=== PATIENT | male | born 1940 | race Hispanic/Latino ===

== ENCOUNTER 2018-03-14 22:22 | Inpatient (IN) | payer MEDICARE, OTHER ==
--- NOTE | 2018-03-14 23:30 | ED PDOC ---
Lower Extremity Pain/Injury Time Seen by Provider: 03/14/18 22:50 Chief Complaint (Nursing): Lower Extremity Problem/Injury Chief Complaint (Provider): Lower Extremity Problem/Injury History Per: Patient History/Exam Limitations: no limitations Onset/Duration Of Symptoms: Worse Since (7 days ago) Current Symptoms Are (Timing): Still Present Additional Complaint(s): 77 years old male with history of CHF, CAD presents to the ED complaining of bilateral chronic leg swelling that worsened since last week associated with weight gain about 10 pounds. Patient reports more weeping of edema during last week than usual. Patient denies any shortness of breath, chest pain, fever or cough. PMD: Mai Ball Past Medical History Reviewed: Historical Data, Nursing Documentation, Vital Signs Vital Signs: Last Vital Signs Temp 97.6 F 03/14/18 22:32 Pulse 69 03/14/18 22:32 Resp 18 03/14/18 22:32 BP 131/80 03/14/18 22:32 Pulse Ox 99 03/14/18 22:32 - Medical History PMH: CAD, CHF - Surgical History Surgical History: No Surg Hx - Family History Family History: States: Unknown Family Hx - Home Medications Home Medications: Ambulatory Orders Medication Instructions Recorded Apixaban [Eliquis] 2.5 mg PO BID 03/15/18 Atorvastatin [Lipitor] 20 mg PO DAILY 03/15/18 Furosemide [Lasix] 20 mg PO BID 03/15/18 Prednisone [Deltasone] 10 mg PO DAILY 03/15/18 - Allergies Allergies/Adverse Reactions: Allergies Allergy/AdvReac Type Severity Reaction Status Date / Time No Known Allergies Allergy Verified 03/14/18 22:45 Review of Systems ROS Statement: Except As Marked, All Systems Reviewed And Found Negative Constitutional: Negative for: Fever Cardiovascular: Negative for: Chest Pain Respiratory: Negative for: Cough, Shortness of Breath Musculoskeletal: Positive for: Other (Bilateral leg swelling) Physical Exam - Reviewed Nursing Documentation Reviewed: Yes Vital Signs Reviewed: Yes - Physical Exam Appears: Positive for: Non-toxic, No Acute Distress Head Exam: Positive for: ATRAUMATIC, NORMAL INSPECTION Skin: Positive for: Normal Color, Warm, Dry Eye Exam: Positive for: Normal appearance, EOMI, PERRL ENT: Positive for: Normal ENT Inspection Neck: Positive for: Normal, Painless ROM, Supple Cardiovascular/Chest: Positive for: Regular Rate, Rhythm. Negative for: Murmur Respiratory: Positive for: Normal Breath Sounds. Negative for: Respiratory Distress Gastrointestinal/Abdominal: Positive for: Normal Exam, Soft. Negative for: Tenderness Extremity: Positive for: Pedal Edema (Bilateral), Other (Chronic wound to left salas and left ankle lateral malleolus) Neurologic/Psych: Positive for: Alert, Oriented - Laboratory Results Result Diagrams: 03/14/18 23:30 03/14/18 23:30 - ECG ECG: Positive for: Interpreted By Me, Viewed By Me ECG Rhythm: Positive for: Sinus Rhythm, 1st Degree Heart Block, Right Bundle Branch Block. Negative for: Normal QRS, Normal ST Segment Rate: 67 O2 Sat by Pulse Oximetry: 99 (RA) Pulse Ox Interpretation: Normal - Radiology X-Ray: Interpreted by Me, Viewed By Me X-Ray Interpretation: Cardiomegaly, Other (vascular congestion) Medical Decision Making Medical Decision Making: Time: 2321 Initial impression: Bilateral leg swelling. Differential includes but not limited to CHF exacerbation. Initial plan: --EKH --BTN --BMP --Troponin --CBC --Chest X-Ray --Lasic 40 mg Po --Tylenol 325 mg Po 0000 Patient is transferred to Dr. Duarte's care from co. Scribe Attestation: Documented by Yue Dwyer acting as a scribe for Riley Lerner MD. Provider Scribe Attestation: All medical record entries made by the Scribe were at my direction and personally dictated by me. I have reviewed the chart and agree that the record accurately reflects my personal performance of the history, physical exam, medical decision making, and the department course for this patient. I have also personally directed, reviewed, and agree with the discharge instructions and disposition. Disposition - Clinical Impression Clinical Impression: CHF exacerbation - Patient ED Disposition Is Patient to be Admitted: Yes Discussed With : Franc Alvarez Doctor Will See Patient In The: Hospital Counseled Patient/Family Regarding: Studies Performed, Diagnosis - Disposition Disposition Time: 23:30 Condition: FAIR - Pt Status Changed To: Hospital Disposition Of: Observation - POA Present On Arrival: Pressure Ulcer
[2018-03-14 23:55] LABS: BASO # 0.1 K/uL (0.0-0.2); BASO % 0.5 % (0.0-2.0); EOS # 0.2 K/uL (0.0-0.7); LYMPH # 0.7 K/uL (1.0-4.3); LYMPH % 6.9 % (20.0-40.0); MEAN CELL VOLUME 95.9 fl (80.0-94.0); MEAN CORPUSCULAR HEMOGLOBIN 33.1 pg (27.0-31.0); MEAN CORPUSCULAR HGB CONC 34.5 g/dL (33.0-37.0); MEAN PLATELET VOLUME 10.4 fl (7.2-11.7); MONO # 0.3 K/uL (0.0-0.8); MONO % 3.2 % (0.0-10.0); NEUT % 87.4 % (50.0-75.0); NRBC % 0.2 % (0.0-0.0); PLATELET COUNT 157 K/uL (130-400); RBC 3.94 Mil/uL (4.40-5.90); RED CELL DISTRIBUTION WIDTH 16.2 % (11.5-14.5); WHITE BLOOD COUNT 10.4 K/uL (4.8-10.8)
[2018-03-15] LABS: CALCIUM 8.7 mg/dL (8.4-10.2)
[2018-03-15 00:21] LABS: TROPONIN I 0.799 ng/mL (0.00-0.120)
[2018-03-15 00:40] LABS: BANDS 1 % (0-2); EOSINOPHIL 1 % (0-7); LYMPHOCYTE 6 % (20-50); METAMYELOCYTE 1 % (0-0); MONOCYTE 7 % (0-10); NEUTROPHIL 84 % (42-75); TOTAL CELLS COUNTED 100
[2018-03-15 00:41] LABS: ANISOCYTOSIS SLIGHT; PLATELET ESTIMATE NORMAL (NORMAL); POIKILOCYTOSIS SLIGHT; TEARDROP CELLS SLIGHT
[2018-03-15 00:42] LABS: OVALOCYTES SLIGHT
--- NOTE | 2018-03-15 09:52 | RAD ---
HISTORY: leg swelling COMPARISON: No prior. FINDINGS: LUNGS: No active pulmonary disease. A small calcified granuloma seen the lateral mid left lung. PLEURA: No significant pleural effusion identified, no pneumothorax apparent. CARDIOVASCULAR: Cardiomegaly. No pulmonary derangement appreciated. OSSEOUS STRUCTURES: No significant abnormalities. VISUALIZED UPPER ABDOMEN: Normal. OTHER FINDINGS: None. IMPRESSION: Cardiomegaly. No pulmonary vascular congestion. No infiltrate bilaterally.
[2018-03-15] MEDS: Potassium Chloride 20 mEq ER Tab PO SCH (10:39)
--- NOTE | 2018-03-15 11:11 | CP.PCM.CON ---
History of Present Illness - History of Present Illness History of Present Illness: 77 years old male with history of CHF, CAD presents to the ED complaining of bilateral chronic leg swelling that worsened since last week associated with weight gain about 10 pounds. Patient reports more weeping of edema during last week than usual. Patient denies any shortness of breath, chest pain, fever or cough. Pt denies SOB / DAVID No chest pain Several months ago while living in [place] he had CHF / Cath with 2 Stents placed He has had a chronic problem with leg edema and a chronic stasis ulcer of his leg Troponin: elevated BNP: 33,200 Creatinine: 1.6 Review of Systems - Constitutional Constitutional: Weight Gain - Cardiovascular Cardiovascular: Leg Edema Past Patient History - Past Medical History & Family History Past Medical History?: Yes - Past Social History Smoking Status: Never Smoked - CARDIAC Hx Cardiac Disorders: Yes (HTN, CAD, CHF, High cholesterol) - PULMONARY Hx Respiratory Disorders: No - NEUROLOGICAL Hx Neurological Disorder: No - HEENT Hx HEENT Problems: No - RENAL Hx Chronic Kidney Disease: No - ENDOCRINE/METABOLIC Hx Endocrine Disorders: No - HEMATOLOGICAL/ONCOLOGICAL Hx Blood Disorders: No - INTEGUMENTARY Hx Dermatological Problems: No - MUSCULOSKELETAL/RHEUMATOLOGICAL Hx Musculoskeletal Disorders: No - GASTROINTESTINAL Hx Gastrointestinal Disorders: No - GENITOURINARY/GYNECOLOGICAL Hx Genitourinary Disorders: No - PSYCHIATRIC Hx Psychophysiologic Disorder: No - SURGICAL HISTORY Hx Surgeries: Yes Hx Orthopedic Surgery: Yes (ankle and knee surgery) - ANESTHESIA Hx Anesthesia: Yes Hx Anesthesia Reactions: No Meds Allergies/Adverse Reactions: Allergies Allergy/AdvReac Type Severity Reaction Status Date / Time No Known Allergies Allergy Verified 03/14/18 22:45 - Medications Medications: Current Medications Apixaban (Eliquis) 2.5 mg PO BID SAMANTHA PRN Reason: Protocol Last Admin: 03/15/18 10:39 Dose: 2.5 mg Atorvastatin Calcium (Lipitor) 20 mg PO DAILY [facility] Furosemide (Lasix) 40 mg IV Q12 [facility] Last Admin: 03/15/18 10:38 Dose: 40 mg Potassium Chloride (K-Dur 20 Meq Er Tab) 20 meq PO DAILY [facility]ANTHA Last Admin: 03/15/18 10:39 Dose: 20 meq Prednisone (Prednisone Tab) 10 mg PO DAILY [facility] Last Admin: 03/15/18 10:37 Dose: 10 mg Physical Exam - Head Exam Head Exam: NORMAL INSPECTION - Eye Exam Eye Exam: Normal appearance - ENT Exam ENT Exam: Normal Exam - Neck Exam Neck exam: Positive for: Normal Inspection - Respiratory Exam Respiratory Exam: NORMAL BREATHING PATTERN - Cardiovascular Exam Cardiovascular Exam: REGULAR RHYTHM - Extremities Exam Extremities exam: Positive for: pedal edema Results - Vital Signs Recent Vital Signs: Last Vital Signs Temp 97.4 F L 03/15/18 08:14 Pulse 66 03/15/18 08:14 Resp 18 03/15/18 08:14 BP 121/80 03/15/18 10:38 Pulse Ox 97 03/15/18 08:14 - Labs Result Diagrams: 03/14/18 23:30 03/14/18 23:30 Labs: Laboratory Results - last 24 hr 03/14/18 03/14/18 03/15/18 23:30 23:30 08:50 WBC 10.4 RBC 3.94 L Hgb 13.0 Hct 37.8 MCV 95.9 H MCH 33.1 H MCHC 34.5 RDW 16.2 H Plt Count 157 MPV 10.4 Neut % (Auto) 87.4 H Lymph % (Auto) 6.9 L Rogers % (Auto) 3.2 Eos % (Auto) 2.0 Baso % (Auto) 0.5 Neut # (Auto) 9.0 H Lymph # (Auto) 0.7 L Rogers # (Auto) 0.3 Eos # (Auto) 0.2 Baso # (Auto) 0.1 Neutrophils % (Manual) 84 H Band Neutrophils % 1 Lymphocytes % (Manual) 6 L Monocytes % (Manual) 7 Eosinophils % (Manual) 1 Metamyelocytes % 1 H Platelet Estimate Normal Poikilocytosis (manual Slight Anisocytosis (manual) Slight Tear Drop Cells Slight Ovalocytes Slight Sodium 134 Potassium 4.2 Chloride 95 L Carbon Dioxide 29 Anion Gap 14 BUN 61 H Creatinine 1.6 H Est GFR ( Amer) 51 Est GFR (Non-Af Amer) 42 Random Glucose 96 Calcium 8.7 Troponin I 0.7990 H* 0.7290 H* NT-Pro-B Natriuret Pep 92115 H Assessment & Plan (1) Acute on chronic left systolic heart failure Assessment and Plan: Pt will do well with Lasix BID IV Echo Status: Acute (2) Elevated troponin level Assessment and Plan: Most likely elevated from a combination of elevated Creatinine and BNP Status: Acute (3) Essential (primary) hypertension Status: Acute
[2018-03-15] MEDS: Promethazine DM 12.5 mg-30 mg/10 ml Syrup PO PRN ×2 (17:51→23:34)
[2018-03-16] MEDS: Potassium Chloride 20 mEq ER Tab PO SCH (08:40)
--- NOTE | 2018-03-16 10:09 | CP.PCM.HP ---
History of Present Illness - History of Present Illness History of Present Illness: This is a 77 y/o male admitted ofr worsening of leg edema for the past few weeks and weight gain of 10 pounds. He denies having any chest pain or SOB Noted to have elevated troponin and probnp. Has a hx of HTN King a cardiac stent placed few months ago in [place] where he used to live [facility]. He was told by his pmo analyst that he has severe tricuspid regurgitation and that he has cardiac dysfunction. hx of arthritis ( type?) hx of hyperglycemia Present on Admission - Present on Admission Any Indicators Present on Admission: No History of DVT/PE: No History of Uncontrolled Diabetes: No Urinary Catheter: No Decubitus Ulcer Present: No Past Patient History - Past Medical History & Family History Past Medical History?: Yes - Past Social History Smoking Status: Never Smoked - CARDIAC Hx Congestive Heart Failure: Yes - PULMONARY Hx Respiratory Disorders: No - NEUROLOGICAL Hx Neurological Disorder: No - HEENT Hx HEENT Problems: No - RENAL Hx Chronic Kidney Disease: No - ENDOCRINE/METABOLIC Hx Endocrine Disorders: No - HEMATOLOGICAL/ONCOLOGICAL Hx Blood Disorders: No - INTEGUMENTARY Hx Dermatological Problems: No - MUSCULOSKELETAL/RHEUMATOLOGICAL Hx Musculoskeletal Disorders: No - GASTROINTESTINAL Hx Gastrointestinal Disorders: No - GENITOURINARY/GYNECOLOGICAL Hx Genitourinary Disorders: No - PSYCHIATRIC Hx Psychophysiologic Disorder: No - SURGICAL HISTORY Hx Surgeries: Yes Hx Orthopedic Surgery: Yes (ankle and knee surgery) - ANESTHESIA Hx Anesthesia: Yes Hx Anesthesia Reactions: No Meds Allergies/Adverse Reactions: Allergies Allergy/AdvReac Type Severity Reaction Status Date / Time No Known Allergies Allergy Verified 03/14/18 22:45 Physical Exam - Head Exam Head Exam: NORMAL INSPECTION - Eye Exam Eye Exam: Normal appearance - ENT Exam ENT Exam: Mucous Membranes Moist - Respiratory Exam Respiratory Exam: Decreased Breath Sounds - Cardiovascular Exam Cardiovascular Exam: REGULAR RHYTHM - GI/Abdominal Exam GI & Abdominal Exam: Normal Bowel Sounds - Extremities Exam Additional comments: bilateral pitting leg edema up to the knees - Neurological Exam Neurological exam: CN II-XII Intact, Oriented x3 - Psychiatric Exam Psychiatric exam: Normal Mood Results - Vital Signs Recent Vital Signs: Last Vital Signs Temp 98.4 F 03/16/18 08:31 Pulse 65 03/16/18 08:31 Resp 20 03/16/18 08:31 BP 121/76 03/16/18 08:37 Pulse Ox 96 03/16/18 08:31 - Labs Result Diagrams: 03/14/18 23:30 03/16/18 10:23 Labs: Laboratory Results - last 24 hr 03/15/18 17:00 Troponin I 0.6450 H* Assessment & Plan (1) Right-sided heart failure Status: Acute (2) CHF exacerbation Status: Acute (3) Hypertension Status: Acute (4) Arthritis Status: Acute (5) Tricuspid regurgitation Status: Acute (6) Hyperglycemia Status: Acute - Assessment and Plan (Free Text) Plan: cont meds diuretics Cardiology eval troponin ECHO accucheck artyhritis profile
--- NOTE | 2018-03-16 10:10 | CP.PCM.PN ---
Subjective - Date & Time of Evaluation Date of Evaluation: 03/16/18 Time of Evaluation: 10:09 - Subjective Subjective: Patient feel a lot better today Still with leg edema Tolerates high dose Lasix. Noted elevated accuchecks Noted elevated troponins Objective - Vital Signs/Intake and Output Vital Signs (last 24 hours): Temp Pulse Resp BP Pulse Ox 98.4 F 65 20 121/76 96 03/16/18 08:31 03/16/18 08:31 03/16/18 08:31 03/16/18 08:37 03/16/18 08:31 Intake and Output: 03/16/18 03/16/18 06:59 18:59 Intake Total 200 Output Total 650 Balance -450 - Medications Medications: Current Medications Apixaban (Eliquis) 2.5 mg PO BID SAMANTHA PRN Reason: Protocol Last Admin: 03/16/18 08:39 Dose: 2.5 mg Atorvastatin Calcium (Lipitor) 20 mg PO DAILY [facility] Last Admin: 03/16/18 08:39 Dose: 20 mg Furosemide (Lasix) 40 mg IV Q12 [facility]ANTHA Last Admin: 03/16/18 08:37 Dose: 40 mg Potassium Chloride (K-Dur 20 Meq Er Tab) 20 meq PO DAILY [facility] Last Admin: 03/16/18 08:40 Dose: 20 meq Prednisone (Prednisone Tab) 10 mg PO DAILY [facility] Last Admin: 03/16/18 08:39 Dose: 10 mg Promethazine HCl/Dextromethorphan (Phenergan Dm Syrup) 10 ml PO Q6 PRN PRN Reason: Cough Last Admin: 03/15/18 23:34 Dose: 10 ml - Labs Labs: 03/14/18 23:30 03/14/18 23:30 - Head Exam Head Exam: NORMAL INSPECTION - Eye Exam Eye Exam: Normal appearance - Respiratory Exam Respiratory Exam: Clear to Ausculation Bilateral - Cardiovascular Exam Cardiovascular Exam: REGULAR RHYTHM - GI/Abdominal Exam GI & Abdominal Exam: Normal Bowel Sounds - Extremities Exam Additional comments: bilateral pitting leg edema - Neurological Exam Neurological Exam: Awake, Oriented x3 - Psychiatric Exam Psychiatric exam: Normal Mood Assessment and Plan (1) Arthritis Status: Acute (2) CHF exacerbation Status: Acute (3) Essential (primary) hypertension Status: Acute (4) Hyperglycemia Status: Acute (5) Right-sided heart failure Status: Acute - Assessment and Plan (Free Text) Plan: Con tmeds check A1c arthritis profile cont meds follow up with Dr Bal
[2018-03-16 10:38] LABS: CALCIUM 8.5 mg/dL (8.4-10.2)
--- NOTE | 2018-03-16 11:37 | CARD ---
APPROVED REPORT EKG Measurement Heart [id number] <Conclusion> Atrial flutter with varialbe block Rightward axis Pulmonary disease pattern Incomplete right bundle branch block Septal infarct, age undetermined ST & T wave abnormality, consider inferior ischemia Abnormal ECG
--- NOTE | 2018-03-16 14:12 | CP.PCM.CON ---
History of Present Illness - History of Present Illness History of Present Illness: Podiatry Consult Note for Dr. Jones 77M with PMH CHF, CAD, HTN seen at bedside accompanied by daughter for b/l LE swelling with blistering to R leg and venous stasis ulcerations to left. Per patient's daughter, patient was supposed to attending his first visit at the wound care center this morning with Dr. Jones. Patient states that he came in to the hospital after the weeping of his b/l LE became worse than normal and he noticed rapid gain of roughly ten pounds. Patient states that he has been dealing with the wounds on his right leg for a long period of time but does not recall when they first started. His daughter states that he had previously been treated by a different application development specialist but decided to start coming to [facility] because it is closer. Patient is AAO x 3 and NAD during examination. Denies any acute pedal complaints. States that he experiences pain with dressing changes. Denies any recent N/V/F/C/CP/SOB/D/posterior calf pain Review of Systems - Review of Systems All systems: reviewed and no additional remarkable complaints except Review of Systems: as per HPI Past Patient History - Past Medical History & Family History Past Medical History?: Yes - Past Social History Smoking Status: Never Smoked - CARDIAC Hx Congestive Heart Failure: Yes - PULMONARY Hx Respiratory Disorders: No - NEUROLOGICAL Hx Neurological Disorder: No - HEENT Hx HEENT Problems: No - RENAL Hx Chronic Kidney Disease: No - ENDOCRINE/METABOLIC Hx Endocrine Disorders: No - HEMATOLOGICAL/ONCOLOGICAL Hx Blood Disorders: No - INTEGUMENTARY Hx Dermatological Problems: No - MUSCULOSKELETAL/RHEUMATOLOGICAL Hx Musculoskeletal Disorders: No - GASTROINTESTINAL Hx Gastrointestinal Disorders: No - GENITOURINARY/GYNECOLOGICAL Hx Genitourinary Disorders: No - PSYCHIATRIC Hx Psychophysiologic Disorder: No - SURGICAL HISTORY Hx Surgeries: Yes Hx Orthopedic Surgery: Yes (ankle and knee surgery) - ANESTHESIA Hx Anesthesia: Yes Hx Anesthesia Reactions: No Meds Allergies/Adverse Reactions: Allergies Allergy/AdvReac Type Severity Reaction Status Date / Time No Known Allergies Allergy Verified 03/14/18 22:45 - Medications Medications: Current Medications Apixaban (Eliquis) 2.5 mg PO BID SAMANTHA PRN Reason: Protocol Last Admin: 03/16/18 08:39 Dose: 2.5 mg Atorvastatin Calcium (Lipitor) 20 mg PO DAILY [facility] Last Admin: 03/16/18 08:39 Dose: 20 mg Furosemide (Lasix) 40 mg IV Q12 [facility] Last Admin: 03/16/18 08:37 Dose: 40 mg Potassium Chloride (K-Dur 20 Meq Er Tab) 20 meq PO DAILY [facility] Last Admin: 03/16/18 08:40 Dose: 20 meq Prednisone (Prednisone Tab) 10 mg PO DAILY [facility] Last Admin: 03/16/18 08:39 Dose: 10 mg Promethazine HCl/Dextromethorphan (Phenergan Dm Syrup) 10 ml PO Q6 PRN PRN Reason: Cough Last Admin: 03/15/18 23:34 Dose: 10 ml Physical Exam - Constitutional Appears: Well, Non-toxic, No Acute Distress - Head Exam Head Exam: ATRAUMATIC, NORMOCEPHALIC - Eye Exam Eye Exam: EOMI, Normal appearance - ENT Exam ENT Exam: Mucous Membranes Moist, Normal Exam - Neck Exam Neck exam: Positive for: Full Rom. Negative for: Tenderness - Respiratory Exam Respiratory Exam: NORMAL BREATHING PATTERN. absent: Respiratory Distress - Extremities Exam Additional comments: B/l LE focused exam Vasc: DP/PT pulses non palpable secondary to 2+ pitting edema b/l. CFT < 3 seconds to all digits b/l. Skin temperature warm to warm from proximal to distal. Neuro: Epicritic and protective sensation grossly intact b/l Derm: Roughly 4 cm x 3 cm x 0.2 cm venous stasis ulceration noted to posterior left calf with fibrogranular base. No malodor, minimal serous drainage, no erythema, no tracking, tunneling or undermining, no other clinical signs of infection. Approximately 0.5 x 0.5 x 0.2 cm venous stasis ulceration noted to lateral left malleoli with mostly fibrous base. No malodor, minimal serous drainage, no erythema, no tracking, tunneling or undermining, no other clinical signs of infection. RLE noted to be erythematous, severely edematous with small serous fluid filled blisters noted. No open wounds noted. Dermatologic changes most consistent with venous stasis MSK: POP to ulceration sites. ROM WNL at all major joints. No gross deformities noted - Back Exam Back exam: absent: CVA tenderness (L), CVA tenderness (R) - Neurological Exam Neurological exam: Alert, Oriented x3 - Psychiatric Exam Psychiatric exam: Normal Affect, Normal Mood Results - Vital Signs Recent Vital Signs: Last Vital Signs Temp 98.3 F 03/16/18 13:31 Pulse 66 03/16/18 13:31 Resp 22 03/16/18 13:31 BP 121/74 03/16/18 13:31 Pulse Ox 98 03/16/18 13:31 - Labs Result Diagrams: 03/14/18 23:30 03/16/18 10:23 Labs: Laboratory Results - last 24 hr 03/15/18 03/16/18 17:00 10:23 Sodium 134 Potassium 3.5 L Chloride 94 L Carbon Dioxide 28 Anion Gap 16 BUN 60 H Creatinine 1.6 H Est GFR ( Amer) 51 Est GFR (Non-Af Amer) 42 Random Glucose 232 H Calcium 8.5 Troponin I 0.6450 H* NT-Pro-B Natriuret Pep 48332 H Assessment & Plan - Assessment and Plan (Free Text) Assessment: 77M with PMH CHF, CAD, HTN seen at bedside accompanied by daughter for b/l LE swelling with blistering to R leg and venous stasis ulcerations to left Plan: Patient seen and evaluated Plan discussed with attending Dr. Jones Afebrile, absent leukocytosis Wounds dressed with adaptic, DSD, ABD, JANNA No plan for surgical intervention at this time Upon discharge, patient can follow up with Dr. Jones in wound care center Podiatry will continue to follow while patient in house - Date & Time Date: 03/16/18 Time: 14:37
[2018-03-17] MEDS: Promethazine DM 12.5 mg-30 mg/10 ml Syrup PO PRN ×3 (05:31→20:18)
--- NOTE | 2018-03-17 08:12 | CARD ---
APPROVED REPORT EXAM: Two-dimensional and M-mode echocardiogram with Doppler and color Doppler. Other Information Quality : GoodRhythm : NSR INDICATION Congestive Heart Failure Surgery/Intervention Status/Post Intervention: Stent 2D DIMENSIONS IVSd1.61 (0.7-1.1cm)LVDd3.42 (3.9-5.9cm) LVOT Diameter1.90 (1.8-2.4cm)PWd1.80 (0.7-1.1cm) IVSs1.79 (0.8-1.2cm)LVDs2.08 (2.5-4.0cm) FS (%) 39.2 %PWs3.04 (0.8-1.2cm) M-Mode DIMENSIONS Left Atrium (MM)6.09 (2.5-4.0cm)IVSd2.08 (0.7-1.1cm) Aortic Root2.25 (2.2-3.7cm)LVDd3.18 (4.0-5.6cm) Aortic Cusp Exc.1.72 (1.5-2.0cm)PWd2.65 (0.7-1.1cm) IVSs2.05 cmFS (%) 32 % LVDs2.15 (2.0-3.8cm)PWs3.11 cm Mitral Valve MV E Csyxrqyi64.0cm/sMV DECEL [id number] A Lbqycuce50.4cm/s MV FZV34wgD/A ratio2.3MVA (PHT)7.32cm2 TDI Lateral E' Peak V8.80cm/sMedial E' Peak V8.31cm/sE/Lateral E'8.8 E/Medial E'9.3 Pulmonary Valve PV Peak Puobalqb85.0cm/s Tricuspid Valve TR Peak Ymibddlt697bk/sRAP [id number] Peak Gr.20mmHg [id number] LEFT VENTRICLE The left ventricle is normal size. There is moderate to severe concentric left ventricular hypertrophy. Left ventricle systolic function is borderline. The Ejection Fraction is 45-50%. Septum displayed mild paradoxical motion probably due to RV preponderence. Other segments contracted adequately. Pt had a flutter. RIGHT VENTRICLE The right ventricle is moderately dilated. The right ventricle is mildly hypertrophied. The right ventricular systolic function is normal. ATRIA The left atrium is moderately dilated. The right atrium is moderately dilated. AORTIC VALVE The aortic valve is normal in structure. No aortic regurgitation is present. There is no aortic valvular stenosis. MITRAL VALVE The mitral valve is normal in structure. There is no evidence of mitral valve prolapse. There is no mitral valve stenosis. Mitral regurgitation is moderate to severe. TRICUSPID VALVE The leaflets appeared " fluffy" suggestive of myxomatous chenge. No prolapse seen. There is severe tricuspid regurgitation. Right ventricular systolic pressure is estimated at 35 mmHg. There is mild pulmonary hypertension. PULMONIC VALVE The pulmonary valve is normal in structure. There is no pulmonic valvular regurgitation. GREAT VESSELS The aortic root is normal in size. The IVC is dilated. The IVC collapses <50% with inspiration. PERICARDIAL EFFUSION The pericardium appears normal. <Conclusion> The left ventricle is normal size. There is moderate to severe concentric left ventricular hypertrophy. Septum displayed mild paradoxical motion probably due to RV preponderence. Other segments contracted adequately. Left ventricle systolic function is borderline. The Ejection Fraction is 45-50%. The right ventricle is moderately dilated. The right ventricular systolic function is normal. The left atrium is moderately dilated. The right atrium is moderately dilated. Mitral regurgitation is moderate to severe. 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 No prolapse seen. There is severe tricuspid regurgitation. There is mild pulmonary hypertension. The IVC is dilated. The IVC collapses <50% with inspiration.
[2018-03-17] MEDS: Potassium Chloride 20 mEq ER Tab PO SCH (08:54)
--- NOTE | 2018-03-17 10:45 | CP.PCM.PN ---
Subjective - Date & Time of Evaluation Date of Evaluation: 03/17/18 Time of Evaluation: 10:43 - Subjective Subjective: Podiatry Progress Note for Dr. Jones 77M seen at bedside for clinically uninfected venous stasis ulcerations of left leg and venous congestion with weeping blisters of right leg. Patient is AAO x 3 and NAD at time of visit. Denies any acute overnight events or new pedal complaints. States that pain is well controlled. Denies any recent N/V/F/C/CP/ SOB/D/posterior calf pain when squeezed Objective - Vital Signs/Intake and Output Vital Signs (last 24 hours): Temp Pulse Resp BP Pulse Ox 97.7 F 80 18 123/70 98 03/17/18 08:00 03/17/18 08:00 03/17/18 08:00 03/17/18 08:54 03/17/18 08:00 - Medications Medications: Current Medications Apixaban (Eliquis) 2.5 mg PO BID [facility] PRN Reason: Protocol Last Admin: 03/17/18 08:54 Dose: 2.5 mg Atorvastatin Calcium (Lipitor) 20 mg PO DAILY@2200 [facility] Furosemide (Lasix) 40 mg IV Q12 [facility] Last Admin: 03/17/18 08:54 Dose: 40 mg Insulin Human Lispro (Humalog) 0 units SC ACHS [facility] PRN Reason: Protocol Potassium Chloride (K-Dur 20 Meq Er Tab) 20 meq PO DAILY [facility] Last Admin: 03/17/18 08:54 Dose: 20 meq Prednisone (Prednisone Tab) 10 mg PO DAILY [facility] Last Admin: 03/17/18 08:54 Dose: 10 mg Promethazine HCl/Dextromethorphan (Phenergan Dm Syrup) 10 ml PO Q6 PRN PRN Reason: Cough Last Admin: 03/17/18 05:31 Dose: 10 ml - Labs Labs: 03/14/18 23:30 03/16/18 10:23 - Constitutional Appears: Well, Non-toxic, No Acute Distress - Head Exam Head Exam: ATRAUMATIC, NORMOCEPHALIC - Extremities Exam Additional comments: B/l LE focused exam Vasc: DP/PT pulses non palpable secondary to 2+ pitting edema of right leg. Pulses palpable 1/4 on left leg. Edema of left leg is significantly improved over yesterday secondary to compressive dressings. CFT < 3 seconds to all digits b/l. Skin temperature warm to warm from proximal to distal. Neuro: Epicritic and protective sensation grossly intact b/l Derm: Roughly 4 cm x 3 cm x 0.2 cm venous stasis ulceration noted to posterior left calf with fibrogranular base. No malodor, minimal serous drainage, no erythema, no tracking, tunneling or undermining, no other clinical signs of infection. Approximately 0.5 x 0.5 x 0.2 cm venous stasis ulceration noted to lateral left malleoli with mostly fibrous base. No malodor, minimal serous drainage, no erythema, no tracking, tunneling or undermining, no other clinical signs of infection. RLE noted to be erythematous, severely edematous with small serous fluid filled blisters noted. No open wounds noted. Dermatologic changes most consistent with venous stasis MSK: POP to ulceration sites. ROM WNL at all major joints. No gross deformities noted - Neurological Exam Neurological Exam: Alert, Awake, Oriented x3 - Psychiatric Exam Psychiatric exam: Normal Affect, Normal Mood Assessment and Plan - Assessment and Plan (Free Text) Assessment: 77M seen at bedside for clinically uninfected venous stasis ulcerations of left leg and venous congestion with weeping blisters of right leg Plan: Patient seen and evaluated Plan discussed with attending Dr. Jones Afebrile Santyl applied to all wounds Both legs dressed with Adaptic, ABD, DSD, Kirlix and JANNA for compression No plan for surgical intervention at this time Upon discharge, patient can follow up with Dr. Jones in wound care center Podiatry will continue to follow while patient in house
--- NOTE | 2018-03-17 12:43 | CP.PCM.PN ---
Subjective - Date & Time of Evaluation Date of Evaluation: 03/17/18 Time of Evaluation: 12:05 - Subjective Subjective: Spoke with BALLASTER at [facility] in [place] re past med issues Has severe RV failure Cor stents put in 2015 are patent on F/U cath in 03/2017 Diuretics were D/Chong before trip from [place] to [place] Has developed swelling without diuretics (being reintroduced now) Now has ascites++ A Flutter with HR 74 BPM BP 124/70 mm Hg JVP full Pedal oedema and stasis wounds++ Have reintroduced Spironolactone with IV Lasix Will monitor BP/K+ and Weight Prednisone was supposed to be tapered off by end of January Have reduced it Objective - Vital Signs/Intake and Output Vital Signs (last 24 hours): Temp Pulse Resp BP Pulse Ox 97.7 F 68 18 123/70 98 03/17/18 08:00 03/17/18 09:00 03/17/18 08:00 03/17/18 08:54 03/17/18 08:00 - Medications Medications: Current Medications Apixaban (Eliquis) 2.5 mg PO BID [facility] PRN Reason: Protocol Last Admin: 03/17/18 08:54 Dose: 2.5 mg Atorvastatin Calcium (Lipitor) 20 mg PO DAILY@2200 [facility] Furosemide (Lasix) 40 mg IV Q12 [facility] Last Admin: 03/17/18 08:54 Dose: 40 mg Insulin Human Lispro (Humalog) 0 units SC ACHS [facility] PRN Reason: Protocol Potassium Chloride (K-Dur 20 Meq Er Tab) 20 meq PO DAILY [facility] Last Admin: 03/17/18 08:54 Dose: 20 meq Prednisone (Prednisone Tab) 5 mg PO DAILY [facility] Promethazine HCl/Dextromethorphan (Phenergan Dm Syrup) 10 ml PO Q6 PRN PRN Reason: Cough Last Admin: 03/17/18 05:31 Dose: 10 ml Spironolactone (Aldactone) 50 mg PO BID [facility] - Labs Labs: 03/14/18 23:30 03/16/18 10:23
[2018-03-17] MEDS: Insulin Lispro (humaLOG) 100 Units/ml Inj SC SCH ×3 (13:09→22:24)
--- NOTE | 2018-03-17 23:36 | CP.PCM.PN ---
Subjective - Date & Time of Evaluation Date of Evaluation: 03/17/18 Time of Evaluation: 13:00 - Subjective Subjective: Patient has less SOB and noted less leg edema Noted ECHO report Noted elevated accuchecks Objective - Vital Signs/Intake and Output Vital Signs (last 24 hours): Temp Pulse Resp BP Pulse Ox 97.5 F L 80 20 134/77 95 03/17/18 20:14 03/17/18 20:14 03/17/18 20:14 03/17/18 22:25 03/17/18 20:14 Intake and Output: 03/17/18 03/18/18 18:59 06:59 Intake Total 1000 Balance 1000 - Medications Medications: Current Medications Apixaban (Eliquis) 2.5 mg PO BID [facility] PRN Reason: Protocol Last Admin: 03/17/18 17:13 Dose: 2.5 mg Atorvastatin Calcium (Lipitor) 20 mg PO DAILY@2200 [facility] Last Admin: 03/17/18 22:26 Dose: 20 mg Furosemide (Lasix) 40 mg IV Q12 [facility] Last Admin: 03/17/18 22:25 Dose: 40 mg Insulin Human Lispro (Humalog) 0 units SC ACHS [facility] PRN Reason: Protocol Last Admin: 03/17/18 22:24 Dose: Not Given Potassium Chloride (K-Dur 20 Meq Er Tab) 20 meq PO DAILY [facility] Last Admin: 03/17/18 08:54 Dose: 20 meq Prednisone (Prednisone Tab) 5 mg PO DAILY [facility] Promethazine HCl/Dextromethorphan (Phenergan Dm Syrup) 10 ml PO Q6 PRN PRN Reason: Cough Last Admin: 03/17/18 20:18 Dose: 10 ml Spironolactone (Aldactone) 50 mg PO BID [facility] Last Admin: 03/17/18 17:12 Dose: 50 mg - Labs Labs: 03/14/18 23:30 03/16/18 10:23 - Head Exam Head Exam: NORMAL INSPECTION - ENT Exam ENT Exam: Mucous Membranes Moist - Respiratory Exam Respiratory Exam: Clear to Ausculation Bilateral, NORMAL BREATHING PATTERN - Cardiovascular Exam Cardiovascular Exam: REGULAR RHYTHM - GI/Abdominal Exam GI & Abdominal Exam: Normal Bowel Sounds - Neurological Exam Neurological Exam: CN II-XII Intact, Oriented x3 Assessment and Plan (1) CHF exacerbation Status: Acute (2) Essential (primary) hypertension Status: Acute (3) Hyperglycemia Status: Acute (4) Right-sided heart failure Status: Acute (5) Arthritis Status: Acute (6) Atrial flutter Status: Acute - Assessment and Plan (Free Text) Plan: Cont meds check lipids a1c tsh accucheck with coverage
[2018-03-18] MEDS: Insulin Lispro (humaLOG) 100 Units/ml Inj SC SCH ×4 (06:48→22:13)
[2018-03-18 08:08] LABS: ALBUMIN 3.1 g/dL (3.5-5.0); CALCIUM 8.9 mg/dL (8.4-10.2); URIC ACID 12.6 mg/Dl (3.5-8.5)
[2018-03-18] MEDS: Potassium Chloride 20 mEq ER Tab PO SCH (09:04)
[2018-03-18] MEDS: Promethazine DM 12.5 mg-30 mg/10 ml Syrup PO PRN ×2 (09:05→21:43)
[2018-03-18 09:34] LABS: T3 0.568 nmol/L (1.49-2.60); T4 5.25 ug/dl (5.5-11.0)
--- NOTE | 2018-03-18 10:07 | CP.PCM.PN ---
Subjective - Date & Time of Evaluation Date of Evaluation: 03/18/18 Time of Evaluation: 10:04 - Subjective Subjective: Podiatry progress note for Robert Calvillo 77 y M pt seen and evaluated by bedside for clinically uninfected venous stasis ulcerations of left leg and venous congestion with weeping blisters of right leg. Patient is AAO x 3 and resting with no acute distress at time of visit. Patient denies any overnight acute events. Patient denies any new complaint in his lower extremities. Pt denies any recent F/N/V/C or SOB. Objective - Vital Signs/Intake and Output Vital Signs (last 24 hours): Temp Pulse Resp BP Pulse Ox 97.8 F 72 18 124/82 96 03/18/18 08:08 03/18/18 08:08 03/18/18 08:08 03/18/18 09:04 03/18/18 08:08 Intake and Output: 03/18/18 03/18/18 06:59 18:59 Intake Total 1000 Balance 1000 - Medications Medications: Current Medications Apixaban (Eliquis) 2.5 mg PO BID [facility] PRN Reason: Protocol Last Admin: 03/18/18 09:04 Dose: 2.5 mg Atorvastatin Calcium (Lipitor) 20 mg PO DAILY@2200 [facility] Last Admin: 03/17/18 22:26 Dose: 20 mg Furosemide (Lasix) 40 mg IV Q12 [facility] Last Admin: 03/18/18 09:04 Dose: 40 mg Insulin Human Lispro (Humalog) 0 units SC ACHS [facility] PRN Reason: Protocol Last Admin: 03/18/18 06:48 Dose: Not Given Potassium Chloride (K-Dur 20 Meq Er Tab) 20 meq PO DAILY [facility] Last Admin: 03/18/18 09:04 Dose: 20 meq Prednisone (Prednisone Tab) 5 mg PO DAILY [facility] Last Admin: 03/18/18 09:04 Dose: 5 mg Promethazine HCl/Dextromethorphan (Phenergan Dm Syrup) 10 ml PO Q6 PRN PRN Reason: Cough Last Admin: 03/18/18 09:05 Dose: 10 ml Spironolactone (Aldactone) 50 mg PO BID [facility] Last Admin: 03/18/18 09:04 Dose: 50 mg - Labs Labs: 03/14/18 23:30 03/18/18 04:20 - Constitutional Appears: Well, Non-toxic, No Acute Distress - Head Exam Head Exam: ATRAUMATIC, NORMOCEPHALIC - Extremities Exam Extremities Exam: Pedal Edema Additional comments: B/l LE focused exam Vasc: R DP/PT pulses are non palpable secondary to 1+ pitting edema of right leg. L DP/PT are 1/4 on left leg. minimal pitting edema of the L leg and +1 pitting edema of the R leg. CFT < 3 seconds to all digits b/l. Skin temperature warm to warm from proximal to distal. edema to both legs improved over yesterday. Neuro: Epicritic and protective sensation grossly intact b/l Derm: Roughly 4 cm x 3 cm x 0.2 cm venous stasis ulceration noted to posterior left calf with fibrogranular base 50:50. No malodor, minimal serous drainage, no erythema, no tracking, tunneling or undermining, no other clinical signs of active bacterial infection. Approximately 0.5 x 0.5 x 0.2 cm venous stasis ulceration noted to lateral left malleoli with mostly fibrous base. No malodor, minimal serous drainage, no erythema, no tracking, tunneling or undermining, no other clinical signs of active bacterial infection. R LE noted to be erythematous, still edematous but the edema went down than yesterday with small serous fluid filled blisters noted. No open wounds noted. Dermatologic changes most consistent with venous stasis MSK: POP to ulceration sites. ROM WNL at all major joints. No gross deformities noted - Neurological Exam Neurological Exam: Alert, Awake, Oriented x3 - Psychiatric Exam Psychiatric exam: Normal Mood Assessment and Plan - Assessment and Plan (Free Text) Assessment: 77 y/o M patient seen and evaluated at the bed side for clinically uninfected venous stasis ulcerations of left leg and venous congestion with weeping blisters of right leg Plan: Patient seen and evaluated Plan discussed with attending Dr. Jones Afebrisnaya. Santyl applied to all wounds Both legs dressed with Non adhesive dressing, ABD, DSD, Kerlix and JANNA for compression No plan for surgical intervention at this time. Podiatry will continue to follow while patient in house
[2018-03-18] MEDS ORDERED: metOLazone 5 MG TAB PO ONE (12:34)
--- NOTE | 2018-03-18 12:52 | CP.PCM.PN ---
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 on Apixiban (had taken Warfarin in the past) Chronic venous disease with stasis related ulcers on legs Lt>Rt Had been placed on Prednisone for "suspected" pyoderma gangrenosum It was to be tapred and D/Chong by end of January (pt was still on it at admission here) Diuretics were held for pt to make the plane trip to [place] With continued steroids and absent diuretics pt rapidly gained weight and had severely swollen feet+ Ascites Steroids are being tapered and pt being diuresed Has lost 2 lbs overnight BP 130/70 mm Hg Labs show stable BUN/Creatinin and Na+/K+ Objective - Vital Signs/Intake and Output Vital Signs (last 24 hours): Temp Pulse Resp BP Pulse Ox 98 F 68 18 125/77 95 03/18/18 12:23 03/18/18 12:23 03/18/18 12:23 03/18/18 12:23 03/18/18 12:23 Intake and Output: 03/18/18 03/18/18 06:59 18:59 Intake Total 1000 Balance 1000 - Medications Medications: Current Medications Apixaban (Eliquis) 2.5 mg PO BID [facility] PRN Reason: Protocol Last Admin: 03/18/18 09:04 Dose: 2.5 mg Atorvastatin Calcium (Lipitor) 20 mg PO DAILY@2200 [facility] Last Admin: 03/17/18 22:26 Dose: 20 mg Furosemide (Lasix) 40 mg IV Q12 [facility] Last Admin: 03/18/18 09:04 Dose: 40 mg Insulin Detemir (Levemir) 5 units SC HS [facility] Insulin Human Lispro (Humalog) 0 units SC ACHS [facility] PRN Reason: Protocol Last Admin: 03/18/18 12:31 Dose: 3 unit Lactic Acid (Lac-Hydrin 12% Cream (140 G)) 1 ea TOP BID [facility] Metolazone (Zaroxolyn) 5 mg PO ONCE ONE Stop: 03/18/18 12:35 Potassium Chloride (K-Dur 20 Meq Er Tab) 20 meq PO DAILY [facility] Last Admin: 03/18/18 09:04 Dose: 20 meq Prednisone (Prednisone Tab) 5 mg PO DAILY [facility] Last Admin: 03/18/18 09:04 Dose: 5 mg Promethazine HCl/Dextromethorphan (Phenergan Dm Syrup) 10 ml PO Q6 PRN PRN Reason: Cough Last Admin: 03/18/18 09:05 Dose: 10 ml Sitagliptin Phosphate (Januvia) 50 mg PO DAILY [facility] Last Admin: 03/18/18 12:31 Dose: 50 mg Spironolactone (Aldactone) 50 mg PO BID [facility] Last Admin: 03/18/18 09:04 Dose: 50 mg - Labs Labs: 03/14/18 23:30 03/18/18 04:20
--- NOTE | 2018-03-18 13:05 | PQF ---
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 Please clarify documentation or clinical relevance for the clinical / diagnostic findings or whether those are insignificant or unable to be further specified. The patient's Clinical Indicators include: Patient has recently moved from [place]. BUN 61, 60, Creatinine 1.6, 1.6, GFR ) ) 51, GFR ( Non ) 51 Query created by: Charlene Mares on 03/17/2018 10:45 AM Electronically signed by: Franc Alvarez MD 03/18/2018 1:02 PM
--- NOTE | 2018-03-18 13:05 | PQF ---
CDI RESPONSE TEXT: Atrial flutter indication CDI QUERY TEXT: Medication Correlation for Diagnosis Your help is needed in capturing diagnoses for the corresponding medications ordered. Please clarify in the documentation diagnoses for the following medication(s). Medications: The patient's Clinical Indicators include: Patient is on Eliquis. Documentation of a history of HTN , CAD , CHF and cardiac stents placed a few months ago in [place]. Troponin x 3 elevated Cardiology consult: Acute on chronic CHF, Elevated troponin most likely from a combination of elevate d creatinine and BNP Query created by: Charlene Mares on 03/17/2018 10:55 AM Electronically signed by: Franc Alvarez MD 03/18/2018 1:02 PM
[2018-03-18] MEDS: Ammonium Lactate 12% Cream (140 g) TOP SCH (16:51)
[2018-03-18] MEDS ORDERED: Insulin Detemir 100 Units/ml Inj SC SCH (22:00)
[2018-03-19] MEDS: Promethazine DM 12.5 mg-30 mg/10 ml Syrup PO PRN (02:40)
[2018-03-19 06:31] LABS: ALB/GLOB RATIO 0.9 (1.0-2.1); ALBUMIN 3.2 g/dL (3.5-5.0)
[2018-03-19] MEDS: Insulin Lispro (humaLOG) 100 Units/ml Inj SC SCH ×3 (06:57→16:32)
[2018-03-19] MEDS: Potassium Chloride 20 mEq ER Tab PO SCH (08:29)
[2018-03-19] MEDS: Ammonium Lactate 12% Cream (140 g) TOP SCH ×2 (08:31→16:35)
--- NOTE | 2018-03-19 10:01 | CP.PCM.PN ---
Subjective - Date & Time of Evaluation Date of Evaluation: 03/19/18 Time of Evaluation: 09:58 - Subjective Subjective: Podiatry progress note for Dr. Jones, 77YO male patient see and evaluated by bedside for clinically noninfected venous stasis ulceration of left leg, and venous congestion with weeping blisters of right leg. Patient is seen resting comfortably. Patient is not in any acute distress. AAO x3. Patients left leg shows less edema than yesterday, however edema to right has remained the same. Patient denies any acute overnight events. Patient denies any new complaints at this time. Denies F/N/V/ SOB/C. Objective - Vital Signs/Intake and Output Vital Signs (last 24 hours): Temp Pulse Resp BP Pulse Ox 98 F 66 18 117/80 95 03/19/18 08:01 03/19/18 08:01 03/19/18 08:01 03/19/18 08:30 03/19/18 08:01 - Medications Medications: Current Medications Apixaban (Eliquis) 2.5 mg PO BID [facility] PRN Reason: Protocol Last Admin: 03/19/18 08:29 Dose: 2.5 mg Atorvastatin Calcium (Lipitor) 20 mg PO DAILY@2200 [facility] Last Admin: 03/18/18 21:43 Dose: 20 mg Furosemide (Lasix) 40 mg IV Q12 [facility] Last Admin: 03/19/18 08:30 Dose: 40 mg Insulin Detemir (Levemir) 5 units SC HS [facility] Last Admin: 03/18/18 22:00 Dose: 5 u Insulin Human Lispro (Humalog) 0 units SC ACHS [facility] PRN Reason: Protocol Last Admin: 03/19/18 06:57 Dose: Not Given Lactic Acid (Lac-Hydrin 12% Cream (140 G)) 1 ea TOP BID [facility] Last Admin: 03/19/18 08:31 Dose: 1 applic Potassium Chloride (K-Dur 20 Meq Er Tab) 20 meq PO DAILY [facility] Last Admin: 03/19/18 08:29 Dose: 20 meq Prednisone (Prednisone Tab) 5 mg PO DAILY [facility] Last Admin: 03/19/18 08:30 Dose: 5 mg Promethazine HCl/Dextromethorphan (Phenergan Dm Syrup) 10 ml PO Q6 PRN PRN Reason: Cough Last Admin: 06/21/18 02:40 Dose: 10 ml Sitagliptin Phosphate (Januvia) 50 mg PO DAILY [facility] Last Admin: 03/19/18 08:29 Dose: 50 mg Spironolactone (Aldactone) 50 mg PO BID [facility] Last Admin: 03/19/18 08:30 Dose: 50 mg - Labs Labs: 03/14/18 23:30 03/19/18 04:20 - Constitutional Appears: Well, Non-toxic, No Acute Distress - Head Exam Head Exam: ATRAUMATIC, NORMOCEPHALIC - Extremities Exam Additional comments: B/L LE focused exam Vasc: R DP/PT pulses are non palpable secondary to edema. L DP/PT are 1/4 on left leg. minimal pitting edema of the L leg and +1 pitting edema of the R leg. CFT < 3 seconds to all digits b/l. Skin temperature warm to warm from proximal to distal. Edema to both legs improved over yesterday. Neuro: Protective sensation grossly intact b/l Derm: 4 cm x 3 cm x 0.2 cm venous stasis ulceration noted to posterior left calf with fibrogranular base 50:50. No malodor, minimal serous drainage, no erythema, no tracking, tunneling or undermining, no other clinical signs of active bacterial infection. Approximately 0.5 x 0.5 x 0.2 cm venous stasis ulceration noted to lateral left malleoli with mostly fibrous base. No malodor, minimal serous drainage, no erythema, no tracking, tunneling or undermining, no other clinical signs of active bacterial infection. R LE noted to be erythematous, still edematous but the edema went down than yesterday with small serous fluid filled blisters noted. No open wounds noted. Ortho: Pain on palpation to ulceration sites. ROM WNL at all major joints. No gross deformities noted - Neurological Exam Neurological Exam: Alert, Awake, Oriented x3 - Psychiatric Exam Psychiatric exam: Normal Affect, Normal Mood - Skin Skin Exam: Dry Assessment and Plan - Assessment and Plan (Free Text) Assessment: 77 y/o M patient with clinically noninfected venous stasis ulcerations of left leg and venous congestion with weeping blisters of right leg Plan: Patient seen and evaluated Plan discussed with the attending, Dr. Jones Chart, labs and vitals reviewed; Afebrile Santyl applied to all wounds Both legs dressed with non adhesive dressing, ABD, DSD, kerlix, and JANNA for compression. Right venous duplex ordered to rule out DVT No podiatric surgical interventions at this time Podiatry will follow while in house
--- NOTE | 2018-03-19 10:40 | CP.PCM.PCO ---
Assessment and Plan - Assessment and Plan (Free Text) Assessment: Patient seen and examined With general debility, can benefit from physical therapy prior to dc home.
--- NOTE | 2018-03-19 11:01 | CP.PCM.PN ---
Subjective - Date & Time of Evaluation Date of Evaluation: 03/19/18 Time of Evaluation: 10:40 - Subjective Subjective: Denies significant dyspnoea during PT HR 70 BPM (a flutter) BP 126/70 mm Hg JVP not elevated Pedal oedema less pronounced Abd girth still Large (ascites++) Labs show mild increase in BUN (creatinin still unchanged) Electrolytes still normal Spoke with daughter (she is aware of father's dementia) Objective - Vital Signs/Intake and Output Vital Signs (last 24 hours): Temp Pulse Resp BP Pulse Ox 98 F 66 18 117/80 95 03/19/18 08:01 03/19/18 08:01 03/19/18 08:01 03/19/18 08:30 03/19/18 08:01 - Medications Medications: Current Medications Apixaban (Eliquis) 2.5 mg PO BID [facility] PRN Reason: Protocol Last Admin: 03/19/18 08:29 Dose: 2.5 mg Atorvastatin Calcium (Lipitor) 20 mg PO DAILY@2200 [facility] Last Admin: 03/18/18 21:43 Dose: 20 mg Furosemide (Lasix) 40 mg IV Q12 [facility] Last Admin: 03/19/18 08:30 Dose: 40 mg Insulin Detemir (Levemir) 5 units SC HS [facility] Last Admin: 03/18/18 22:00 Dose: 5 u Insulin Human Lispro (Humalog) 0 units SC ACHS [facility] PRN Reason: Protocol Last Admin: 03/19/18 06:57 Dose: Not Given Lactic Acid (Lac-Hydrin 12% Cream (140 G)) 1 ea TOP BID [facility] Last Admin: 03/19/18 08:31 Dose: 1 applic Potassium Chloride (K-Dur 20 Meq Er Tab) 20 meq PO DAILY [facility] Last Admin: 03/19/18 08:29 Dose: 20 meq Prednisone (Prednisone Tab) 5 mg PO DAILY [facility] Last Admin: 03/19/18 08:30 Dose: 5 mg Promethazine HCl/Dextromethorphan (Phenergan Dm Syrup) 10 ml PO Q6 PRN PRN Reason: Cough Last Admin: 03/19/18 02:40 Dose: 10 ml Sitagliptin Phosphate (Januvia) 50 mg PO DAILY [facility] Last Admin: 03/19/18 08:29 Dose: 50 mg Spironolactone (Aldactone) 50 mg PO BID [facility] Last Admin: 03/19/18 08:30 Dose: 50 mg - Labs Labs: 03/14/18 23:30 03/19/18 04:20
[2018-03-19] MEDS ORDERED: metOLazone 5 MG TAB PO ONE (11:02)
--- NOTE | 2018-03-19 11:33 | CP.PCM.PN ---
Subjective - Date & Time of Evaluation Date of Evaluation: 03/18/18 Time of Evaluation: 10:00 - Subjective Subjective: Patient remains stable Noted persistent leg edema Has no SOB No fever. Objective - Vital Signs/Intake and Output Vital Signs (last 24 hours): Temp Pulse Resp BP Pulse Ox 98 F 66 18 117/80 95 03/19/18 08:01 03/19/18 08:01 03/19/18 08:01 03/19/18 08:30 03/19/18 08:01 - Medications Medications: Current Medications Apixaban (Eliquis) 2.5 mg PO BID [facility] PRN Reason: Protocol Last Admin: 03/19/18 08:29 Dose: 2.5 mg Atorvastatin Calcium (Lipitor) 20 mg PO DAILY@2200 [facility] Last Admin: 03/18/18 21:43 Dose: 20 mg Furosemide (Lasix) 40 mg IV Q12 [facility] Last Admin: 03/19/18 08:30 Dose: 40 mg Insulin Detemir (Levemir) 5 units SC HS [facility] Last Admin: 03/18/18 22:00 Dose: 5 u Insulin Human Lispro (Humalog) 0 units SC ACHS [facility] PRN Reason: Protocol Last Admin: 03/19/18 06:57 Dose: Not Given Lactic Acid (Lac-Hydrin 12% Cream (140 G)) 1 ea TOP BID [facility] Last Admin: 03/19/18 08:31 Dose: 1 applic Potassium Chloride (K-Dur 20 Meq Er Tab) 20 meq PO DAILY [facility] Last Admin: 03/19/18 08:29 Dose: 20 meq Prednisone (Prednisone Tab) 5 mg PO DAILY [facility] Last Admin: 03/19/18 08:30 Dose: 5 mg Promethazine HCl/Dextromethorphan (Phenergan Dm Syrup) 10 ml PO Q6 PRN PRN Reason: Cough Last Admin: 03/19/18 02:40 Dose: 10 ml Sitagliptin Phosphate (Januvia) 50 mg PO DAILY [facility] Last Admin: 03/19/18 08:29 Dose: 50 mg Spironolactone (Aldactone) 50 mg PO BID [facility] Last Admin: 03/19/18 08:30 Dose: 50 mg - Labs Labs: 03/14/18 23:30 03/19/18 04:20 - Eye Exam Eye Exam: Normal appearance - ENT Exam ENT Exam: Mucous Membranes Moist - Respiratory Exam Respiratory Exam: Clear to Ausculation Bilateral - Cardiovascular Exam Cardiovascular Exam: REGULAR RHYTHM - GI/Abdominal Exam GI & Abdominal Exam: Normal Bowel Sounds - Neurological Exam Neurological Exam: Awake Assessment and Plan (1) CHF exacerbation Status: Acute (2) Essential (primary) hypertension Status: Acute (3) Hyperglycemia Status: Acute (4) Right-sided heart failure Status: Acute (5) Arthritis Status: Acute (6) Atrial flutter Status: Acute - Assessment and Plan (Free Text) Plan: Con tmeds Cont tx Cont PT subacute rehab
--- NOTE | 2018-03-19 11:35 | CP.PCM.DIS ---
Provider - Provider Date of Admission: 03/15/18 08:43 Attending physician: Franc Alvarez MD Time Spent in preparation of Discharge (in minutes): 30 Diagnosis - Discharge Diagnosis (1) CHF exacerbation Status: Acute (2) Essential (primary) hypertension Status: Acute (3) Hyperglycemia Status: Acute (4) Right-sided heart failure Status: Acute (5) Arthritis Status: Acute (6) Atrial flutter Status: Acute Hospital Course - Lab Results Lab Results: Most Recent Lab Values WBC 10.4 K/uL (4.8-10.8) 03/14/18 23:30 RBC 3.94 Mil/uL (4.40-5.90) L 03/14/18 23:30 Hgb 13.0 g/dL (12.0-18.0) 03/14/18 23:30 Hct 37.8 % (35.0-51.0) 03/14/18 23:30 MCV 95.9 fl (80.0-94.0) H 03/14/18 23:30 MCH 33.1 pg (27.0-31.0) H 03/14/18 23:30 MCHC 34.5 g/dL (33.0-37.0) 03/14/18 23:30 RDW 16.2 % (11.5-14.5) H 03/14/18 23:30 Plt Count 157 K/uL (130-400) 03/14/18 23:30 MPV 10.4 fl (7.2-11.7) 03/14/18 23:30 Neut % (Auto) 87.4 % (50.0-75.0) H 03/14/18 23:30 Lymph % (Auto) 6.9 % (20.0-40.0) L 03/14/18 23:30 Chambers % (Auto) 3.2 % (0.0-10.0) 03/14/18 23:30 Eos % (Auto) 2.0 % (0.0-4.0) 03/14/18 23:30 Baso % (Auto) 0.5 % (0.0-2.0) 03/14/18 23:30 Neut # (Auto) 9.0 K/uL (1.8-7.0) H 03/14/18 23:30 Lymph # (Auto) 0.7 K/uL (1.0-4.3) L 03/14/18 23:30 Chambers # (Auto) 0.3 K/uL (0.0-0.8) 03/14/18 23:30 Eos # (Auto) 0.2 K/uL (0.0-0.7) 03/14/18 23:30 Baso # (Auto) 0.1 K/uL (0.0-0.2) 03/14/18 23:30 Neutrophils % (Manual) 84 % (42-75) H 03/14/18 23:30 Band Neutrophils % 1 % (0-2) 03/14/18 23:30 Lymphocytes % (Manual) 6 % (20-50) L 03/14/18 23:30 Monocytes % (Manual) 7 % (0-10) 03/14/18 23:30 Eosinophils % (Manual) 1 % (0-7) 03/14/18 23:30 Metamyelocytes % 1 % (0-0) H 03/14/18 23:30 Platelet Estimate Normal (NORMAL) 03/14/18 23:30 Poikilocytosis (manual Slight 03/14/18 23:30 Anisocytosis (manual) Slight 03/14/18 23:30 Tear Drop Cells Slight 03/14/18 23:30 Ovalocytes Slight 03/14/18 23:30 ESR 59 mm/hr (0-20) H 03/18/18 04:20 Sodium 137 mmol/l (132-148) 03/19/18 04:20 Potassium 4.3 MMOL/L (3.6-5.0) 03/19/18 04:20 Chloride 98 mmol/L (98-107) 03/19/18 04:20 Carbon Dioxide 28 mmol/L (22-30) 03/19/18 04:20 Anion Gap 15 (10-20) 03/19/18 04:20 BUN 64 mg/dl (9-20) H 03/19/18 04:20 Creatinine 1.9 mg/dl (0.8-1.5) H 03/19/18 04:20 Est GFR ( Amer) 42 03/19/18 04:20 Est GFR (Non-Af Amer) 35 03/19/18 04:20 POC Glucose (mg/dL) 182 mg/dL (65-110) H 03/19/18 11:03 Random Glucose 99 mg/dL (75-110) 03/19/18 04:20 Hemoglobin A1c 8.2 % (4.2-6.5) H 03/18/18 04:20 Uric Acid 12.6 mg/Dl (3.5-8.5) H 03/18/18 04:20 Calcium 9.0 mg/dL (8.4-10.2) 03/19/18 04:20 Total Bilirubin 1.9 mg/dl (0.2-1.3) H 03/19/18 04:20 AST 56 U/L (17-59) 03/19/18 04:20 ALT 58 U/L (21-72) 03/19/18 04:20 Alkaline Phosphatase 280 U/L (38-126) H 03/19/18 04:20 Troponin I 0.6450 ng/mL (0.00-0.120) H* 03/15/18 17:00 NT-Pro-B Natriuret Pep 58563 pg/ml (0-900) H 03/16/18 10:23 Total Protein 6.6 G/DL (6.3-8.2) 03/19/18 04:20 Albumin 3.2 g/dL (3.5-5.0) L 03/19/18 04:20 Globulin 3.4 gm/dL (2.2-3.9) 03/19/18 04:20 Albumin/Globulin Ratio 0.9 (1.0-2.1) L 03/19/18 04:20 Triglycerides 83 mg/DL (0-149) 03/18/18 04:20 Cholesterol 124 mg/dL (0-199) 03/18/18 04:20 LDL Cholesterol Direct 62 mg/dL (0-129) 03/18/18 04:20 HDL Cholesterol 34 MG/DL (30-70) 03/18/18 04:20 Thyroxine (T4) 5.25 ug/dl (5.5-11.0) L 03/18/18 04:20 Total T3 0.568 nmol/L (1.49-2.60) L 03/18/18 04:20 TSH 3rd Generation 3.14 mIU/ML (0.46-4.68) 03/18/18 04:20 - Hospital Course Hospital Course: This is a 77 y/o male admitted for CHF. Presented with leg edema. ECHO showed right sided failure pulm HTN and EF 45 %. He was started cautiously on Lasix and aldactone. Dr Bal saw and patient He was kept on Eliquis. Discharge Exam - Head Exam Head Exam: ATRAUMATIC, NORMOCEPHALIC - Eye Exam Eye Exam: Normal appearance - Respiratory Exam Respiratory Exam: NORMAL BREATHING PATTERN - Cardiovascular Exam Cardiovascular Exam: REGULAR RHYTHM - GI/Abdominal Exam GI & Abdominal Exam: Normal Bowel Sounds - Neurological Exam Neurological exam: CN II-XII Intact Additional comments: noted memory loss Discharge Plan - Follow Up Plan Condition: FAIR Disposition: HOME/ ROUTINE Instructions: Heart Failure, Adult (DC) Additional Instructions: discharge to TCU will do dementia work up in tcu cont PT Referrals: Robbie Jones DPM [Medical Doctor] - Juan Bal MD [Staff Provider] - Mai Prieto [Family Provider] -
[2018-03-19 12:28] VITALS: O2SAT 98
--- NOTE | 2018-03-19 13:14 | US ---
PROCEDURE: Right lower extremity venous duplex Doppler. HISTORY: r/o DVT COMPARISON: None available. TECHNIQUE: Common femoral, superficial femoral, popliteal and posterior tibial veins were evaluated. Flow was assessed with color Doppler, compressibility, assessment of phasic flow and augmentation response. FINDINGS: COMMON FEMORAL VEIN: Unremarkable. SUPERFICIAL FEMORAL VEIN: Unremarkable. POPLITEAL VEIN: Unremarkable. POSTERIOR TIBIAL VEIN: Not examined due to overlying bandaging. OTHER FINDINGS: Incidental note is made of heterogeneous echogenicity structure in the popliteal fossa separate from the vascular sheath measuring 5.1 x 1.1 cm history reflecting complex popliteal cyst. Prominent subcutaneous edema seen in the thigh suggestive of cellulitis and clinical correlation is recommended. Mild inferior inguinal lymphadenopathy including 2.3 x 1.8 cm lymph node. IMPRESSION: No evidence of deep venous thrombosis in the right lower extremity. Post vertebral vein below the right knee could not be imaged due to bandaging and a moderate size possible complex popliteal cyst is identified in the popliteal fossa separate from the vascular sheath. This can be further imaged by MRI of right knee on an elective basis. Thigh cellulitis suggested, clinically correlate further. Mild inferior left inguinal lymphadenopathy.
[2018-03-19 16:30] VITALS: BP 124/83; PULSE 80; RESP 20; TEMP 98.1
== END 2018-03-19 16:55 | DRG 291 ==
LOC: H.ER 22:22 → H.ERHOLD 03-15 00:04 → H.TEL 03-15 03:00 → OBSVTOIN 03-15 08:43 → H.TEL 03-16 12:40
PROVIDERS: ADMIT Family Medicine; ATTEND Family Medicine
DX: I13.0 Hypertensive heart and chronic kidney disease with heart failure and stage 1 through stage 4 chronic kidney disease, or unspecified chronic kidney disease (principal); I50.23 Acute on chronic systolic (congestive) heart failure; I48.92 Unspecified atrial flutter; R18.8 Other ascites; L97.229 Non-pressure chronic ulcer of left calf with unspecified severity; E11.22 Type 2 diabetes mellitus with diabetic chronic kidney disease; E11.65 Type 2 diabetes mellitus with hyperglycemia; E78.00 Pure hypercholesterolemia, unspecified; I07.1 Rheumatic tricuspid insufficiency; M19.90 Unspecified osteoarthritis, unspecified site; Z79.01 Long term (current) use of anticoagulants; I25.10 Atherosclerotic heart disease of native coronary artery without angina pectoris; Z95.5 Presence of coronary angioplasty implant and graft; I87.8 Other specified disorders of veins; S80.821A Blister (nonthermal), right lower leg, initial encounter; E11.51 Type 2 diabetes mellitus with diabetic peripheral angiopathy without gangrene; R53.81 Other malaise; I27.20 Pulmonary hypertension, unspecified; N18.2 Chronic kidney disease, stage 2 (mild); R74.8 Abnormal levels of other serum enzymes

== ENCOUNTER 2018-03-19 13:39 | Inpatient (IN) | payer OTHER ==
[2018-03-19 17:33] VITALS: BMI 29.5
[2018-03-19] MEDS: Insulin Detemir 100 Units/ml Inj SC SCH (21:38)
[2018-03-19] MEDS: Promethazine DM 12.5 mg-30 mg/10 ml Syrup PO PRN (21:42)
[2018-03-19] MEDS: Insulin Lispro (humaLOG) 100 Units/ml Inj SC SCH (23:44)
[2018-03-20 06:16] LABS: HEMOGLOBIN 12.8 g/dL (12.0-18.0); MEAN CELL VOLUME 97.1 fl (80.0-94.0); MEAN CORPUSCULAR HEMOGLOBIN 32.6 pg (27.0-31.0); MEAN CORPUSCULAR HGB CONC 33.6 g/dL (33.0-37.0); RBC 3.91 Mil/uL (4.40-5.90); RED CELL DISTRIBUTION WIDTH 17.1 % (11.5-14.5); WHITE BLOOD COUNT 9.6 K/uL (4.8-10.8)
[2018-03-20 06:36] LABS: ALBUMIN 3.3 g/dL (3.5-5.0); CALCIUM 9.2 mg/dL (8.4-10.2)
[2018-03-20] MEDS: Insulin Lispro (humaLOG) 100 Units/ml Inj SC SCH ×4 (06:46→22:39)
--- NOTE | 2018-03-20 07:58 | CP.PCM.CON ---
History of Present Illness - History of Present Illness History of Present Illness: Podiatry progress note for Dr. Jones, 77YO male with PMHx of CHF, CAD, and HTN. Patient was in telemetry and is familiar to the podiatry team. Patient was seen and evaluated at bedside for left venous stasis ulcers, and b/l LW edema/blisters. Patient is seen resting comfortably in bed and is not in any acute distress. Patient denies any pain in his legs and states he has had venous duplex yesterday. Dressing is seen to be dry, clean and intact. Denies any overnight acut eevents. Denies N/V/F/C/SOB. Review of Systems - Review of Systems All systems: reviewed and no additional remarkable complaints except (per HPI) Past Patient History - Past Medical History & Family History Past Medical History?: Yes - Past Social History Smoking Status: Never Smoked - CARDIAC Hx Congestive Heart Failure: Yes Hx Hypertension: Yes - PULMONARY Hx Respiratory Disorders: No - NEUROLOGICAL Hx Neurological Disorder: No Hx Dementia: Yes - HEENT Hx HEENT Problems: Yes Hx Deafness: Yes (w/ hearing aid) - RENAL Hx Chronic Kidney Disease: No - ENDOCRINE/METABOLIC Hx Endocrine Disorders: No - HEMATOLOGICAL/ONCOLOGICAL Hx Blood Disorders: No - INTEGUMENTARY Hx Dermatological Problems: No - MUSCULOSKELETAL/RHEUMATOLOGICAL Hx Musculoskeletal Disorders: No Hx Falls: Yes - GASTROINTESTINAL Hx Gastrointestinal Disorders: No - GENITOURINARY/GYNECOLOGICAL Hx Genitourinary Disorders: No - PSYCHIATRIC Hx Psychophysiologic Disorder: No Hx Substance Use: No - SURGICAL HISTORY Hx Surgeries: Yes Hx Orthopedic Surgery: Yes (ankle and knee surgery) - ANESTHESIA Hx Anesthesia: Yes Hx Anesthesia Reactions: No Meds Allergies/Adverse Reactions: Allergies Allergy/AdvReac Type Severity Reaction Status Date / Time No Known Allergies Allergy Verified 03/14/18 22:45 - Medications Medications: Current Medications Apixaban (Eliquis) 2.5 mg PO BID [facility] PRN Reason: Protocol Atorvastatin Calcium (Lipitor) 20 mg PO HS [facility] Last Admin: 03/19/18 21:37 Dose: 20 mg Furosemide (Lasix) 40 mg IV Q12 [facility] Last Admin: 03/19/18 21:37 Dose: 40 mg Insulin Detemir (Levemir) 5 units SC HS [facility] Last Admin: 03/19/18 21:38 Dose: 5 u Insulin Human Lispro (Humalog) 0 units SC ACCU-CHECK [facility] PRN Reason: Protocol Last Admin: 03/20/18 06:46 Dose: Not Given Lactic Acid (Lac-Hydrin 12% Cream (140 G)) 1 ea TOP BID [facility] Potassium Chloride (K-Dur 20 Meq Er Tab) 20 meq PO DAILY [facility] Prednisone (Prednisone Tab) 5 mg PO DAILY [facility] Promethazine HCl/Dextromethorphan (Phenergan Dm Syrup) 10 ml PO Q6 [facility] PRN Reason: Cough Last Admin: 03/19/18 21:42 Dose: 10 ml Sitagliptin Phosphate (Januvia) 50 mg PO DAILY [facility] Spironolactone (Aldactone) 50 mg PO BID [facility] Physical Exam - Head Exam Head Exam: ATRAUMATIC, NORMOCEPHALIC - Extremities Exam Additional comments: Bilateral lower extremity: Vascular: DP/PT pulses are nonpalpable secondary to edema, CFT <3 secs x10, TG cool to cool, +2 pitting edema noted to dorsal aspect of the foot and ankle b/l Derm: Right- superficial ulceration noted to the lateral aspect of the midleg measuring approximately 1cm x 1cm. No malodor, erythema noted on dorsal aspect of leg from the tibial tuberosity to the ankle joint, no drainage, no purulence , no other open lesions noted. Left- Two ulcers noted: posterior aspect of the midleg measuring approximately 4 cm x 3 cm x 0.2cm , fibrogranular base, no malodor, no periwound erythema noted, no drainage, no purulence, no clinical signs of infection. anterior aspect of the lateral malleolus measuring approximately [id number], 100 % fibrotic base, no malodor, mild serous drainage, no purulence, no erythema noted, no clinical signs of infection. Neuro: Protective sensation grossly intact Ortho: Mild pain on palpation to the wounds, no gross deformities noted. - Neurological Exam Neurological exam: Alert, Oriented x3 - Psychiatric Exam Psychiatric exam: Normal Affect, Normal Mood - Skin Skin Exam: Erythema Results - Vital Signs Recent Vital Signs: Last Vital Signs Temp 98.2 F 03/19/18 21:41 Pulse 71 03/19/18 21:41 Resp 20 03/19/18 21:41 BP 109/70 03/19/18 21:41 Pulse Ox 92 L 03/19/18 21:41 - Labs Result Diagrams: 03/20/18 05:20 03/20/18 05:20 Labs: Laboratory Results - last 24 hr 03/19/18 03/20/18 03/20/18 21:15 05:20 05:20 WBC 9.6 RBC 3.91 L Hgb 12.8 Hct 38.0 MCV 97.1 H MCH 32.6 H MCHC 33.6 RDW 17.1 H Plt Count 198 Sodium 135 Potassium 4.2 Chloride 94 L Carbon Dioxide 33 H Anion Gap 12 BUN 63 H Creatinine 2.0 H Est GFR ( Amer) 39 Est GFR (Non-Af Amer) 33 POC Glucose (mg/dL) 153 H Random Glucose 85 Calcium 9.2 Total Bilirubin 1.8 H AST 56 ALT 56 Alkaline Phosphatase 278 H NT-Pro-B Natriuret Pep 22987 H Total Protein 6.6 Albumin 3.3 L Globulin 3.4 Albumin/Globulin Ratio 1.0 Vitamin B12 989 H TSH 3rd Generation 3.77 03/20/18 05:50 WBC RBC Hgb Hct MCV MCH MCHC RDW Plt Count Sodium Potassium Chloride Carbon Dioxide Anion Gap BUN Creatinine Est GFR ( Amer) Est GFR (Non-Af Amer) POC Glucose (mg/dL) 89 Random Glucose Calcium Total Bilirubin AST ALT Alkaline Phosphatase NT-Pro-B Natriuret Pep Total Protein Albumin Globulin Albumin/Globulin Ratio Vitamin B12 TSH 3rd Generation Assessment & Plan - Assessment and Plan (Free Text) Assessment: 77YO male seen for left venous stasis ulcers and bilatetal edema and blisters. Plan: Patient seen and evaluated Chart, labs, and vitals reviewed; Afebrile Patients plan discussed in detail with attending, Dr. Jones Dressed changed with santyl, adaptic, ABD pads, DSD, and JANNA Right lower extremity venous duplex shows no DVT. No podiatric surgical interventions at this time. Podiatry to follow patient while in house - Date & Time Date: 03/20/18 Time: 09:42
[2018-03-20] MEDS: Potassium Chloride 20 mEq ER Tab PO SCH (08:33)
[2018-03-20] MEDS: Ammonium Lactate 12% Cream (140 g) TOP SCH ×2 (08:34→16:48)
--- NOTE | 2018-03-20 11:51 | CP.PCM.CON ---
History of Present Illness - History of Present Illness History of Present Illness: this 77-year-old hypertensive man with diabetes mellitus who has severe right ventricular failure with severe tricuspid regurgitation and stable coronary artery disease following coronary stenting in December of 2015 who has had severe stasis ulcers on both lower extremities was recently hospitalized for worsening pedal edema and rapid weight gain.. He was recently discharged from a rehabilitation facility in [place] and was taken off of diuretics because he had hyponatremia and hypotension and was receiving 10 mg of prednisone because of persistent ulcers on his legs which were thought at one point to be possibly due to pyoderma gangrenosum. The patient has had a coronary angiogram last March when both the stents were found to be patent. The diagnosis of right ventricular failure was again established during this catheterization. The patient also has moderate degree of chronic kidney disease and the patient's daughter reports a recent decline in his cognitive functions. Physical examination shows an elderly man who appears mildly confused but answers questions fairly appropriately with a slight delay. He appears to be aware of his surroundings. Afebrile with a pulse rate of 70 beats per minutes irregular. The patient has had atrial flutter with varying AV conduction since his admission. His blood pressure was 120/82 mmHg. His jugular venous pressure was mildly elevated. o there was oedema up to his knees on both legs and severe ulcers particularly on his left lower extremity. There was a long systolic murmur in the left parasternal region fourths space. Abdomen was soft there was significant ascites noted in the abdomen. Patient's electrocardiogram and recent echocardiograms were noted. The patient had atrial flutter with variable AV conduction and a controlled heart rate. His echocardiogram revealed significant left ventricular hypertrophy with preserved systolic function on the left side with a dilated right ventricle and severe tricuspid regurgitation and an appearance of tricuspid valve suggestive of myxomatous change. His lab data was noted. Impression: right ventricular failure which is chronic. Stasis dermatitis and chronic ulcers over both lower extremities. Diabetes with hypertension and chronic kidney disease. Stable coronary artery disease with status post coronary stenting in December 2015. Peripheral arterial disease. Early dementia. The patient is being diuresed while his kidney function and electrolytes as well as his blood pressure was closely monitored. While receiving local diabetic along with Aldactone and Zaroxolyn the patient is diuresing well. I have recommended neurological evaluation particularly since the patient has recently moved from [place] and plans to stay with his daughter in [place]. Past Patient History - Past Medical History & Family History Past Medical History?: Yes - Past Social History Smoking Status: Never Smoked - CARDIAC Hx Congestive Heart Failure: Yes Hx Hypertension: Yes - PULMONARY Hx Respiratory Disorders: No - NEUROLOGICAL Hx Neurological Disorder: No Hx Dementia: Yes - HEENT Hx HEENT Problems: Yes Hx Deafness: Yes (w/ hearing aid) - RENAL Hx Chronic Kidney Disease: No - ENDOCRINE/METABOLIC Hx Endocrine Disorders: No - HEMATOLOGICAL/ONCOLOGICAL Hx Blood Disorders: No - INTEGUMENTARY Hx Dermatological Problems: No - MUSCULOSKELETAL/RHEUMATOLOGICAL Hx Musculoskeletal Disorders: No Hx Falls: Yes - GASTROINTESTINAL Hx Gastrointestinal Disorders: No - GENITOURINARY/GYNECOLOGICAL Hx Genitourinary Disorders: No - PSYCHIATRIC Hx Psychophysiologic Disorder: No Hx Substance Use: No - SURGICAL HISTORY Hx Surgeries: Yes Hx Orthopedic Surgery: Yes (ankle and knee surgery) - ANESTHESIA Hx Anesthesia: Yes Hx Anesthesia Reactions: No Meds Allergies/Adverse Reactions: Allergies Allergy/AdvReac Type Severity Reaction Status Date / Time No Known Allergies Allergy Verified 03/14/18 22:45 - Medications Medications: Current Medications Apixaban (Eliquis) 2.5 mg PO BID [facility] PRN Reason: Protocol Last Admin: 03/20/18 08:33 Dose: 2.5 mg Atorvastatin Calcium (Lipitor) 20 mg PO HS [facility] Last Admin: 03/19/18 21:37 Dose: 20 mg Furosemide (Lasix) 40 mg IV Q12 [facility] Last Admin: 03/20/18 08:34 Dose: 40 mg Insulin Detemir (Levemir) 5 units SC HS [facility] Last Admin: 03/19/18 21:38 Dose: 5 u Insulin Human Lispro (Humalog) 0 units SC ACCU-CHECK [facility] PRN Reason: Protocol Last Admin: 03/20/18 11:04 Dose: Not Given Lactic Acid (Lac-Hydrin 12% Cream (140 G)) 1 ea TOP BID [facility] Last Admin: 03/20/18 08:34 Dose: 1 applic Potassium Chloride (K-Dur 20 Meq Er Tab) 20 meq PO DAILY [facility] Last Admin: 03/20/18 08:33 Dose: 20 meq Prednisone (Prednisone Tab) 5 mg PO DAILY [facility] Last Admin: 03/20/18 08:34 Dose: 5 mg Promethazine HCl/Dextromethorphan (Phenergan Dm Syrup) 10 ml PO Q6 [facility] PRN Reason: Cough Last Admin: 03/19/18 21:42 Dose: 10 ml Sitagliptin Phosphate (Januvia) 50 mg PO DAILY [facility] Last Admin: 03/20/18 08:33 Dose: 50 mg Spironolactone (Aldactone) 50 mg PO BID [facility] Last Admin: 03/20/18 08:33 Dose: 50 mg Results - Vital Signs Recent Vital Signs: Last Vital Signs Temp 97.7 F 03/20/18 08:24 Pulse 71 03/20/18 08:24 Resp 20 03/20/18 08:24 BP 100/39 L 03/20/18 08:34 Pulse Ox 93 L 03/20/18 08:24 - Labs Result Diagrams: 03/20/18 05:20 03/20/18 05:20 Labs: Laboratory Results - last 24 hr 03/19/18 03/20/18 03/20/18 21:15 05:20 05:20 WBC 9.6 RBC 3.91 L Hgb 12.8 Hct 38.0 MCV 97.1 H MCH 32.6 H MCHC 33.6 RDW 17.1 H Plt Count 198 Sodium 135 Potassium 4.2 Chloride 94 L Carbon Dioxide 33 H Anion Gap 12 BUN 63 H Creatinine 2.0 H Est GFR ( Amer) 39 Est GFR (Non-Af Amer) 33 POC Glucose (mg/dL) 153 H Random Glucose 85 Calcium 9.2 Total Bilirubin 1.8 H AST 56 ALT 56 Alkaline Phosphatase 278 H NT-Pro-B Natriuret Pep 40689 H Total Protein 6.6 Albumin 3.3 L Globulin 3.4 Albumin/Globulin Ratio 1.0 Vitamin B12 989 H TSH 3rd Generation 3.77 03/20/18 03/20/18 05:50 10:49 WBC RBC Hgb Hct MCV MCH MCHC RDW Plt Count Sodium Potassium Chloride Carbon Dioxide Anion Gap BUN Creatinine Est GFR ( Amer) Est GFR (Non-Af Amer) POC Glucose (mg/dL) 89 107 Random Glucose Calcium Total Bilirubin AST ALT Alkaline Phosphatase NT-Pro-B Natriuret Pep Total Protein Albumin Globulin Albumin/Globulin Ratio Vitamin B12 TSH 3rd Generation
[2018-03-20] MEDS: metOLazone 5 MG TAB PO SCH (12:19)
--- NOTE | 2018-03-20 18:57 | CON ---
DATE: 03/20/2018 CHIEF COMPLAINT: Evaluate for dementia. HISTORY OF PRESENT ILLNESS: A 77-year-old pleasant man with past medical history of hypertension, type 2 diabetes mellitus with severe right ventricular heart failure with severe tricuspid regurgitation, severe coronary artery disease followed by carotid stenting in 12/2015, who had severe stasis ulcers on both lower extremities, who recently hospitalized for worsening pedal edema and rapid weight gain. He was recently discharged from a rehabilitation facility in [place] and was taken off diuretics because he was having hyponatremia and hypotension, and was receiving 10 mg of prednisone because of persistent ulcers on his legs and to a point where he was developing pyoderma gangrenosum. The patient had coronary angiogram in 03/2017, where his stents were patent. The patient was having some mild confusion in Rehabilitation and daughter has noticed some mild decrease in cognitive decline. During my evaluation today, his mini mental status examination is a score of 28/30. He is able to do proverbs. He knows the date, month, and year as well as the season, and is able to spell words backwards in terms of world. He can also calculate pretty well. He does read daily as well. PAST MEDICAL HISTORY: As above. SOCIAL HISTORY: No illicit drug abuse, smoking, or ETOH abuse. ALLERGIES: NO KNOWN DRUG ALLERGIES. MEDICATIONS: Reviewed by nurse reconciliation sheet. FAMILY HISTORY: Noncontributory. REVIEW OF SYSTEMS: A 14-point review of system is negative except for the HPI. LABORATORY DATA: Sodium is 135, potassium 4.2, chloride 94, carbon dioxide 33, BUN of 62, creatinine of , random glucose of 89. PHYSICAL EXAMINATION: VITAL SIGNS: Temperature of 97, pulse rate of 72, blood pressure 107/63, respiratory rate of 20, and oxygen saturation of 94% on room air. GENERAL: Sitting up in bed, in no acute distress. HEENT: Head is atraumatic and normocephalic. PERRLA. Extraocular muscles intact. NECK: Supple. No JVD. No adenopathy noted. HEART: Irregular rate and rhythm. No murmur, rubs, or gallops. ABDOMEN: Soft, nontender, nondistended. Bowel sounds are present. EXTREMITIES: No clubbing. Has few edema to his knees and legs and severe ulcers picking on his left lower extremity. NEUROLOGIC: The patient is alert and oriented to person and place, and does not know the date, but knows the year, knows the season. He is able to do proverbs, able to calculate and attention span and thought process is mildly slow, but judgment is fair. Mini mental status examination is 20/30. Speech is fluent without any errors. Cranial nerves II through XII intact. Motor exam: Moves all extremities equally. No atrophy seen. Sensory exam: Decreased light touch and pinprick up to the calves bilaterally. Decreased vibration at the toes. DTRs are 2+ throughout and 1 at both knees and absent at the ankles. Coordination: [id number] intact. No dysmetria noted. Gait is deferred for now. ASSESSMENT AND PLAN: This is a 77-year-old man with history of hypertensive disease, type 2 diabetes mellitus, severe right ventricular heart failure with severe tricuspid regurgitation, coronary artery disease status post stent, came in for likely congestive heart failure exacerbation and worsening pedal edema and lower extremity ulcers and following rehabilitation for his underlying deconditioning. His cardiac function was for underlying dementia. At this point, I feel like he has a very mild cognitive impairment rather than actual dementia itself, and mild cognitive impairment is from his underlying chronic medical conditions and has episodes of transient cerebral hypoperfusion to the brain while he has been in the hospital, which causing dullness of his attention span. RECOMMENDATIONS: At this time, we would recommend, 1. Attention and concentration exercises. 2. We will hold of on any disease modifying agents at this time, recommend attention and concentration exercises. 3. Monitor electrolytes and correct accordingly. 4. Keep his blood sugar between 140 to 180. 5. Avoid hypotensive episodes and keep his systolic blood pressure 120s to 130s and diastolic 70s to 80s. 6. Continue rehabilitation, physical therapy and occupational therapy will follow up with him as an outpatient for further cognitive testing. Thank you for this consult. John Sal MD
[2018-03-20] MEDS: Promethazine DM 12.5 mg-30 mg/10 ml Syrup PO PRN (22:38)
[2018-03-20] MEDS: Insulin Detemir 100 Units/ml Inj SC SCH (22:38)
--- NOTE | 2018-03-21 00:29 | CP.PCM.HP ---
<Naina Schneider - Last Filed: 03/21/18 00:26> History of Present Illness - History of Present Illness History of Present Illness: 77 yr old M admitted to TCU for further PT/OT due to deconditioning. Patient was recently discharged from telemetry after treatment for CHF. Leg edema persists. Echocardiogram showed right sided failure pulm HTN and EF 45 %. Patient was started cautiously on Lasix and aldactone. Dr. Bal is on consult and has seen patient. He was kept on Eliquis. Present on Admission - Present on Admission Any Indicators Present on Admission: No History of DVT/PE: No History of Uncontrolled Diabetes: Yes Urinary Catheter: No Decubitus Ulcer Present: No History Surgical Site Infection Following: None Review of Systems - Constitutional Constitutional: Weakness. absent: Night Sweats - EENT Eyes: absent: Change in Vision Nose/Mouth/Throat: absent: Sore Throat - Cardiovascular Cardiovascular: absent: Chest Pain, Dyspnea - Respiratory Respiratory: absent: Cough, Hemoptysis - Gastrointestinal Gastrointestinal: Diarrhea. absent: Abdominal Pain, Hematemesis, Nausea, Vomiting - Genitourinary Genitourinary: absent: Difficulty Urinating, Dysuria - Musculoskeletal Musculoskeletal: absent: Numbness Additional comments: bilateral LE pitting edema +3 distal -up to proximal femur - Neurological Neurological: absent: Syncope - Psychiatric Psychiatric: absent: Anxiety - Endocrine Endocrine: absent: Palpitations, Polydipsia, Polyphagia - Hematologic/Lymphatic Hematologic: absent: Easy Bleeding, Easy Bruising Past Patient History - Past Medical History & Family History Past Medical History?: Yes - Past Social History Smoking Status: Never Smoked - CARDIAC Hx Congestive Heart Failure: Yes Hx Hypertension: Yes - PULMONARY Hx Respiratory Disorders: No - NEUROLOGICAL Hx Neurological Disorder: No Hx Dementia: Yes - HEENT Hx HEENT Problems: Yes Hx Deafness: Yes (w/ hearing aid) - RENAL Hx Chronic Kidney Disease: No - ENDOCRINE/METABOLIC Hx Endocrine Disorders: No - HEMATOLOGICAL/ONCOLOGICAL Hx Blood Disorders: No - INTEGUMENTARY Hx Dermatological Problems: No - MUSCULOSKELETAL/RHEUMATOLOGICAL Hx Musculoskeletal Disorders: No Hx Falls: Yes - GASTROINTESTINAL Hx Gastrointestinal Disorders: No - GENITOURINARY/GYNECOLOGICAL Hx Genitourinary Disorders: No - PSYCHIATRIC Hx Psychophysiologic Disorder: No Hx Substance Use: No - SURGICAL HISTORY Hx Surgeries: Yes Hx Orthopedic Surgery: Yes (ankle and knee surgery) - ANESTHESIA Hx Anesthesia: Yes Hx Anesthesia Reactions: No Meds Allergies/Adverse Reactions: Allergies Allergy/AdvReac Type Severity Reaction Status Date / Time No Known Allergies Allergy Verified 03/14/18 22:45 Physical Exam - Constitutional Appears: No Acute Distress - Head Exam Head Exam: ATRAUMATIC, NORMOCEPHALIC - Eye Exam Eye Exam: EOMI, PERRL - ENT Exam ENT Exam: Mucous Membranes Moist - Neck Exam Neck exam: Positive for: Full Rom. Negative for: Lymphadenopathy - Respiratory Exam Respiratory Exam: NORMAL BREATHING PATTERN - Cardiovascular Exam Cardiovascular Exam: REGULAR RHYTHM - GI/Abdominal Exam GI & Abdominal Exam: Normal Bowel Sounds, Soft - Extremities Exam Extremities exam: Positive for: full ROM, pedal edema (pitting +3, bilateral distal up to proximal femur) - Psychiatric Exam Psychiatric exam: Normal Affect, Normal Mood - Skin Skin Exam: Dry, Warm Results - Vital Signs Recent Vital Signs: Last Vital Signs Temp 97.9 F 03/20/18 20:04 Pulse 78 03/20/18 20:04 Resp 20 03/20/18 20:04 BP 130/77 03/20/18 21:39 Pulse Ox 96 03/20/18 20:04 - Labs Result Diagrams: 03/20/18 05:20 03/20/18 05:20 Labs: Laboratory Results - last 24 hr 03/20/18 03/20/18 03/20/18 05:20 05:20 05:50 WBC 9.6 RBC 3.91 L Hgb 12.8 Hct 38.0 MCV 97.1 H MCH 32.6 H MCHC 33.6 RDW 17.1 H Plt Count 198 Sodium 135 Potassium 4.2 Chloride 94 L Carbon Dioxide 33 H Anion Gap 12 BUN 63 H Creatinine 2.0 H Est GFR ( Amer) 39 Est GFR (Non-Af Amer) 33 POC Glucose (mg/dL) 89 Random Glucose 85 Calcium 9.2 Total Bilirubin 1.8 H AST 56 ALT 56 Alkaline Phosphatase 278 H NT-Pro-B Natriuret Pep 65710 H Total Protein 6.6 Albumin 3.3 L Globulin 3.4 Albumin/Globulin Ratio 1.0 Vitamin B12 989 H TSH 3rd Generation 3.77 03/20/18 03/20/18 10:49 16:19 WBC RBC Hgb Hct MCV MCH MCHC RDW Plt Count Sodium Potassium Chloride Carbon Dioxide Anion Gap BUN Creatinine Est GFR ( Amer) Est GFR (Non-Af Amer) POC Glucose (mg/dL) 107 136 H Random Glucose Calcium Total Bilirubin AST ALT Alkaline Phosphatase NT-Pro-B Natriuret Pep Total Protein Albumin Globulin Albumin/Globulin Ratio Vitamin B12 TSH 3rd Generation Assessment & Plan - Assessment and Plan (Free Text) Assessment: 77 yr old M admitted to TCU for further PT/OT due to deconditioning. Patient was recently discharged from telemetry after treatment for CHF. Leg edema persists. PMHx includes HTN, recently dx DM type 2, severe right ventricular seen on echocardiogram: right sided failure pulm HTN and EF 45 %. Plan: -cardiology on board -fluid restriction to 1200 cc -daily weights -lasix PO -PT/OT -podiatry consult appreciated -neurology consult appreciated -heart healthy diet - Date & Time Date: 03/20/18 Time: 10:45 <Franc Alvarez - Last Filed: 03/22/18 22:32> Results - Vital Signs Recent Vital Signs: Last Vital Signs Temp 97.9 F 03/22/18 20:08 Pulse 68 03/22/18 20:08 Resp 20 03/22/18 20:08 BP 115/55 L 03/22/18 20:08 Pulse Ox 96 03/22/18 20:08 - Labs Result Diagrams: 03/20/18 05:20 03/22/18 05:30 Labs: Laboratory Results - last 24 hr 03/22/18 03/22/18 03/22/18 05:30 06:46 10:39 Sodium 139 Potassium 4.5 Chloride 97 L Carbon Dioxide 34 H Anion Gap 13 BUN 68 H Creatinine 2.2 H Est GFR ( Amer) 35 Est GFR (Non-Af Amer) 29 POC Glucose (mg/dL) 74 113 H Random Glucose 78 Calcium 8.8 Total Bilirubin 1.7 H AST 57 ALT 46 Alkaline Phosphatase 245 H Total Protein 6.0 L Albumin 3.0 L Globulin 3.0 Albumin/Globulin Ratio 1.0 03/22/18 03/22/18 16:21 21:15 Sodium Potassium Chloride Carbon Dioxide Anion Gap BUN Creatinine Est GFR ( Amer) Est GFR (Non-Af Amer) POC Glucose (mg/dL) 137 H 153 H Random Glucose Calcium Total Bilirubin AST ALT Alkaline Phosphatase Total Protein Albumin Globulin Albumin/Globulin Ratio Assessment & Plan - Assessment and Plan (Free Text) Plan: I was present during evaluation and discussed with Dr Schneider re plans of care and mgt. Franc Alvarez M.D.
[2018-03-21] MEDS: Insulin Lispro (humaLOG) 100 Units/ml Inj SC SCH ×4 (07:45→22:01)
[2018-03-21] MEDS: Ammonium Lactate 12% Cream (140 g) TOP SCH ×2 (08:29→17:11)
[2018-03-21] MEDS: Potassium Chloride 20 mEq ER Tab PO SCH (08:29)
[2018-03-21] MEDS: metOLazone 5 MG TAB PO SCH (08:30)
--- NOTE | 2018-03-21 08:40 | CP.PCM.PN ---
Subjective - Date & Time of Evaluation Date of Evaluation: 03/21/18 Time of Evaluation: 08:25 - Subjective Subjective: Has lost 6 lbs over last 24 hrs (183 to 176 lbs) BP 120/70 mm Hg JVP flat, pedal oedema less No rales Renal function and Na+/K+ stable Present Rx to continue Objective - Vital Signs/Intake and Output Vital Signs (last 24 hours): Temp Pulse Resp BP Pulse Ox 97.9 F 78 18 139/66 98 03/21/18 08:09 03/21/18 08:09 03/21/18 08:09 03/21/18 08:33 03/21/18 08:09 - Medications Medications: Current Medications Apixaban (Eliquis) 2.5 mg PO BID [facility] PRN Reason: Protocol Last Admin: 03/21/18 08:27 Dose: 2.5 mg Atorvastatin Calcium (Lipitor) 20 mg PO HS [facility] Last Admin: 03/20/18 21:38 Dose: 20 mg Furosemide (Lasix) 60 mg PO DAILY [facility] Last Admin: 03/21/18 08:33 Dose: 60 mg Insulin Detemir (Levemir) 5 units SC [facility] Last Admin: 03/20/18 22:38 Dose: 5 u Insulin Human Lispro (Humalog) 0 units SC ACCU-CHECK [facility] PRN Reason: Protocol Last Admin: 03/21/18 07:45 Dose: Not Given Lactic Acid (Lac-Hydrin 12% Cream (140 G)) 1 ea TOP BID [facility] Last Admin: 03/21/18 08:29 Dose: 1 applic Metolazone (Zaroxolyn) 5 mg PO DAILY [facility] Last Admin: 03/21/18 08:30 Dose: 5 mg Potassium Chloride (K-Dur 20 Meq Er Tab) 20 meq PO DAILY [facility] Last Admin: 03/21/18 08:29 Dose: 20 meq Prednisone (Prednisone Tab) 5 mg PO DAILY [facility] Last Admin: 03/21/18 08:29 Dose: 5 mg Promethazine HCl/Dextromethorphan (Phenergan Dm Syrup) 10 ml PO Q6 PRN PRN Reason: Cough Last Admin: 03/20/18 22:38 Dose: 10 ml Sitagliptin Phosphate (Januvia) 50 mg PO DAILY [facility] Last Admin: 03/21/18 08:28 Dose: 50 mg Spironolactone (Aldactone) 50 mg PO BID [facility] Last Admin: 03/21/18 08:28 Dose: 50 mg - Labs Labs: 03/20/18 05:20 03/20/18 05:20
--- NOTE | 2018-03-21 15:23 | CP.PCM.PN ---
Subjective - Date & Time of Evaluation Date of Evaluation: 03/21/18 Time of Evaluation: 15:21 - Subjective Subjective: Podiatry progress note for Dr. Jones, 77YO male was seen at bedside for left venous stasis ulcers, and b/l LE edema/ blisters. Patient is seen resting comfortably in bed and is not in any acute distress. AAO x3. Patient denies any pain in his legs. Dressing is seen to be dry, clean and intact. Denies any overnight acute events. Denies N/V/F/C/SOB. Objective - Vital Signs/Intake and Output Vital Signs (last 24 hours): Temp Pulse Resp BP Pulse Ox 97.9 F 78 18 139/66 98 03/21/18 08:09 03/21/18 08:09 03/21/18 08:09 03/21/18 08:33 03/21/18 08:09 - Medications Medications: Current Medications Apixaban (Eliquis) 2.5 mg PO BID [facility] PRN Reason: Protocol Last Admin: 03/21/18 08:27 Dose: 2.5 mg Atorvastatin Calcium (Lipitor) 20 mg PO HS [facility] Last Admin: 03/20/18 21:38 Dose: 20 mg Donepezil HCl (Aricept) 5 mg PO HS [facility] Furosemide (Lasix) 60 mg PO DAILY [facility] Last Admin: 03/21/18 08:33 Dose: 60 mg Insulin Detemir (Levemir) 5 units SC HS [facility] Last Admin: 03/20/18 22:38 Dose: 5 u Insulin Human Lispro (Humalog) 0 units SC ACCU-CHECK [facility] PRN Reason: Protocol Last Admin: 03/21/18 12:48 Dose: Not Given Lactic Acid (Lac-Hydrin 12% Cream (140 G)) 1 ea TOP BID [facility] Last Admin: 03/21/18 08:29 Dose: 1 applic Metolazone (Zaroxolyn) 5 mg PO DAILY [facility] Last Admin: 03/21/18 08:30 Dose: 5 mg Potassium Chloride (K-Dur 20 Meq Er Tab) 20 meq PO DAILY [facility] Last Admin: 03/21/18 08:29 Dose: 20 meq Prednisone (Prednisone Tab) 5 mg PO DAILY [facility] Last Admin: 03/21/18 08:29 Dose: 5 mg Promethazine HCl/Dextromethorphan (Phenergan Dm Syrup) 10 ml PO Q6 PRN PRN Reason: Cough Last Admin: 03/20/18 22:38 Dose: 10 ml Sitagliptin Phosphate (Januvia) 50 mg PO DAILY [facility] Last Admin: 03/21/18 08:28 Dose: 50 mg Spironolactone (Aldactone) 50 mg PO BID [facility] Last Admin: 03/21/18 08:28 Dose: 50 mg - Labs Labs: 03/20/18 05:20 03/20/18 05:20 - Constitutional Appears: Well, Non-toxic - Head Exam Head Exam: ATRAUMATIC, NORMOCEPHALIC - Extremities Exam Additional comments: Bilateral lower extremity: Vascular: DP/PT pulses nonpalpable secondary to edema, CFT <3 secs x10, TG cool to cool, +2 pitting edema noted to dorsal aspect of the foot and ankle b/l Derm: Right- superficial ulceration noted to the lateral aspect of the midleg measuring approximately 1cm x 1cm. No malodor, erythema noted on dorsal aspect of leg from the tibial tuberosity to the ankle joint, no drainage, no purulence , no other open lesions noted. Left- Two ulcers noted: posterior aspect of the midleg measuring approximately 4 cm x 3 cm x 0.2cm , fibrogranular base, no malodor, no periwound erythema noted, no drainage, no purulence, no clinical signs of infection. anterior aspect of the lateral malleolus measuring approximately [id number], 100 % fibrotic base, no malodor, mild serous drainage, no purulence, no erythema noted, no clinical signs of infection. Neuro: Protective sensation grossly intact Ortho: Mild pain on palpation to the wounds, no gross deformities noted. - Neurological Exam Neurological Exam: Alert, Awake, Oriented x3 - Psychiatric Exam Psychiatric exam: Normal Affect, Normal Mood Assessment and Plan - Assessment and Plan (Free Text) Assessment: 77YO male with left venous stasis ulcers and bilatetal edema and blisters. Plan: Patient seen and evaluated Chart, labs, and vitals reviewed; Afebrile Patients plan discussed in detail with attending, Dr. Jones Dressed changed with santyl, adaptic, ABD pads, DSD, and JANNA No podiatric surgical interventions at this time. Podiatry to follow patient while in house
[2018-03-21 15:59] VITALS: RESP 20
[2018-03-21] MEDS: Promethazine DM 12.5 mg-30 mg/10 ml Syrup PO PRN (21:55)
[2018-03-21] MEDS: Insulin Detemir 100 Units/ml Inj SC SCH (22:01)
[2018-03-22] MEDS: Insulin Lispro (humaLOG) 100 Units/ml Inj SC SCH ×4 (07:04→23:21)
[2018-03-22 07:30] LABS: CALCIUM 8.8 mg/dL (8.4-10.2)
[2018-03-22] MEDS: Potassium Chloride 20 mEq ER Tab PO SCH ×2 (08:42→21:02)
[2018-03-22] MEDS: Santyl Collagenase OINTMENT TOP SCH (08:44)
[2018-03-22] MEDS: metOLazone 5 MG TAB PO SCH (08:46)
[2018-03-22] MEDS: Ammonium Lactate 12% Cream (140 g) TOP SCH ×2 (08:48→17:30)
--- NOTE | 2018-03-22 11:59 | CP.PCM.PN ---
Subjective - Date & Time of Evaluation Date of Evaluation: 03/22/18 Time of Evaluation: 11:00 - Subjective Subjective: Has been diuresing with Lasix+ Aldactone+ Zaroxolyn Pedal oedema is less JVP much lower and Abd distension less (weight now 174 Lbs, 2lbs less than yesterday) BP 120/ 74 mm Hg No rales Syst murmur of Tr at Lt parasternal area+ Labs show gradual increase in creatinin to 2.2 mg with dropping GFR (now 29 ml/min) due to diuresis Venous ultrasound shows DVT in RT leg (an old finding as noted in notes from [place]) Pt was tapered down to prednisone of 5 mg (D/Chong it now) Pt also taken off of Zaroxolyn Objective - Vital Signs/Intake and Output Vital Signs (last 24 hours): Temp Pulse Resp BP Pulse Ox 97.8 F 63 20 110/56 L 99 03/22/18 08:16 03/22/18 08:16 03/22/18 08:16 03/22/18 08:46 03/22/18 08:16 - Medications Medications: Current Medications Apixaban (Eliquis) 2.5 mg PO BID [facility] PRN Reason: Protocol Last Admin: 03/22/18 08:43 Dose: 2.5 mg Atorvastatin Calcium (Lipitor) 20 mg PO HS [facility] Last Admin: 03/21/18 21:40 Dose: 20 mg Collagenase (Santyl) 1 applic TOP DAILY [facility] Last Admin: 03/22/18 08:44 Dose: 1 appful Donepezil HCl (Aricept) 5 mg PO HS [facility] Last Admin: 03/21/18 21:40 Dose: 5 mg Famotidine (Pepcid) 20 mg PO DAILY [facility] Last Admin: 03/22/18 08:46 Dose: 20 mg Furosemide (Lasix) 40 mg PO BID [facility] Last Admin: 03/22/18 08:46 Dose: 40 mg Insulin Detemir (Levemir) 5 units SC HS [facility] Last Admin: 03/21/18 22:01 Dose: 5 u Insulin Human Lispro (Humalog) 0 units SC ACCU-CHECK [facility] PRN Reason: Protocol Last Admin: 03/22/18 07:04 Dose: Not Given Lactic Acid (Lac-Hydrin 12% Cream (140 G)) 1 ea TOP BID [facility] Last Admin: 03/22/18 08:48 Dose: 1 applic Potassium Chloride (K-Dur 20 Meq Er Tab) 20 meq PO Q12 [facility] Last Admin: 03/22/18 08:42 Dose: 20 meq Promethazine HCl/Dextromethorphan (Phenergan Dm Syrup) 10 ml PO Q6 PRN PRN Reason: Cough Last Admin: 03/21/18 21:55 Dose: 10 ml Sitagliptin Phosphate (Januvia) 50 mg PO DAILY [facility] Last Admin: 03/22/18 08:46 Dose: 50 mg Spironolactone (Aldactone) 50 mg PO BID [facility] Last Admin: 03/22/18 08:45 Dose: 50 mg - Labs Labs: 03/20/18 05:20 03/22/18 05:30
--- NOTE | 2018-03-22 12:27 | CP.PCM.PN ---
Subjective - Date & Time of Evaluation Date of Evaluation: 03/22/18 Time of Evaluation: 12:24 - Subjective Subjective: Podiatry progress note for Dr. Jones, 77 y/o male was seen at bedside for left venous stasis ulcers, and b/l LE edema/ blisters. Patient is seen resting comfortably in bed and is not in any acute distress. AAO x3. Patient complains of minimal pain. Dressing is seen to be dry , clean and intact. Denies any overnight acute events. Denies N/V/F/C/SOB. Objective - Vital Signs/Intake and Output Vital Signs (last 24 hours): Temp Pulse Resp BP Pulse Ox 97.8 F 63 20 110/56 L 99 03/22/18 08:16 03/22/18 08:16 03/22/18 08:16 03/22/18 08:46 03/22/18 08:16 - Medications Medications: Current Medications Apixaban (Eliquis) 2.5 mg PO BID [facility] PRN Reason: Protocol Last Admin: 03/22/18 08:43 Dose: 2.5 mg Atorvastatin Calcium (Lipitor) 20 mg PO HS [facility] Last Admin: 03/21/18 21:40 Dose: 20 mg Collagenase (Santyl) 1 applic TOP DAILY [facility] Last Admin: 03/22/18 08:44 Dose: 1 appful Donepezil HCl (Aricept) 5 mg PO HS [facility] Last Admin: 03/21/18 21:40 Dose: 5 mg Famotidine (Pepcid) 20 mg PO DAILY [facility] Last Admin: 03/22/18 08:46 Dose: 20 mg Furosemide (Lasix) 40 mg PO BID [facility] Last Admin: 03/22/18 08:46 Dose: 40 mg Insulin Detemir (Levemir) 5 units SC HS [facility] Last Admin: 03/21/18 22:01 Dose: 5 u Insulin Human Lispro (Humalog) 0 units SC ACCU-CHECK [facility] PRN Reason: Protocol Last Admin: 03/22/18 07:04 Dose: Not Given Lactic Acid (Lac-Hydrin 12% Cream (140 G)) 1 ea TOP BID [facility] Last Admin: 03/22/18 08:48 Dose: 1 applic Potassium Chloride (K-Dur 20 Meq Er Tab) 20 meq PO Q12 [facility] Last Admin: 03/22/18 08:42 Dose: 20 meq Promethazine HCl/Dextromethorphan (Phenergan Dm Syrup) 10 ml PO Q6 PRN PRN Reason: Cough Last Admin: 03/21/18 21:55 Dose: 10 ml Sitagliptin Phosphate (Januvia) 50 mg PO DAILY [facility] Last Admin: 03/22/18 08:46 Dose: 50 mg Spironolactone (Aldactone) 50 mg PO BID [facility] Last Admin: 03/22/18 08:45 Dose: 50 mg - Labs Labs: 03/20/18 05:20 03/22/18 05:30 - Constitutional Appears: Well, Non-toxic, No Acute Distress - Head Exam Head Exam: ATRAUMATIC, NORMOCEPHALIC - Extremities Exam Additional comments: Bilateral lower extremity: Vascular: DP/PT pulses nonpalpable secondary to edema, CFT <3 secs x10, TG cool to cool, improving, + pitting edema noted to dorsal aspect of the foot and ankle b/l Derm: Right- stable superficial ulceration noted to the lateral aspect of the midleg measuring approximately 1cm x 1cm. No malodor, erythema noted on dorsal aspect of leg from the tibial tuberosity to the ankle joint, no drainage, no purulence , no other open lesions noted. Left- Two stable ulcers noted: posterior aspect of the midleg measuring approximately 4 cm x 3 cm x 0.2cm , fibrogranular base, no malodor, no periwound erythema noted, no drainage, no purulence, no clinical signs of infection. anterior aspect of the lateral malleolus measuring approximately [id number], 100 % fibrotic base, no malodor, mild serous drainage, no purulence, no erythema noted, no clinical signs of infection. Neuro: Protective sensation grossly intact Ortho: Moderate pain on palpation to the wounds, no gross deformities noted. - Neurological Exam Neurological Exam: Alert, Awake, Oriented x3 - Psychiatric Exam Psychiatric exam: Normal Affect, Normal Mood Assessment and Plan - Assessment and Plan (Free Text) Assessment: 77 y/o male with left venous stasis ulcers and bilatetal edema and blisters. Plan: Patient seen and evaluated Patients plan discussed in detail with attending, Dr. Jones Chart, labs, and vitals reviewed; Afebrile Dressed changed with santyl, adaptic, ABD pads, DSD, and JANNA No podiatric surgical interventions at this time Podiatry to follow patient while in house
[2018-03-22] MEDS: Promethazine DM 12.5 mg-30 mg/10 ml Syrup PO PRN ×2 (14:36→21:29)
[2018-03-22] MEDS: Insulin Detemir 100 Units/ml Inj SC SCH (21:03)
--- NOTE | 2018-03-22 22:47 | CP.PCM.PN ---
Subjective - Date & Time of Evaluation Date of Evaluation: 03/21/18 Time of Evaluation: 11:00 - Subjective Subjective: Patient was noted to have increased swellign of both legs Noted swelling to be hard on palpation No recent US of lower ext. Has no SOB Objective - Vital Signs/Intake and Output Vital Signs (last 24 hours): Temp Pulse Resp BP Pulse Ox 97.9 F 68 20 115/55 L 96 03/22/18 20:08 03/22/18 20:08 03/22/18 20:08 03/22/18 20:08 03/22/18 20:08 Intake and Output: 03/22/18 03/23/18 18:59 06:59 Intake Total 750 Output Total 1250 Balance -500 - Medications Medications: Current Medications Apixaban (Eliquis) 2.5 mg PO BID [facility] PRN Reason: Protocol Last Admin: 03/22/18 17:27 Dose: 2.5 mg Atorvastatin Calcium (Lipitor) 20 mg PO HS [facility] Last Admin: 03/22/18 21:04 Dose: 20 mg Collagenase (Santyl) 1 applic TOP DAILY [facility] Last Admin: 03/22/18 08:44 Dose: 1 appful Donepezil HCl (Aricept) 5 mg PO HS [facility] Last Admin: 03/22/18 21:02 Dose: 5 mg Famotidine (Pepcid) 20 mg PO DAILY [facility] Last Admin: 03/22/18 08:46 Dose: 20 mg Furosemide (Lasix) 40 mg PO BID [facility] Last Admin: 03/22/18 17:28 Dose: 40 mg Insulin Detemir (Levemir) 5 units SC HS [facility] Last Admin: 03/22/18 21:03 Dose: 5 u Insulin Human Lispro (Humalog) 0 units SC ACCU-CHECK [facility] PRN Reason: Protocol Last Admin: 03/22/18 17:27 Dose: Not Given Lactic Acid (Lac-Hydrin 12% Cream (140 G)) 1 ea TOP BID [facility] Last Admin: 03/22/18 17:30 Dose: 1 applic Potassium Chloride (K-Dur 20 Meq Er Tab) 20 meq PO Q12 [facility] Last Admin: 03/22/18 21:02 Dose: 20 meq Promethazine HCl/Dextromethorphan (Phenergan Dm Syrup) 10 ml PO Q6 PRN PRN Reason: Cough Last Admin: 03/22/18 21:29 Dose: 10 ml Sitagliptin Phosphate (Januvia) 50 mg PO DAILY [facility] Last Admin: 03/22/18 08:46 Dose: 50 mg Spironolactone (Aldactone) 50 mg PO BID [facility] Last Admin: 03/22/18 17:27 Dose: 50 mg - Labs Labs: 03/20/18 05:20 03/22/18 05:30 - Head Exam Head Exam: NORMAL INSPECTION - Eye Exam Eye Exam: Normal appearance - Respiratory Exam Respiratory Exam: NORMAL BREATHING PATTERN - Cardiovascular Exam Cardiovascular Exam: REGULAR RHYTHM - GI/Abdominal Exam GI & Abdominal Exam: Normal Bowel Sounds - Neurological Exam Neurological Exam: Awake, Oriented x3 Assessment and Plan (1) Atrial flutter Status: Acute (2) CHF exacerbation Status: Acute (3) Essential (primary) hypertension Status: Acute (4) Right-sided heart failure Status: Acute - Assessment and Plan (Free Text) Plan: Cont meds Con ttx check venous doppler lower ext Con tPT
--- NOTE | 2018-03-22 22:50 | CP.PCM.PN ---
Subjective - Date & Time of Evaluation Date of Evaluation: 03/22/18 Time of Evaluation: 10:40 - Subjective Subjective: Patient remains well Noted DVT left lower ext On eliquis 2.5 bid Has no chest pain Has no SOB. Objective - Vital Signs/Intake and Output Vital Signs (last 24 hours): Temp Pulse Resp BP Pulse Ox 97.9 F 68 20 115/55 L 96 03/22/18 20:08 03/22/18 20:08 03/22/18 20:08 03/22/18 20:08 03/22/18 20:08 Intake and Output: 03/22/18 03/23/18 18:59 06:59 Intake Total 750 Output Total 1250 Balance -500 - Medications Medications: Current Medications Apixaban (Eliquis) 2.5 mg PO BID [facility] PRN Reason: Protocol Last Admin: 03/22/18 17:27 Dose: 2.5 mg Atorvastatin Calcium (Lipitor) 20 mg PO HS [facility] Last Admin: 03/22/18 21:04 Dose: 20 mg Collagenase (Santyl) 1 applic TOP DAILY [facility] Last Admin: 03/22/18 08:44 Dose: 1 appful Donepezil HCl (Aricept) 5 mg PO HS [facility] Last Admin: 03/22/18 21:02 Dose: 5 mg Famotidine (Pepcid) 20 mg PO DAILY [facility] Last Admin: 03/22/18 08:46 Dose: 20 mg Furosemide (Lasix) 40 mg PO BID [facility] Last Admin: 03/22/18 17:28 Dose: 40 mg Insulin Detemir (Levemir) 5 units SC HS [facility] Last Admin: 03/22/18 21:03 Dose: 5 u Insulin Human Lispro (Humalog) 0 units SC ACCU-CHECK [facility]A PRN Reason: Protocol Last Admin: 03/22/18 17:27 Dose: Not Given Lactic Acid (Lac-Hydrin 12% Cream (140 G)) 1 ea TOP BID [facility] Last Admin: 03/22/18 17:30 Dose: 1 applic Potassium Chloride (K-Dur 20 Meq Er Tab) 20 meq PO Q12 [facility] Last Admin: 03/22/18 21:02 Dose: 20 meq Promethazine HCl/Dextromethorphan (Phenergan Dm Syrup) 10 ml PO Q6 PRN PRN Reason: Cough Last Admin: 03/22/18 21:29 Dose: 10 ml Sitagliptin Phosphate (Januvia) 50 mg PO DAILY [facility] Last Admin: 03/22/18 08:46 Dose: 50 mg Spironolactone (Aldactone) 50 mg PO BID [facility] Last Admin: 03/22/18 17:27 Dose: 50 mg - Labs Labs: 03/20/18 05:20 03/22/18 05:30 - Head Exam Head Exam: NORMAL INSPECTION - Eye Exam Eye Exam: Normal appearance - Respiratory Exam Respiratory Exam: Clear to Ausculation Bilateral - Cardiovascular Exam Cardiovascular Exam: REGULAR RHYTHM - GI/Abdominal Exam GI & Abdominal Exam: Normal Bowel Sounds - Neurological Exam Neurological Exam: Awake, Oriented x3 Assessment and Plan (1) Atrial flutter Status: Acute (2) CHF exacerbation Status: Acute (3) Essential (primary) hypertension Status: Acute (4) Right-sided heart failure Status: Acute (5) Deep vein thrombosis Status: Acute (6) Deep vein thrombosis Status: Acute (7) Deep vein thrombosis Status: Acute - Assessment and Plan (Free Text) Plan: Cont meds Cont tx Conrt eliquis cont pt
[2018-03-23] MEDS: Promethazine DM 12.5 mg-30 mg/10 ml Syrup PO PRN ×2 (03:27→10:12)
[2018-03-23 07:02] LABS: ALB/GLOB RATIO 0.9 (1.0-2.1); ALBUMIN 3.4 g/dL (3.5-5.0); CALCIUM 9.7 mg/dL (8.4-10.2)
[2018-03-23] MEDS: Insulin Lispro (humaLOG) 100 Units/ml Inj SC SCH ×2 (07:48→11:13)
[2018-03-23] MEDS: Potassium Chloride 20 mEq ER Tab PO SCH (08:07)
[2018-03-23] MEDS: Ammonium Lactate 12% Cream (140 g) TOP SCH (08:07)
[2018-03-23 08:08] VITALS: BP 110/65
[2018-03-23] MEDS: Santyl Collagenase OINTMENT TOP SCH (08:08)
[2018-03-23 08:19] VITALS: PULSE 72; TEMP 97; O2SAT 98
--- NOTE | 2018-03-23 09:06 | CP.PCM.PN ---
Subjective - Date & Time of Evaluation Date of Evaluation: 03/23/18 Time of Evaluation: 08:50 - Subjective Subjective: Dyspnoea less Weight 172 lbs (has lost an addl 2 lbs) BP 114/70 mm Hg, Hr 70 BPM JVP flat, no rales Pedal oedema further reduced LabsMild elevatiom in BUN/ Creatinin with diuresis K+ 5.3 mEq/L (Have held K + this AM), will repeat BMP Have reduced daily Lasix to 40 mg Daily from BID Zaroxolyn was D/Chong yesterday Objective - Vital Signs/Intake and Output Vital Signs (last 24 hours): Temp Pulse Resp BP Pulse Ox 97.0 F L 72 20 110/65 98 03/23/18 08:18 03/23/18 08:18 03/23/18 08:18 03/23/18 08:18 03/23/18 08:18 Intake and Output: 03/23/18 03/23/18 06:59 18:59 Intake Total 120 Output Total 250 Balance -130 - Medications Medications: Current Medications Apixaban (Eliquis) 2.5 mg PO BID [facility] PRN Reason: Protocol Last Admin: 03/23/18 08:07 Dose: 2.5 mg Atorvastatin Calcium (Lipitor) 20 mg PO HS [facility] Last Admin: 03/22/18 21:04 Dose: 20 mg Collagenase (Santyl) 1 applic TOP DAILY [facility] Last Admin: 03/23/18 08:08 Dose: Not Given Donepezil HCl (Aricept) 5 mg PO HS [facility] Last Admin: 03/22/18 21:02 Dose: 5 mg Famotidine (Pepcid) 20 mg PO DAILY [facility] Last Admin: 03/23/18 08:08 Dose: 20 mg Furosemide (Lasix) 40 mg PO DAILY [facility] Insulin Detemir (Levemir) 5 units SC HS [facility] Last Admin: 03/22/18 21:03 Dose: 5 u Insulin Human Lispro (Humalog) 0 units SC ACCU-CHECK [facility] PRN Reason: Protocol Last Admin: 03/23/18 07:48 Dose: Not Given Lactic Acid (Lac-Hydrin 12% Cream (140 G)) 1 ea TOP BID [facility] Last Admin: 03/23/18 08:07 Dose: 1 applic Potassium Chloride (K-Dur 20 Meq Er Tab) 20 meq PO Q12 [facility] Last Admin: 03/23/18 08:07 Dose: Not Given Promethazine HCl/Dextromethorphan (Phenergan Dm Syrup) 10 ml PO Q6 PRN PRN Reason: Cough Last Admin: 03/23/18 03:27 Dose: 10 ml Sitagliptin Phosphate (Januvia) 50 mg PO DAILY [facility] Last Admin: 03/23/18 08:07 Dose: 50 mg Spironolactone (Aldactone) 50 mg PO BID [facility] Last Admin: 03/23/18 08:07 Dose: 50 mg - Labs Labs: 03/20/18 05:20 03/23/18 05:50
--- NOTE | 2018-03-23 10:10 | CP.PCM.DIS ---
Provider - Provider Date of Admission: 03/19/18 17:33 Attending physician: Franc Alvarez MD Time Spent in preparation of Discharge (in minutes): 30 Diagnosis - Discharge Diagnosis (1) Atrial flutter Status: Acute (2) CHF exacerbation Status: Acute (3) Essential (primary) hypertension Status: Acute (4) Right-sided heart failure Status: Acute (5) Deep vein thrombosis Status: Acute (6) Deep vein thrombosis Status: Acute (7) Deep vein thrombosis Status: Acute Hospital Course - Lab Results Lab Results: Most Recent Lab Values WBC 9.6 K/uL (4.8-10.8) 03/20/18 05:20 RBC 3.91 Mil/uL (4.40-5.90) L 03/20/18 05:20 Hgb 12.8 g/dL (12.0-18.0) 03/20/18 05:20 Hct 38.0 % (35.0-51.0) 03/20/18 05:20 MCV 97.1 fl (80.0-94.0) H 03/20/18 05:20 MCH 32.6 pg (27.0-31.0) H 03/20/18 05:20 MCHC 33.6 g/dL (33.0-37.0) 03/20/18 05:20 RDW 17.1 % (11.5-14.5) H 03/20/18 05:20 Plt Count 198 K/uL (130-400) 03/20/18 05:20 Sodium 137 mmol/l (132-148) 03/23/18 05:50 Potassium 5.3 MMOL/L (3.6-5.0) H 03/23/18 05:50 Chloride 96 mmol/L (98-107) L 03/23/18 05:50 Carbon Dioxide 33 mmol/L (22-30) H 03/23/18 05:50 Anion Gap 13 (10-20) 03/23/18 05:50 BUN 73 mg/dl (9-20) H 03/23/18 05:50 Creatinine 2.5 mg/dl (0.8-1.5) H 03/23/18 05:50 Est GFR ( Amer) 30 03/23/18 05:50 Est GFR (Non-Af Amer) 03/23/18 05:50 POC Glucose (mg/dL) 109 mg/dL (65-110) 03/23/18 05:35 Random Glucose 89 mg/dL (75-110) 03/23/18 05:50 Calcium 9.7 mg/dL (8.4-10.2) 03/23/18 05:50 Total Bilirubin 1.9 mg/dl (0.2-1.3) H 03/23/18 05:50 AST 61 U/L (17-59) H 03/23/18 05:50 ALT 58 U/L (21-72) 03/23/18 05:50 Alkaline Phosphatase 286 U/L (38-126) H 03/23/18 05:50 NT-Pro-B Natriuret Pep 54629 pg/ml (0-900) H 03/20/18 05:20 Total Protein 7.0 G/DL (6.3-8.2) 03/23/18 05:50 Albumin 3.4 g/dL (3.5-5.0) L 03/23/18 05:50 Globulin 3.6 gm/dL (2.2-3.9) 03/23/18 05:50 Albumin/Globulin Ratio 0.9 (1.0-2.1) L 03/23/18 05:50 Vitamin B12 990 pg/mL (239-931) H 03/23/18 05:50 TSH 3rd Generation 4.71 mIU/ML (0.46-4.68) H 03/23/18 05:50 - Hospital Course Hospital Course: This is a 77 y/o male admitted for gen debility and CHF. He was at telemetry for CHF which presented as leg edema bilateral. He was started on lasix and spironolactone. He was so debilitated hence admitted to subacute rehab. At the rehab he was noted to have mild cognitive deficits. He was noted to have persistently hard to palptae leg edema and venous doppler showed DVT on the left. He has been on Eliquis 2.5 bid and Cardiology, Dr Livia Bal advised to continue Eliquis. He was discharged in stable condition and was given Rx for further outpatient phys therapy. Discharge Exam - Head Exam Head Exam: NORMAL INSPECTION - Eye Exam Eye Exam: Normal appearance - Respiratory Exam Respiratory Exam: NORMAL BREATHING PATTERN - GI/Abdominal Exam GI & Abdominal Exam: Normal Bowel Sounds - Neurological Exam Neurological exam: CN II-XII Intact, Oriented x3 - Psychiatric Exam Psychiatric exam: Normal Mood Discharge Plan - Follow Up Plan Condition: GOOD Disposition: HOME/ ROUTINE Additional Instructions: repeat CXR do CMP cbc prior to discharge. Rx given arrange for homemaker.
[2018-03-23 11:26] LABS: CALCIUM 9.5 mg/dL (8.4-10.2)
--- NOTE | 2018-03-23 14:18 | RAD ---
HISTORY: cough COMPARISON: Chest radiograph 03/14/2018. TECHNIQUE: Chest PA and lateral FINDINGS: LUNGS: No active pulmonary disease. Tiny calcified granulomata are identified at the mid left lung zone laterally once again. PLEURA: No significant pleural effusion identified. No pneumothorax apparent. CARDIOVASCULAR: Stable cardiomegaly. No pulmonary vascular congestion. OSSEOUS STRUCTURES: No significant abnormalities. VISUALIZED UPPER ABDOMEN: Normal. OTHER FINDINGS: None. IMPRESSION: Stable cardiomegaly. No pulmonary vascular congestion or active pulmonary disease bilaterally.
== END 2018-03-23 15:02 | disposition home health service (06) | DRG 292 ==
LOC: H.TCU 17:33
PROVIDERS: ADMIT Family Medicine; ATTEND Family Medicine
PROC: F08Z4FZ Home Management Treatment using Assistive, Adaptive, Supportive or Protective Equipment (ICD-10-PCS; principal; 2018-03-19)
PROC: F07M6FZ Therapeutic Exercise Treatment of Musculoskeletal System - Whole Body using Assistive, Adaptive, Supportive or Protective Equipment (ICD-10-PCS; 2018-03-19)
DX: I13.0 Hypertensive heart and chronic kidney disease with heart failure and stage 1 through stage 4 chronic kidney disease, or unspecified chronic kidney disease (principal); E87.1 Hypo-osmolality and hyponatremia; I48.92 Unspecified atrial flutter; R18.8 Other ascites; L97.919 Non-pressure chronic ulcer of unspecified part of right lower leg with unspecified severity; L97.929 Non-pressure chronic ulcer of unspecified part of left lower leg with unspecified severity; E11.22 Type 2 diabetes mellitus with diabetic chronic kidney disease; E11.51 Type 2 diabetes mellitus with diabetic peripheral angiopathy without gangrene; I50.812 Chronic right heart failure; E11.622 Type 2 diabetes mellitus with other skin ulcer; F03.90 Unspecified dementia, unspecified severity, without behavioral disturbance, psychotic disturbance, mood disturbance, and anxiety; H91.90 Unspecified hearing loss, unspecified ear; I07.1 Rheumatic tricuspid insufficiency; I25.10 Atherosclerotic heart disease of native coronary artery without angina pectoris; I27.29 Other secondary pulmonary hypertension; I87.2 Venous insufficiency (chronic) (peripheral); N18.9 Chronic kidney disease, unspecified; T50.2X5A Adverse effect of carbonic-anhydrase inhibitors, benzothiadiazides and other diuretics, initial encounter; Z79.01 Long term (current) use of anticoagulants; Z95.5 Presence of coronary angioplasty implant and graft

== ENCOUNTER 2018-07-16 22:37 | Inpatient (IN) | payer MEDICARE, OTHER ==
[2018-07-16 22:37] VITALS: BMI 29.5
--- NOTE | 2018-07-16 23:47 | CP.PCM.CON ---
History of Present Illness - History of Present Illness History of Present Illness: Podiatry Consult Note - Dr. Jones 77 year old male patient PMHx DM, CHF, CAD, HTN, hx of DVT seen and evaluated in ED concerning worsening bilateral lower extremity pain. Patient reports pain around wounds in both legs ongoing for the past few months; states he is being treated by Dr. Jones for wound care for the past year however reports worsening lower leg pain b/l with associated swelling onset 1 week. Patient admits to taking Tylenol for pain relief, but pain still persisted which prompted visit to ED. Patient denies N/V/F/D/C/SOB/MARTINEZ/CP/dizziness. Offers no other complaints. Review of Systems - Review of Systems All systems: reviewed and no additional remarkable complaints except (as per HPI) Past Patient History - Past Medical History & Family History Past Medical History?: Yes - Past Social History Smoking Status: Never Smoked - CARDIAC Hx Congestive Heart Failure: Yes Hx Hypertension: Yes - PULMONARY Hx Respiratory Disorders: No - NEUROLOGICAL Hx Neurological Disorder: No Hx Dementia: Yes - HEENT Hx HEENT Problems: Yes Hx Deafness: Yes (w/ hearing aid) - RENAL Hx Chronic Kidney Disease: No - ENDOCRINE/METABOLIC Hx Endocrine Disorders: No - HEMATOLOGICAL/ONCOLOGICAL Hx Blood Disorders: No - INTEGUMENTARY Hx Dermatological Problems: No - MUSCULOSKELETAL/RHEUMATOLOGICAL Hx Musculoskeletal Disorders: No Hx Falls: Yes - GASTROINTESTINAL Hx Gastrointestinal Disorders: No - GENITOURINARY/GYNECOLOGICAL Hx Genitourinary Disorders: No - PSYCHIATRIC Hx Psychophysiologic Disorder: No Hx Substance Use: No - SURGICAL HISTORY Hx Surgeries: Yes Hx Orthopedic Surgery: Yes (ankle and knee surgery) - ANESTHESIA Hx Anesthesia: Yes Hx Anesthesia Reactions: No Meds Allergies/Adverse Reactions: Allergies Allergy/AdvReac Type Severity Reaction Status Date / Time No Known Allergies Allergy Verified 03/14/18 22:45 Physical Exam - Constitutional Appears: Non-toxic, No Acute Distress - Extremities Exam Additional comments: VASC: DP and PT pulses nonpalpable b/l. CFT <3 seconds to digits x10. Temperature gradient cool to cool, no increase in warmth to areas of erythema. +1 pitting edema noted to foot and ankle b/l. Varicosities present. NEURO: Gross sensation intact bilaterally. DERM: LLE=2 x 2 x 0.2 cm ulceration noted to left anterior lower leg - ulcer extends down to subcutaneous tissue; no drainage noted; no purulence; no fluctuance; no undermining; no tunneling. Ulceration noted to posterior leg; no drainage; no purulence; no fluctuance; no undermining; no tunneling. Red/purple discoloration of leg extending from distal half of tibia extending into digits, not diminished with elevation of limb. RLE=Two abrasions noted to anterior tibia midleg with 100% granular base; no drainage; no purulence; no fluctuance; no underminig; no tunneling. Third abr asion noted to knee with no drainage, pururlence, flucutance noted. Erythema noted midlig extending into digits which is diminished with elevation of limb. Ortho: Moderate pain on palpation to the wounds, no gross deformities noted. - Neurological Exam Neurological exam: Alert, Oriented x3 - Psychiatric Exam Psychiatric exam: Normal Affect, Normal Mood Results - Vital Signs Recent Vital Signs: Last Vital Signs Temp 96.8 F L 07/16/18 22:41 Pulse 57 L 07/16/18 22:41 Resp 18 07/16/18 22:41 BP 106/63 07/16/18 22:41 Pulse Ox 99 07/16/18 22:41 - Labs Result Diagrams: 07/16/18 23:40 07/16/18 23:40 Labs: Laboratory Results - last 24 hr 07/16/18 23:41 POC Glucose (mg/dL) 130 H Assessment & Plan - Assessment and Plan (Free Text) Assessment: 77M with bilateral lower extremity ulcerations 2/2 PVD Plan: Patient seen and evaluated Discussed with attending, Dr. Jones Afebrile, WBC WNL 8.7 Arterial duplex ordered, f/u Venous duplex ordered, f/u No evidence of cellulitis at this time, will conitnue to monitor Wound care performed - bacitracin, telfa, DSD to b/l ulcerations Pain control per ED Patient to be admitted for hyperkalemia - podiatry will continue to follow while in house Thank you for the consult
--- NOTE | 2018-07-16 23:53 | ED PDOC ---
Lower Extremity Pain/Injury Time Seen by Provider: 07/16/18 23:01 Chief Complaint (Nursing): Lower Extremity Problem/Injury Chief Complaint (Provider): Lower Extremity Problem/Injury History Per: Patient, Family (Daughter) History/Exam Limitations: no limitations Onset/Duration Of Symptoms: Days (x7) Additional Complaint(s): 77 years old male with history of hypertension, diabetes, DVT, chronic lower extremity ulcer and CHF presents to ER for evaluation of bilateral lower extremity stinging pain onset 1 week. Patient reports pain and swelling have gotten worse mostly to right lower extremity causing weeping from skin of leg tibial surface. He states swelling came down with a diuretic medicine he takes. Patient also complains of pain to left lower extremity where he has ulcer tibial surface but states it is not worse than the right extremity. He reports taking Tylenol with no relief. Patient denies any fever, chills, shortness of breath or chest pain. Greensman: Dr. Logan PMD: at [facility] [employer]: Dr. Robbie Jones Past Medical History Reviewed: Historical Data, Nursing Documentation, Vital Signs Vital Signs: Last Vital Signs Temp 96.8 F L 07/16/18 22:41 Pulse 57 L 07/16/18 22:41 Resp 18 07/16/18 22:41 BP 106/63 07/16/18 22:41 Pulse Ox 99 07/16/18 22:41 - Medical History PMH: CAD, CHF, Dementia, Deep Vein Thrombosis, HTN, Hyperlipidemia Denies: Chronic Kidney Disease Other PMH: Chronic Lower Extremity Ulcer - Surgical History Surgical History: No Surg Hx - Family History Family History: States: Unknown Family Hx - Social History Current smoker - smoking cessation education provided: No Alcohol: None Drugs: Denies - Home Medications Home Medications: Ambulatory Orders Medication Instructions Recorded RX: Apixaban [Eliquis] 2.5 mg PO BID 03/15/18 RX: Atorvastatin [Lipitor] 20 mg PO DAILY 03/15/18 RX: Ammonium Lactate 12% 1 ea TOP BID tube 03/19/18 [Lac-Hydrin 12% Cream (140 g)] RX: Insulin Detemir [Levemir] 5 units SC HS vial 03/19/18 RX: SITagliptin [Januvia] 50 mg PO DAILY tab 03/19/18 RX: Spironolactone [Aldactone] 50 mg PO BID tab 03/19/18 - Allergies Allergies/Adverse Reactions: Allergies Allergy/AdvReac Type Severity Reaction Status Date / Time No Known Allergies Allergy Verified 03/14/18 22:45 Review of Systems ROS Statement: Except As Marked, All Systems Reviewed And Found Negative Constitutional: Negative for: Fever Cardiovascular: Negative for: Chest Pain Respiratory: Negative for: Shortness of Breath Musculoskeletal: Positive for: Leg Pain (Bilateral, worse to right than left with swelling) Physical Exam - Reviewed Nursing Documentation Reviewed: Yes Vital Signs Reviewed: Yes - Physical Exam Appears: Positive for: Non-toxic, No Acute Distress Head Exam: Positive for: ATRAUMATIC, NORMOCEPHALIC Skin: Positive for: Normal Color, Warm, Dry Pulses-Dorsalis Pedis (L): 1+ Pulses-Dorsalis Pedis (R): 1+ Extremity: Positive for: Normal ROM, Other (Left Lower Extremity: 1.5 cm dry ulceration with no drainage to left tibial surface. 0.5 cm ulcer to left posterior extremity. Purplish hue to left extremity that daughter states is not new to him. Right lower extremity erythema. Warm to touch bilaterally. Patient able to move toes and has sensation to touch.) Neurologic/Psych: Positive for: Alert, Oriented (x3) - Laboratory Results Result Diagrams: 07/16/18 23:40 07/17/18 13:02 - ECG O2 Sat by Pulse Oximetry: 99 (RA) Pulse Ox Interpretation: Normal Medical Decision Making Medical Decision Making: Time: 2323 Initial Impression: 77 years old male with lower extremity pain due to chronic ulcer and previous DVT. Initial Plan: --Labs --Bilateral Lower Extremity US --Patient refused Morphine but accepted Toradol --Dextrose 50% 50 ml IVP --Insulin 10 units IVP --Sodium Bicarbonate 50 ml --Ultram 50 mg --Podiatry Consultation 0132 Labs reviewed sig for elevated potassium Patient continues to have pain and unable to cooperate with ultrasound procedure; He is now amenable to take IV morphine for persistent pain. 0320 Bilateral Lower Extremity Venous Duplex Findings: Real-time ultrasound images of the deep venous system with Doppler evaluation. Normal compression, spontaneity and augmentation. Normal color Doppler. No intraluminal thrombus is seen. IMPRESSION: No evidence of deep venous thrombosis. Very difficult exam secondary to patient's medical condition and from severe pain. Electronically signed on Jul 17, 2018 3:20:47 AM EDT by: Chani Rico M.D., Certified by NADIYA RANGEL, Neuroradiology 0326 Bilateral Lower Extremity Arterial Duplex Findings: Triphasic waveform pattern in the right common femoral and proximal right superficial femoral arteries. Biphasic waveform patterns noted in the mid aspect of the right superficial femoral artery, distal aspect of the right superficial femoral artery, popliteal and posterior tibial arteries. The right anterior tibial and dorsalis pedis arteries are not scanned secondary to overlying dressing. Biphasic waveform pattern is noted in the left common femoral artery, left superficial femoral artery, left popliteal, left posterior and anterior tibial arteries. The left dorsalis pedis artery was not scanned secondary to overlying dressing. Benign looking reactive lymph node is identified in the right inguinal region measuring 2.5 cm. Diffuse atheromatous plaques are noted. Normal peak systolic velocities are seen. Impression: Mild arterial disease in the mid aspect of the right superficial femoral artery. Mild arterial disease in the left external iliac artery. Electronically signed on Jul 17, 2018 3:26:33 AM EDT by: Chani Rico M.D., Certified by NADIYA RANGEL, Neuroradiology 0336 Patient evaluated by Podiatry Service who opine no acute cellulitic or infectious process. They have applied local dressings and will follow patient on inpatient unit. Case referred to Dr. Savage for admission and further treatment Scribe Attestation: Documented by Yue Dwyer, acting as a scribe for Donavon Silva MD. Provider Scribe Attestation: All medical record entries made by the Scribe were at my direction and personally dictated by me. I have reviewed the chart and agree that the record accurately reflects my personal performance of the history, physical exam, medical decision making, and the department course for this patient. I have also personally directed, reviewed, and agree with the discharge instructions and disposition. Disposition - Clinical Impression Clinical Impression: Hyperkalemia, Chronic ulcer of lower extremity, Lower extremity pain - Patient ED Disposition Is Patient to be Admitted: Yes - Disposition Disposition Time: 03:36 Condition: FAIR
[2018-07-17] LABS: BASO # 0.1 K/uL (0.0-0.2); BASO % 0.9 % (0.0-2.0); EOS # 0.3 K/uL (0.0-0.7); LYMPH # 0.5 K/uL (1.0-4.3); LYMPH % 5.3 % (20.0-40.0); MEAN CELL VOLUME 95.1 fl (80.0-94.0); MEAN CORPUSCULAR HEMOGLOBIN 31.6 pg (27.0-31.0); MEAN CORPUSCULAR HGB CONC 33.3 g/dL (33.0-37.0); MEAN PLATELET VOLUME 10.1 fl (7.2-11.7); MONO # 0.9 K/uL (0.0-0.8); MONO % 9.8 % (0.0-10.0); NEUT # 7.1 K/uL (1.8-7.0); NRBC % 0.1 % (0.0-0.0); PLATELET COUNT 182 K/uL (130-400); RBC 4.73 Mil/uL (4.40-5.90); RED CELL DISTRIBUTION WIDTH 17.4 % (11.5-14.5); WHITE BLOOD COUNT 8.7 K/uL (4.8-10.8)
[2018-07-17 00:12] LABS: ALBUMIN 3.8 g/dL (3.5-5.0); CALCIUM 9.5 mg/dL (8.4-10.2)
[2018-07-17] MEDS ORDERED: Insulin Regular 100 units/ml IV ONE (00:14)
[2018-07-17] MEDS ORDERED: Dextrose 50% SYRINGE Inj (50 ml) IVP ONE (00:14)
[2018-07-17 00:15] LABS: INR 1.3; PROTHROMBIN TIME 14.2 Seconds (9.8-13.1)
[2018-07-17] MEDS ORDERED: Sodium Bicarbonate 7.5% (0.9 MEQ/ML) 50ML INJ IV ONE (00:15)
[2018-07-17 00:18] LABS: PARTIAL THROMBOPLASTIN TIME 32.1 Seconds (25.6-37.1)
[2018-07-17] MEDS ORDERED: Dextrose 50% SYRINGE Inj (50 ml) ONE (00:35)
[2018-07-17] MEDS ORDERED: Insulin Regular 100 units/ml ONE (00:37)
[2018-07-17] MEDS ORDERED: Morphine 4 MG/ML VIAL ONE (01:37)
[2018-07-17 02:10] LABS: BANDS 2 % (0-2); LYMPHOCYTE 9 % (20-50); MONOCYTE 4 % (0-10); NEUTROPHIL 84 % (42-75); REACTIVE LYMPHOCYTES 1 % (0-0); TOTAL CELLS COUNTED 100
[2018-07-17 02:11] LABS: PLATELET ESTIMATE NORMAL (NORMAL)
[2018-07-17 02:12] LABS: ANISOCYTOSIS SLIGHT
[2018-07-17 02:13] LABS: TEARDROP CELLS SLIGHT
[2018-07-17 02:14] LABS: OVALOCYTES SLIGHT
--- NOTE | 2018-07-17 07:17 | CP.PCM.PN ---
Subjective - Date & Time of Evaluation Date of Evaluation: 07/17/18 Time of Evaluation: 07:17 Objective - Vital Signs/Intake and Output Vital Signs (last 24 hours): Temp Pulse Resp BP Pulse Ox 96.8 F L 50 L 18 92/56 L 99 07/16/18 22:41 07/17/18 04:52 07/17/18 04:52 07/17/18 04:52 07/17/18 04:52 - Medications Medications: Current Medications Apixaban (Eliquis) 2.5 mg PO BID [facility]; Protocol Atorvastatin Calcium (Lipitor) 20 mg PO DAILY [facility] Insulin Detemir (Levemir) 5 units SC HS [facility] Sitagliptin Phosphate (Januvia) 50 mg PO DAILY [facility] - Labs Labs: 07/16/18 23:40 07/17/18 06:00 PT 14.2 Seconds (9.8-13.1) H 07/16/18 23:40 INR 1.3 07/16/18 23:40 APTT 32.1 Seconds (25.6-37.1) 07/16/18 23:40
[2018-07-17] MEDS ORDERED: Sod Polystyrene Sulf 15 gm/60 ml Susp PO ONE ×2 (09:00→15:00)
--- NOTE | 2018-07-17 09:36 | CARD ---
APPROVED REPORT Date of service: 07/17/2018 EKG Measurement Heart [id number] <Conclusion> Sinus bradycardia with 1st degree AV block Possible Left atrial enlargement Septal infarct, age undetermined Lateral infarct, age undetermined ST & T wave abnormality, consider inferolateral ischemia Abnormal ECG
--- NOTE | 2018-07-17 12:26 | US ---
Date of service: 07/17/2018 PROCEDURE: Duplex ultrasound of the bilateral lower extremity arteries. HISTORY: LE pain COMPARISON: None available. TECHNIQUE: Grayscale and duplex Doppler evaluation of the bilateral common femoral, superficial femoral, popliteal, posterior tibial and dorsalis pedis arteries was performed.. FINDINGS: RIGHT LOWER EXTREMITY: RIGHT COMMON FEMORAL ARTERY: Heterogeneous plaque formation. Maximal flow velocity of 92.0 cm/s. RIGHT SUPERFICIAL FEMORAL ARTERY: Heterogeneous plaque formation. Maximal flow velocity of 61.9 cm/s. RIGHT POPLITEAL ARTERY:Widely patent. Maximal flow velocity of 51.9 cm/s. RIGHT POSTERIOR TIBIAL ARTERY: Nondiagnostic study. RIGHT DORSALIS PEDIS ARTERY: Heterogeneous plaque formation. Maximal flow velocity of 65.7 cm/s. LEFT LOWER EXTREMITY: LEFT COMMON FEMORAL ARTERY: Heterogeneous plaque formation. Maximal flow velocity of 83.8 cm/s. LEFT SUPERFICIAL FEMORAL ARTERY: Heterogeneous plaque formation. Maximal flow velocity of 88.7 cm/s. LEFT POPLITEAL ARTERY:Widely patent. Maximal flow velocity of 69.3 cm/s. LEFT POSTERIOR TIBIAL ARTERY: Widely patent. Maximal flow velocity of 40.5 cm/s. LEFT DORSALIS PEDIS ARTERY: Nondiagnostic study of the left dorsalis pedis artery OTHER FINDINGS: Morphologically, unremarkable lymph node(s) right inguinal region IMPRESSION: No evidence of critical stenosis or occlusive disease. Limitations of the current examination: Nondiagnostic assessment right posterior tibial artery and left dorsalis pedis artery. Concordant findings (preliminary report) provided by [facility].
--- NOTE | 2018-07-17 12:31 | US ---
Date of service: 07/17/2018 PROCEDURE: Bilateral lower extremity venous duplex Doppler. HISTORY: LE pain COMPARISON: None available. TECHNIQUE: Bilateral common femoral, superficial femoral, popliteal and posterior tibial veins were evaluated. Flow was assessed with color Doppler, compressibility, assessment of phasic flow and augmentation response. FINDINGS: COMMON FEMORAL VEIN: Right CFV: Unremarkable. Left CFV: Unremarkable. SUPERFICIAL FEMORAL VEIN: Right SFV: Unremarkable. Left SFV: Unremarkable. POPLITEAL VEIN: Right Popliteal: Unremarkable. Left Popliteal: Unremarkable. POSTERIOR TIBIAL VEIN: Right PTV: Unremarkable. Left PTV: Unremarkable. OTHER FINDINGS: None. IMPRESSION: No evidence of deep venous thrombosis. Concordant findings (preliminary report) provided by [facility].
--- NOTE | 2018-07-17 14:26 | HP ---
HISTORY OF PRESENT ILLNESS: Mr. Francis is a 77-year-old male with multiple medical problems including congestive heart failure, diabetes mellitus, coronary artery disease, hypertension, deep venous thrombosis of lower extremities and severe peripheral vascular disease. He was admitted via the emergency room because of intractable leg pains requiring IV morphine. He states that he has been followed by the crib tender, Dr. Jones and also by Dr. Mayo, the land economist and car repairer apprentice. He indicates that for the past 24 hours he has had severe leg pain which was not relieved by medications at home. He had taken Tylenol but symptoms, however, persisted. He came to the emergency room, where he was given IV morphine and also found to have hyperkalemia which was aggressively treated. FAMILY HISTORY: Unrevealing. SOCIAL HISTORY: Socially, he denies smoking or alcohol use. REVIEW OF SYSTEMS Essentially remarkable for leg pain. PHYSICAL EXAMINATION: VITAL SIGNS: Blood pressure 106/63 with a pulse of 57, respiratory rate 18. He is afebrile. O2 sat 99% on room air. SKIN: Shows poor turgor in lower extremities with nonhealing ulcers. GENERAL: The patient is awake, alert and oriented. HEENT: Mouth shows fair hygiene. LUNGS: Clear. HEART: Bradycardic. ABDOMEN: Soft, nontender. No organomegaly. GENITALIA: Normal. EXTREMITIES: Bilateral lower extremity ulcers which appear chronic with some discoloration of the feet, but no real cyanosis. CENTRAL NERVOUS SYSTEM: The patient is awake, alert and oriented. Otherwise, no gross deficits appreciated. LABORATORY DATA: Sodium 128, potassium 6.4, BUN 93, creatinine 2.1, glucose of 111. WBC 8.7, hemoglobin 15, platelet count of 182,000. Ultrasound of the lower extremities shows no DVT. Chest x-ray is pending. EKG, official report pending, but read by me shows sinus bradycardia with first-degree AV block, possible left atrial enlargement, septal infarct age undetermined, lateral infarct age undetermined, ST-T changes, consider ischemia. IMPRESSION: Intractable leg pains, probably secondary to severe peripheral vascular disease; history of hypertension and congestive heart failure in the past, probably secondary to diastolic and systolic dysfunction; history of deep venous thrombosis of lower extremities; history of diabetes mellitus; history of chronic lower extremity ulcers due to peripheral vascular disease History of arrythmias and kidney disease Hyperkalemia PLAN: Podiatry evaluation. Cardiac evaluation for vascular intervention. Continue analgesics for pain. Anticoagulation and correction of hyperkalemia. Further therapy will depend on findings. Mirza Savage MD MTDD
--- NOTE | 2018-07-17 17:32 | CP.PCM.CON ---
History of Present Illness - History of Present Illness History of Present Illness: Consultation for evaluation of CHF HPI: Javon is a 77-year-old male with past medical history significant for right- sided heart failure who was hospitalized about 5 months ago with complains of severe bilateral lower extremity swelling was diuresed with IV diuretic therapy and subsequently added on metolazone and subsequently discharged home I was following him for the last 6 months for his heart failure symptoms he had comple te on complete ischemic evaluation back earlier in the year in [place] at which time a catheter revealed a patent stents in the left circumflex and LAD he now presents with bilateral lower extremity pain and discomfort with severely decreased exercise tolerance and discoloration of the lower extremity secondary to possible venous ulcers. At baseline he denies having any chest pain but has severe shortness of breath with minimal activity he did not undergo repeat ischemic evaluation I have reviewed all his records from [place] which showed that he does have a residual moderate CAD with no significant peripheral vascular disease to explain his lower extremity ulceration. Review of Systems - Review of Systems Systems not reviewed;Unavailable: Acuity of Condition - Constitutional Constitutional: As Per HPI - EENT Eyes: As Per HPI Ears: As Per HPI Nose/Mouth/Throat: As Per HPI - Cardiovascular Cardiovascular: As Per HPI - Respiratory Respiratory: As Per HPI - Gastrointestinal Gastrointestinal: As Per HPI - Genitourinary Genitourinary: As Per HPI - Reproductive: Male Reproductive:Male: As Per HPI - Musculoskeletal Musculoskeletal: As Per HPI - Integumentary Integumentary: As Per HPI - Neurological Neurological: As Per HPI - Psychiatric Psychiatric: As Per HPI - Endocrine Endocrine: As Per HPI - Hematologic/Lymphatic Hematologic: As Per HPI Past Patient History - Past Medical History & Family History Past Medical History?: Yes - Past Social History Smoking Status: Never Smoked - CARDIAC Hx Congestive Heart Failure: Yes Hx Hypertension: Yes - PULMONARY Hx Respiratory Disorders: No - NEUROLOGICAL Hx Neurological Disorder: No Hx Dementia: Yes - HEENT Hx HEENT Problems: Yes Hx Deafness: Yes (w/ hearing aid) - RENAL Hx Chronic Kidney Disease: No - ENDOCRINE/METABOLIC Hx Endocrine Disorders: No - HEMATOLOGICAL/ONCOLOGICAL Hx Blood Disorders: No - INTEGUMENTARY Hx Dermatological Problems: No - MUSCULOSKELETAL/RHEUMATOLOGICAL Hx Musculoskeletal Disorders: No Hx Falls: Yes - GASTROINTESTINAL Hx Gastrointestinal Disorders: No - GENITOURINARY/GYNECOLOGICAL Hx Genitourinary Disorders: No - PSYCHIATRIC Hx Psychophysiologic Disorder: No Hx Substance Use: No - SURGICAL HISTORY Hx Surgeries: Yes Hx Orthopedic Surgery: Yes (ankle and knee surgery) - ANESTHESIA Hx Anesthesia: Yes Hx Anesthesia Reactions: No Meds Allergies/Adverse Reactions: Allergies Allergy/AdvReac Type Severity Reaction Status Date / Time No Known Allergies Allergy Verified 07/23/18 17:21 - Medications Medications: Current Medications Apixaban (Eliquis) 2.5 mg PO BID [facility]; Protocol Last Admin: 07/17/18 16:32 Dose: 2.5 mg Atorvastatin Calcium (Lipitor) 20 mg PO DAILY [facility] Last Admin: 07/17/18 09:03 Dose: 20 mg Insulin Detemir (Levemir) 5 units SC [facility] Sitagliptin Phosphate (Januvia) 50 mg PO DAILY [facility] Last Admin: 07/17/18 09:02 Dose: 50 mg Physical Exam - Constitutional Appears: Well - Head Exam Head Exam: ATRAUMATIC, NORMAL INSPECTION, NORMOCEPHALIC - Eye Exam Eye Exam: EOMI, Normal appearance, PERRL Pupil Exam: NORMAL ACCOMODATION, PERRL - ENT Exam ENT Exam: Mucous Membranes Moist, Normal Exam - Neck Exam Neck exam: Positive for: Normal Inspection - Respiratory Exam Respiratory Exam: Clear to Auscultation Bilateral, NORMAL BREATHING PATTERN - Cardiovascular Exam Cardiovascular Exam: REGULAR RHYTHM - GI/Abdominal Exam GI & Abdominal Exam: Normal Bowel Sounds, Soft. absent: Tenderness - Extremities Exam Additional comments: bilateral ecchymosis and discoloration of the LE - Back Exam Back exam: NORMAL INSPECTION - Neurological Exam Neurological exam: Alert, CN II-XII Intact, Normal Gait, Oriented x3, Reflexes Normal - Psychiatric Exam Psychiatric exam: Normal Affect, Normal Mood - Skin Skin Exam: Dry, Intact, Normal Color, Warm Results - Vital Signs Recent Vital Signs: Last Vital Signs Temp 97.9 F 07/17/18 15:44 Pulse 51 L 07/17/18 15:44 Resp 17 07/17/18 15:44 BP 112/68 07/17/18 15:44 Pulse Ox 99 07/17/18 15:44 - Labs Result Diagrams: 07/23/18 05:00 07/23/18 05:00 Labs: Laboratory Results - last 24 hr 07/16/18 07/16/18 07/16/18 23:40 23:40 23:40 WBC 8.7 RBC 4.73 Hgb 15.0 D Hct 45.0 MCV 95.1 H D MCH 31.6 H MCHC 33.3 RDW 17.4 H Plt Count 182 MPV 10.1 Neut % (Auto) 81.0 H Lymph % (Auto) 5.3 L Irion % (Auto) 9.8 Eos % (Auto) 3.0 Baso % (Auto) 0.9 Neut # (Auto) 7.1 H Lymph # (Auto) 0.5 L Irion # (Auto) 0.9 H Eos # (Auto) 0.3 Baso # (Auto) 0.1 Neutrophils % (Manual) 84 H Band Neutrophils % 2 Lymphocytes % (Manual) 9 L Reactive Lymphs % 1 H Monocytes % (Manual) 4 Platelet Estimate Normal Anisocytosis (manual) Slight Tear Drop Cells Slight Ovalocytes Slight PT INR APTT Sodium 128 L Potassium 6.4 H* D Chloride 99 Carbon Dioxide 21 L Anion Gap 14 BUN 93 H Creatinine 2.1 H Est GFR ( Amer) 37 Est GFR (Non-Af Amer) 31 POC Glucose (mg/dL) Random Glucose 111 H Lactic Acid 0.6 L Calcium 9.5 Total Bilirubin 0.5 AST 41 ALT 53 Alkaline Phosphatase 180 H D NT-Pro-B Natriuret Pep Total Protein 7.7 Albumin 3.8 Globulin 3.8 Albumin/Globulin Ratio 1.0 07/16/18 07/16/18 07/17/18 23:40 23:41 05:07 WBC RBC Hgb Hct MCV MCH MCHC RDW Plt Count MPV Neut % (Auto) Lymph % (Auto) Irion % (Auto) Eos % (Auto) Baso % (Auto) Neut # (Auto) Lymph # (Auto) Irion # (Auto) Eos # (Auto) Baso # (Auto) Neutrophils % (Manual) Band Neutrophils % Lymphocytes % (Manual) Reactive Lymphs % Monocytes % (Manual) Platelet Estimate Anisocytosis (manual) Tear Drop Cells Ovalocytes PT 14.2 H INR 1.3 APTT 32.1 Sodium Potassium Chloride Carbon Dioxide Anion Gap BUN Creatinine Est GFR ( Amer) Est GFR (Non-Af Amer) POC Glucose (mg/dL) 130 H 88 Random Glucose Lactic Acid Calcium Total Bilirubin AST ALT Alkaline Phosphatase NT-Pro-B Natriuret Pep Total Protein Albumin Globulin Albumin/Globulin Ratio 07/17/18 07/17/18 07/17/18 06:00 09:11 11:13 WBC RBC Hgb Hct MCV MCH MCHC RDW Plt Count MPV Neut % (Auto) Lymph % (Auto) Irion % (Auto) Eos % (Auto) Baso % (Auto) Neut # (Auto) Lymph # (Auto) Irion # (Auto) Eos # (Auto) Baso # (Auto) Neutrophils % (Manual) Band Neutrophils % Lymphocytes % (Manual) Reactive Lymphs % Monocytes % (Manual) Platelet Estimate Anisocytosis (manual) Tear Drop Cells Ovalocytes PT INR APTT Sodium 129 L Potassium 6.0 H Chloride 99 Carbon Dioxide 21 L Anion Gap 15 BUN 96 H Creatinine 2.1 H Est GFR ( Amer) 37 Est GFR (Non-Af Amer) 31 POC Glucose (mg/dL) 119 H Random Glucose 93 Lactic Acid Calcium 9.0 Total Bilirubin AST ALT Alkaline Phosphatase NT-Pro-B Natriuret Pep 64964 H Total Protein Albumin Globulin Albumin/Globulin Ratio 07/17/18 07/17/18 13:02 16:09 WBC RBC Hgb Hct MCV MCH MCHC RDW Plt Count MPV Neut % (Auto) Lymph % (Auto) Irion % (Auto) Eos % (Auto) Baso % (Auto) Neut # (Auto) Lymph # (Auto) Irion # (Auto) Eos # (Auto) Baso # (Auto) Neutrophils % (Manual) Band Neutrophils % Lymphocytes % (Manual) Reactive Lymphs % Monocytes % (Manual) Platelet Estimate Anisocytosis (manual) Tear Drop Cells Ovalocytes PT INR APTT Sodium 129 L Potassium 6.6 H* Chloride 95 L Carbon Dioxide 26 Anion Gap 15 BUN 100 H* Creatinine 2.2 H Est GFR ( Amer) 35 Est GFR (Non-Af Amer) 29 POC Glucose (mg/dL) 120 H Random Glucose 143 H Lactic Acid Calcium 9.0 Total Bilirubin AST ALT Alkaline Phosphatase NT-Pro-B Natriuret Pep Total Protein Albumin Globulin Albumin/Globulin Ratio Assessment & Plan (1) CHF exacerbation Assessment and Plan: cont IV lasix CHF meds ischemic evaluation on friday Status: Acute (2) Chronic ulcer of lower extremity Status: Acute (3) Hyperkalemia Status: Acute (4) Lower extremity pain Status: Acute (5) Acute on chronic left systolic heart failure Status: Acute (6) Arthritis Status: Acute (7) Atrial flutter Status: Acute (8) Elevated troponin level Status: Acute (9) Essential (primary) hypertension Status: Acute
[2018-07-17] MEDS: Insulin Detemir 100 Units/ml Inj SC SCH (21:58)
[2018-07-17] MEDS: Promethazine 12.5 mg/10 ml Syrup PO PRN (22:01)
[2018-07-18 08:19] LABS: CALCIUM 8.8 mg/dL (8.4-10.2)
[2018-07-18] MEDS: Promethazine 12.5 mg/10 ml Syrup PO PRN (10:04)
[2018-07-18] MEDS ORDERED: Sod Polystyrene Sulf 15 gm/60 ml Susp PO ONE (10:44)
--- NOTE | 2018-07-18 11:13 | CP.PCM.PN ---
Subjective - Date & Time of Evaluation Date of Evaluation: 07/18/18 Time of Evaluation: 11:10 - Subjective Subjective: Podiatry Progress Note for Dr. Jones 77 year old male patient seen and evaluated bedside for bilateral lower extremity pain. Patient is resting comfortably in bed and in NAD. Patient reports pain to wound on L leg, however it is resolving. Patient denies N/V/F/SOB. Objective - Vital Signs/Intake and Output Vital Signs (last 24 hours): Temp Pulse Resp BP Pulse Ox 97.3 F L 60 20 112/71 97 07/18/18 08:26 07/18/18 08:26 07/18/18 08:26 07/18/18 08:26 07/18/18 08:26 - Medications Medications: Current Medications Apixaban (Eliquis) 2.5 mg PO BID [facility]; Protocol Last Admin: 07/18/18 10:03 Dose: 2.5 mg Atorvastatin Calcium (Lipitor) 20 mg PO DAILY [facility] Last Admin: 07/18/18 10:03 Dose: 20 mg Insulin Detemir (Levemir) 5 units SC HS [facility] Last Admin: 07/17/18 21:58 Dose: 5 units Promethazine HCl (Phenergan Syrup) 12.5 mg PO Q6 PRN PRN Reason: Cough Last Admin: 07/18/18 10:04 Dose: 12.5 mg Sitagliptin Phosphate (Januvia) 50 mg PO DAILY [facility] Last Admin: 07/18/18 10:03 Dose: 50 mg Zolpidem Tartrate (Ambien) 5 mg PO HS PRN PRN Reason: Insomnia Last Admin: 07/17/18 21:52 Dose: 5 mg - Labs Labs: 07/16/18 23:40 07/18/18 06:00 PT 14.2 Seconds (9.8-13.1) H 07/16/18 23:40 INR 1.3 07/16/18 23:40 APTT 32.1 Seconds (25.6-37.1) 07/16/18 23:40 - Constitutional Appears: Well, Non-toxic, No Acute Distress - Head Exam Head Exam: ATRAUMATIC, NORMOCEPHALIC - Extremities Exam Additional comments: Vasc: DP and PT pulses nonpalpable b/l. CFT <3 seconds to digits x10. TG cool to cool, no increase in warmth to areas of erythema. +1 pitting edema noted to foot and ankle b/l. Varicosities present. Ortho: Moderate pain on palpation to the wounds, no gross deformities noted. Neuro: Gross sensation intact bilaterally. Derm: LLE=2 x 2 x 0.2 cm ulceration noted to left anterior lower leg - ulcer extends down to subcutaneous tissue; no drainage noted; no purulence; no fluctuance; no undermining; no tunneling. Ulceration noted to posterior leg; no drainage; no purulence; no fluctuance; no undermining; no tunneling. Red/purple discoloration of leg extending from distal half of tibia extending into digits, not diminished with elevation of limb. RLE=Two abrasions noted to anterior tibia midleg with 100% granular base; no drainage; no purulence; no fluctuance; no underminig; no tunneling. Third abrasion noted to knee with no drainage, pururlence, flucutance noted. Erythema noted midlig extending into digits which is diminished with elevation of limb. - Neurological Exam Neurological Exam: Alert, Awake, Oriented x3 Assessment and Plan - Assessment and Plan (Free Text) Assessment: 77yo male patient, seen and evaluated, for bilateral lower extremity ulcerations secondary to PVD Plan: Patient seen and evaluated, discussed with attending, Dr. Jones Afebrile, WBC WNL 8.7 Arterial duplex ordered (07/16); No evidence of critical stenosis or occlusive disease Venous duplex (07/16); No evidence of DVT No evidence of cellulitis at this time, will continue to monitor Wound care performed per Fito's nursing note: ABIODUN Locke Will continue to follow while in house
--- NOTE | 2018-07-18 11:24 | CP.PCM.PN ---
Subjective - Date & Time of Evaluation Date of Evaluation: 07/18/18 Time of Evaluation: 11:28 - Subjective Subjective: AWAKE AND ALERT LESS LEG PAIN CASE DISCUSSED WITH DAUGHTER YESTERDAY--SHE INDICATES THAT PT WAS ABLE TO AMBULATE AT HOME UNTIL RECENTLY--SHE WILL LIKE PT TO GET MORE PHYSICAL THERAPY PRIOR TO D/C HOME Objective - Vital Signs/Intake and Output Vital Signs (last 24 hours): Temp Pulse Resp BP Pulse Ox 97.3 F L 60 20 112/71 97 07/18/18 08:26 07/18/18 08:26 07/18/18 08:26 07/18/18 08:26 07/18/18 08:26 - Medications Medications: Current Medications Apixaban (Eliquis) 2.5 mg PO BID [facility]; Protocol Last Admin: 07/18/18 10:03 Dose: 2.5 mg Atorvastatin Calcium (Lipitor) 20 mg PO DAILY [facility] Last Admin: 07/18/18 10:03 Dose: 20 mg Insulin Detemir (Levemir) 5 units SC HS [facility] Last Admin: 07/17/18 21:58 Dose: 5 units Promethazine HCl (Phenergan Syrup) 12.5 mg PO Q6 PRN PRN Reason: Cough Last Admin: 07/18/18 10:04 Dose: 12.5 mg Sitagliptin Phosphate (Januvia) 50 mg PO DAILY [facility] Last Admin: 07/18/18 10:03 Dose: 50 mg Zolpidem Tartrate (Ambien) 5 mg PO HS PRN PRN Reason: Insomnia Last Admin: 07/17/18 21:52 Dose: 5 mg - Labs Labs: 07/16/18 23:40 07/18/18 06:00 PT 14.2 Seconds (9.8-13.1) H 07/16/18 23:40 INR 1.3 07/16/18 23:40 APTT 32.1 Seconds (25.6-37.1) 07/16/18 23:40 - Constitutional Appears: Chronically Ill - Head Exam Head Exam: ATRAUMATIC, NORMAL INSPECTION, NORMOCEPHALIC - Eye Exam Eye Exam: EOMI, Normal appearance, PERRL Pupil Exam: NORMAL ACCOMODATION, PERRL - ENT Exam ENT Exam: Mucous Membranes Moist, Normal Exam - Neck Exam Neck Exam: Full ROM, Normal Inspection. absent: Lymphadenopathy - Respiratory Exam Respiratory Exam: Clear to Ausculation Bilateral, NORMAL BREATHING PATTERN - Cardiovascular Exam Cardiovascular Exam: Irregular Rhythm, +S1, +S2. absent: Murmur - GI/Abdominal Exam GI & Abdominal Exam: Soft, Normal Bowel Sounds. absent: Tenderness - Rectal Exam Rectal Exam: NORMAL INSPECTION - Extremities Exam Extremities Exam: Full ROM. absent: Joint Swelling, Pedal Edema Additional comments: CHRONIC FEET/LEG ULCERS - Back Exam Back Exam: NORMAL INSPECTION - Neurological Exam Neurological Exam: Alert, Awake, CN II-XII Intact, Oriented x3 - Psychiatric Exam Psychiatric exam: Normal Affect, Normal Mood - Skin Skin Exam: Dry, Intact, Normal Color, Warm Assessment and Plan - Assessment and Plan (Free Text) Assessment: SEVERE PERIPHERAL VASC DZ WITH LEG PAINS CARDIAC ARRYTHMIAS HYPERKALEMIA RENAL INSUFFICIENCY CHRONIC LEG ULCERS Plan: COPNTINUE CURRENT RX KYEXALATE FOR HYPERKALEMIA NEPHROLOGY EVALUATION CARDIOLOGY AND PODIATRY CARE APPRECIATED WILL ASK UROLOGIST PHYSICIAN TO SPEAK WITH FAMILY ABOUT TCU/SUBACUTE CARE
--- NOTE | 2018-07-18 12:12 | CARD ---
APPROVED REPORT Date of service: 07/17/2018 EKG Measurement Heart [id number] <Conclusion> Marked sinus bradycardia with 1st degree AV block and junctional escape beats Septal infarct, age undetermined Lateral infarct, age undetermined ST & T wave abnormality, consider inferolateral ischemia Abnormal ECG
--- NOTE | 2018-07-18 13:52 | CP.PCM.CON ---
History of Present Illness - History of Present Illness History of Present Illness: 77 years old male with history of hypertension, diabetes, DVT, chronic lower extremity ulcer and CHF presents to ER for evaluation of bilateral lower extremity stinging pain onset 1 week. Patient reports pain and swelling have gotten worse mostly to right lower extremity causing weeping from skin of leg tibial surface. He states swelling came down with a diuretic medicine he takes. Patient also complains of pain to left lower extremity where he has ulcer tibial surface but states it is not worse than the right extremity. He reports taking Tylenol with no relief. Patient denies any fever, chills, shortness of breath or chest pain. pt is a poor historian, chart reviewed and history is obtained. renal consult is requested for increased bun/cr and hyperkalemia, s/p kayexalate this morning, no cp, no palpiattaion, no nausea, no vomitins, no abd.pain, no fever, no cough, no sob Review of Systems - Review of Systems All systems: reviewed and no additional remarkable complaints except Review of Systems: b/l leg ulcers, - Constitutional Constitutional: As Per HPI - EENT Eyes: As Per HPI Ears: As Per HPI Nose/Mouth/Throat: As Per HPI - Cardiovascular Cardiovascular: As Per HPI - Respiratory Respiratory: As Per HPI - Gastrointestinal Gastrointestinal: As Per HPI - Genitourinary Genitourinary: As Per HPI - Musculoskeletal Musculoskeletal: As Per HPI - Integumentary Integumentary: As Per HPI - Neurological Neurological: As Per HPI - Endocrine Endocrine: As Per HPI - Hematologic/Lymphatic Hematologic: As Per HPI Past Patient History - Past Medical History & Family History Past Medical History?: Yes - Past Social History Alcohol: None Drugs: Denies - CARDIAC Hx Congestive Heart Failure: Yes Hx Hypertension: Yes - PULMONARY Hx Respiratory Disorders: No - NEUROLOGICAL Hx Dementia: Yes - HEENT Hx HEENT Problems: Yes Hx Deafness: Yes (w/ hearing aid) - RENAL Hx Chronic Kidney Disease: No - ENDOCRINE/METABOLIC Hx Endocrine Disorders: No - HEMATOLOGICAL/ONCOLOGICAL Hx Blood Disorders: No - INTEGUMENTARY Hx Dermatological Problems: No - MUSCULOSKELETAL/RHEUMATOLOGICAL Hx Musculoskeletal Disorders: No Hx Falls: Yes - GASTROINTESTINAL Hx Gastrointestinal Disorders: No - GENITOURINARY/GYNECOLOGICAL Hx Genitourinary Disorders: No - PSYCHIATRIC Hx Psychophysiologic Disorder: No Hx Substance Use: No - SURGICAL HISTORY Hx Surgeries: Yes Hx Orthopedic Surgery: Yes (ankle and knee surgery) - ANESTHESIA Hx Anesthesia: Yes Hx Anesthesia Reactions: No Meds Allergies/Adverse Reactions: Allergies Allergy/AdvReac Type Severity Reaction Status Date / Time No Known Allergies Allergy Verified 03/14/18 22:45 - Medications Medications: Current Medications Apixaban (Eliquis) 2.5 mg PO BID [facility]; Protocol Last Admin: 07/18/18 10:03 Dose: 2.5 mg Atorvastatin Calcium (Lipitor) 20 mg PO DAILY [facility] Last Admin: 07/18/18 10:03 Dose: 20 mg Benzocaine/Menthol (Cepacol Sore Throat) 1 malika PO Q3 PRN PRN Reason: Sore Throat Insulin Detemir (Levemir) 5 units SC HS [facility] Last Admin: 07/17/18 21:58 Dose: 5 units Promethazine HCl (Phenergan Syrup) 12.5 mg PO Q6 PRN PRN Reason: Cough Last Admin: 07/18/18 10:04 Dose: 12.5 mg Sitagliptin Phosphate (Januvia) 50 mg PO DAILY [facility] Last Admin: 07/18/18 10:03 Dose: 50 mg Zolpidem Tartrate (Ambien) 5 mg PO HS PRN PRN Reason: Insomnia Last Admin: 07/17/18 21:52 Dose: 5 mg Physical Exam - Constitutional Appears: Non-toxic, No Acute Distress - Head Exam Head Exam: ATRAUMATIC, NORMAL INSPECTION, NORMOCEPHALIC - Eye Exam Eye Exam: EOMI, Normal appearance, PERRL Pupil Exam: NORMAL ACCOMODATION - ENT Exam ENT Exam: Mucous Membranes Moist - Neck Exam Neck exam: Positive for: Full Rom, Normal Inspection - Respiratory Exam Respiratory Exam: Clear to Auscultation Bilateral, NORMAL BREATHING PATTERN - GI/Abdominal Exam GI & Abdominal Exam: Normal Bowel Sounds, Soft - Rectal Exam Rectal Exam: Deferred - Extremities Exam Additional comments: b/l leg ulcers, ozzing, dressing to both legs - Neurological Exam Neurological exam: Alert, CN II-XII Intact, Oriented x3 Results - Vital Signs Recent Vital Signs: Last Vital Signs Temp 97.5 F L 07/18/18 12:58 Pulse 66 07/18/18 12:58 Resp 20 07/18/18 12:58 BP 114/71 07/18/18 12:58 Pulse Ox 98 07/18/18 12:58 - Labs Result Diagrams: 07/16/18 23:40 07/18/18 15:26 Labs: Laboratory Results - last 24 hr 07/17/18 07/17/18 07/17/18 13:02 16:09 21:45 Sodium 129 L Potassium 6.6 H* Chloride 95 L Carbon Dioxide 26 Anion Gap 15 BUN 100 H* Creatinine 2.2 H Est GFR ( Amer) 35 Est GFR (Non-Af Amer) 29 POC Glucose (mg/dL) 120 H 176 H Random Glucose 143 H Calcium 9.0 07/18/18 07/18/18 07/18/18 05:10 06:00 12:24 Sodium 128 L Potassium 6.1 H Chloride 96 L Carbon Dioxide 23 Anion Gap 15 BUN 106 H* Creatinine 2.3 H Est GFR ( Amer) 34 Est GFR (Non-Af Amer) 28 POC Glucose (mg/dL) 151 H 122 H Random Glucose 98 Calcium 8.8 Assessment & Plan - Assessment and Plan (Free Text) Assessment: 77 yo Wm with pmh/o htn, dm, chf, cad , s/p stents, ckd dvt of left leg was admitted with b/l leg ulcers with oozing 1. anthony on ckd 2. hyperkalemia 3. b/l leg ulcers 4. htn repeat bmp consider gentle iv hydration low K +diet c/w iv abx as per ID Plan: as above
[2018-07-18] MEDS ORDERED: Oxycodone/Acetaminophen 5/325 mg Tab PO PRN (16:10)
[2018-07-18 16:47] LABS: CALCIUM 8.6 mg/dL (8.4-10.2)
[2018-07-18] MEDS: Benzocaine/Menthol (Cepacol) Lozenge PO PRN ×2 (16:48→22:35)
[2018-07-18] MEDS: Insulin Detemir 100 Units/ml Inj SC SCH (21:32)
[2018-07-19 07:37] LABS: ALB/GLOB RATIO 0.9 (1.0-2.1); ALBUMIN 3.2 g/dL (3.5-5.0); CALCIUM 8.7 mg/dL (8.4-10.2)
--- NOTE | 2018-07-19 11:12 | CP.PCM.PN ---
Subjective - Date & Time of Evaluation Date of Evaluation: 07/19/18 Time of Evaluation: 11:12 - Subjective Subjective: LEG PAINS IMPROVED DAUGHTER AT BEDSIDE AND CASE DISCUSSED WITH HER--SHE REQUESTS TCU PLACEMENT FOR NOW AND WILL DISCUS SUBACUTE CARE/ASSISTED LIVING WITH FACILITY SPECIALIST IN AM Objective - Vital Signs/Intake and Output Vital Signs (last 24 hours): Temp Pulse Resp BP Pulse Ox 97.9 F 83 20 118/75 96 07/19/18 08:46 07/19/18 08:46 07/19/18 08:46 07/19/18 08:46 07/19/18 08:46 - Medications Medications: Current Medications Apixaban (Eliquis) 2.5 mg PO BID [facility]; Protocol Last Admin: 07/19/18 08:21 Dose: 2.5 mg Atorvastatin Calcium (Lipitor) 20 mg PO DAILY [facility] Last Admin: 07/19/18 08:22 Dose: 20 mg Benzocaine/Menthol (Cepacol Sore Throat) 1 malika PO Q3 PRN PRN Reason: Sore Throat Last Admin: 07/18/18 22:35 Dose: 1 malika Insulin Detemir (Levemir) 5 units SC HS [facility] Last Admin: 07/18/18 21:32 Dose: 5 units Morphine Sulfate (Morphine) 2 mg IVP Q6 PRN PRN Reason: Pain, severe (8-10) Oxycodone/Acetaminophen (Percocet 5/325 Mg Tab) 1 tab PO Q4 PRN PRN Reason: Pain, moderate (4-7) Stop: 07/21/18 16:11 Last Admin: 07/18/18 16:46 Dose: 1 tab Promethazine HCl (Phenergan Syrup) 12.5 mg PO Q6 PRN PRN Reason: Cough Last Admin: 07/18/18 10:04 Dose: 12.5 mg Sitagliptin Phosphate (Januvia) 50 mg PO DAILY [facility] Last Admin: 07/19/18 08:21 Dose: 50 mg Zolpidem Tartrate (Ambien) 5 mg PO HS PRN PRN Reason: Insomnia Last Admin: 07/18/18 22:35 Dose: 5 mg - Labs Labs: 07/16/18 23:40 07/19/18 06:30 PT 14.2 Seconds (9.8-13.1) H 07/16/18 23:40 INR 1.3 07/16/18 23:40 APTT 32.1 Seconds (25.6-37.1) 07/16/18 23:40 - Constitutional Appears: Chronically Ill - Head Exam Head Exam: ATRAUMATIC, NORMAL INSPECTION, NORMOCEPHALIC - Eye Exam Eye Exam: EOMI, Normal appearance, PERRL Pupil Exam: NORMAL ACCOMODATION, PERRL - ENT Exam ENT Exam: Mucous Membranes Moist, Normal Exam - Neck Exam Neck Exam: Full ROM, Normal Inspection. absent: Lymphadenopathy - Respiratory Exam Respiratory Exam: Clear to Ausculation Bilateral, NORMAL BREATHING PATTERN - Cardiovascular Exam Cardiovascular Exam: Irregular Rhythm, +S1, +S2. absent: Murmur - GI/Abdominal Exam GI & Abdominal Exam: Soft, Normal Bowel Sounds. absent: Tenderness - Rectal Exam Rectal Exam: NORMAL INSPECTION - Extremities Exam Extremities Exam: Full ROM, Tenderness. absent: Joint Swelling, Pedal Edema Additional comments: CHRONIC LEG ULCERS - Back Exam Back Exam: NORMAL INSPECTION - Neurological Exam Neurological Exam: Abnormal Gait, Alert, Awake, CN II-XII Intact, Oriented x3 - Psychiatric Exam Psychiatric exam: Normal Affect, Normal Mood - Skin Skin Exam: Dry, Intact, Normal Color, Warm Assessment and Plan - Assessment and Plan (Free Text) Assessment: ARRYTHMIAS DM HYPERKALEMIA IMPROVED SEVERE PVD WITH LEG PAINS ASHD ACUTE ON CHRONIC KIDNEY DZ Plan: [employer]IPMENT RENTAL CLERK FOR PLACEMENT
[2018-07-19] MEDS: Insulin Detemir 100 Units/ml Inj SC SCH (22:44)
--- NOTE | 2018-07-20 09:47 | CP.PCM.PN ---
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 Objective - Vital Signs/Intake and Output Vital Signs (last 24 hours): Temp Pulse Resp BP Pulse Ox 97.9 F 71 20 110/72 98 07/20/18 08:00 07/20/18 08:00 07/20/18 08:00 07/20/18 08:00 07/20/18 08:00 - Medications Medications: Current Medications Apixaban (Eliquis) 2.5 mg PO BID [facility]; Protocol Last Admin: 07/19/18 17:11 Dose: 2.5 mg Atorvastatin Calcium (Lipitor) 20 mg PO DAILY [facility] Last Admin: 07/19/18 08:22 Dose: 20 mg Benzocaine/Menthol (Cepacol Sore Throat) 1 malika PO Q3 PRN PRN Reason: Sore Throat Last Admin: 07/18/18 22:35 Dose: 1 malika Insulin Detemir (Levemir) 5 units SC HS [facility] Last Admin: 07/19/18 22:44 Dose: 5 units Morphine Sulfate (Morphine) 2 mg IVP Q6 PRN PRN Reason: Pain, severe (8-10) Oxycodone/Acetaminophen (Percocet 5/325 Mg Tab) 1 tab PO Q4 PRN PRN Reason: Pain, moderate (4-7) Stop: 07/21/18 16:11 Last Admin: 07/18/18 16:46 Dose: 1 tab Promethazine HCl (Phenergan Syrup) 12.5 mg PO Q6 PRN PRN Reason: Cough Last Admin: 07/18/18 10:04 Dose: 12.5 mg Sitagliptin Phosphate (Januvia) 50 mg PO DAILY [facility] Last Admin: 07/19/18 08:21 Dose: 50 mg Zolpidem Tartrate (Ambien) 5 mg PO HS PRN PRN Reason: Insomnia Last Admin: 07/19/18 22:55 Dose: 5 mg - Labs Labs: 07/16/18 23:40 07/19/18 06:30 PT 14.2 Seconds (9.8-13.1) H 07/16/18 23:40 INR 1.3 07/16/18 23:40 APTT 32.1 Seconds (25.6-37.1) 07/16/18 23:40
[2018-07-20] MEDS: Promethazine 12.5 mg/10 ml Syrup PO PRN ×2 (11:10→21:26)
--- NOTE | 2018-07-20 12:42 | CP.PCM.PN ---
Subjective - Date & Time of Evaluation Date of Evaluation: 07/20/18 Time of Evaluation: 12:42 - Subjective Subjective: 77 years old male with history of hypertension, diabetes, DVT, chronic lower extremity ulcer and CHF presents to ER for evaluation of bilateral lower extremity ulcers , pain and oozing. pt is feeling slightly better, no cp, no sob, no cp Objective - Vital Signs/Intake and Output Vital Signs (last 24 hours): Temp Pulse Resp BP Pulse Ox 97.9 F 71 20 110/72 98 07/20/18 08:00 07/20/18 08:00 07/20/18 08:00 07/20/18 08:00 07/20/18 08:00 - Medications Medications: Current Medications Apixaban (Eliquis) 2.5 mg PO BID [facility]; Protocol Last Admin: 07/20/18 11:11 Dose: 2.5 mg Atorvastatin Calcium (Lipitor) 20 mg PO DAILY [facility] Last Admin: 07/20/18 11:11 Dose: 20 mg Benzocaine/Menthol (Cepacol Sore Throat) 1 malika PO Q3 PRN PRN Reason: Sore Throat Last Admin: 07/18/18 22:35 Dose: 1 malika Insulin Detemir (Levemir) 5 units SC HS [facility] Last Admin: 07/19/18 22:44 Dose: 5 units Morphine Sulfate (Morphine) 2 mg IVP Q6 PRN PRN Reason: Pain, severe (8-10) Oxycodone/Acetaminophen (Percocet 5/325 Mg Tab) 1 tab PO Q4 PRN PRN Reason: Pain, moderate (4-7) Stop: 07/21/18 16:11 Last Admin: 07/18/18 16:46 Dose: 1 tab Promethazine HCl (Phenergan Syrup) 12.5 mg PO Q6 PRN PRN Reason: Cough Last Admin: 07/20/18 11:10 Dose: 12.5 mg Sitagliptin Phosphate (Januvia) 50 mg PO DAILY [facility] Last Admin: 07/20/18 11:10 Dose: 50 mg Zolpidem Tartrate (Ambien) 5 mg PO HS PRN PRN Reason: Insomnia Last Admin: 07/19/18 22:55 Dose: 5 mg - Labs Labs: 07/16/18 23:40 07/19/18 06:30 PT 14.2 Seconds (9.8-13.1) H 07/16/18 23:40 INR 1.3 07/16/18 23:40 APTT 32.1 Seconds (25.6-37.1) 07/16/18 23:40 - Constitutional Appears: Well, No Acute Distress - Head Exam Head Exam: ATRAUMATIC, NORMAL INSPECTION, NORMOCEPHALIC - Eye Exam Eye Exam: EOMI, Normal appearance, PERRL Pupil Exam: NORMAL ACCOMODATION - ENT Exam ENT Exam: Mucous Membranes Moist - Neck Exam Neck Exam: Full ROM, Normal Inspection - Respiratory Exam Respiratory Exam: Clear to Ausculation Bilateral, NORMAL BREATHING PATTERN - Cardiovascular Exam Cardiovascular Exam: REGULAR RHYTHM, +S1, +S2 - GI/Abdominal Exam GI & Abdominal Exam: Soft, Normal Bowel Sounds - Rectal Exam Rectal Exam: Deferred - Extremities Exam Additional comments: b/l le ulcers , oozing, dressing to both legs+ - Neurological Exam Neurological Exam: Alert, Awake, CN II-XII Intact, Oriented x3 - Skin Skin Exam: Normal Color, Warm Assessment and Plan - Assessment and Plan (Free Text) Assessment: 77 yo Wm with pmh/o htn, dm, chf, cad , s/p stents, ckd dvt of left leg was admitted with b/l leg ulcers with oozing 1. anthony on ckd 2. hyperkalemia 3. b/l leg ulcers 4. htn repeat bmp consider gentle iv hydration low K +diet, k+ is wnl encourage po fluid intake c/w iv abx as per ID
--- NOTE | 2018-07-20 13:56 | CP.PCM.PN ---
Subjective - Date & Time of Evaluation Date of Evaluation: 07/20/18 Time of Evaluation: 13:53 - Subjective Subjective: Podiatry Progress Note for Dr. Jones 77 year old male patient seen and evaluated bedside for bilateral lower extremity ulcerations. Patient is AAOx3 and in NAD. Denies pain to the RLE however reports pain to the wound located on the anterior aspect of his L leg. Denies any new pedal complaints. Patient denies N/V/F/SOB. Objective - Vital Signs/Intake and Output Vital Signs (last 24 hours): Temp Pulse Resp BP Pulse Ox 98.1 F 82 20 124/75 97 07/20/18 12:00 07/20/18 13:14 07/20/18 12:00 07/20/18 13:14 07/20/18 12:00 - Medications Medications: Current Medications Apixaban (Eliquis) 2.5 mg PO BID [facility]; Protocol Last Admin: 07/20/18 11:11 Dose: 2.5 mg Atorvastatin Calcium (Lipitor) 20 mg PO DAILY [facility] Last Admin: 07/20/18 11:11 Dose: 20 mg Benzocaine/Menthol (Cepacol Sore Throat) 1 malika PO Q3 PRN PRN Reason: Sore Throat Last Admin: 07/18/18 22:35 Dose: 1 malika Insulin Detemir (Levemir) 5 units SC HS [facility] Last Admin: 07/19/18 22:44 Dose: 5 units Morphine Sulfate (Morphine) 2 mg IVP Q6 PRN PRN Reason: Pain, severe (8-10) Oxycodone/Acetaminophen (Percocet 5/325 Mg Tab) 1 tab PO Q4 PRN PRN Reason: Pain, moderate (4-7) Stop: 07/21/18 16:11 Last Admin: 07/18/18 16:46 Dose: 1 tab Promethazine HCl (Phenergan Syrup) 12.5 mg PO Q6 PRN PRN Reason: Cough Last Admin: 07/20/18 11:10 Dose: 12.5 mg Sitagliptin Phosphate (Januvia) 50 mg PO DAILY [facility] Last Admin: 07/20/18 11:10 Dose: 50 mg Zolpidem Tartrate (Ambien) 5 mg PO HS PRN PRN Reason: Insomnia Last Admin: 07/19/18 22:55 Dose: 5 mg - Labs Labs: 07/16/18 23:40 07/19/18 06:30 PT 14.2 Seconds (9.8-13.1) H 07/16/18 23:40 INR 1.3 07/16/18 23:40 APTT 32.1 Seconds (25.6-37.1) 07/16/18 23:40 - Constitutional Appears: Well, Non-toxic, No Acute Distress - Head Exam Head Exam: ATRAUMATIC, NORMOCEPHALIC - Extremities Exam Additional comments: Vasc: DP and PT pulses nonpalpable b/l. CFT <3 seconds to digits x10. TG cool to cool, no increase in warmth to areas of erythema. +1 pitting edema noted to foot and ankle b/l. Varicosities present. Ortho: Moderate pain on palpation to the wounds, no gross deformities noted. Neuro: Gross sensation intact bilaterally. Derm: LLE=2 x 2 x 0.2 cm ulceration noted to left anterior lower leg - ulcer extends down to subcutaneous tissue; no drainage noted; no purulence; no fluctuance; no undermining; no tunneling. Ulceration noted to posterior leg; no drainage; no purulence; no fluctuance; no undermining; no tunneling. Red/purple discoloration of leg extending from distal half of tibia extending into digits, not diminished with elevation of limb. RLE=Two abrasions noted to anterior tibia midleg with 100% granular base; no drainage; no purulence; no fluctuance; no undermining; no tunneling. Third abrasion noted to knee with no drainage, purulence, flucutance noted. Erythema noted midleg extending into digits which is diminished with elevation of limb. - Neurological Exam Neurological Exam: Alert, Awake, Oriented x3 - Psychiatric Exam Psychiatric exam: Normal Affect, Normal Mood Assessment and Plan - Assessment and Plan (Free Text) Assessment: 77yo male patient, seen and evaluated, for bilateral lower extremity ulcerations Plan: Patient seen and evaluated, discussed with attending, Dr. Jones Afkrisrisanya, NNL Arterial duplex ordered (07/16); No evidence of critical stenosis or occlusive disease Venous duplex (07/16); No evidence of DVT No evidence of cellulitis at this time, will continue to monitor Local wound care: ABIODUN Locke - Reccs per Fito's nursing note Pending d/c patient to follow up with Dr. Jones in the wound care center Will continue to follow while in house
[2018-07-20] MEDS: Insulin Detemir 100 Units/ml Inj SC SCH (21:25)
[2018-07-21] MEDS: Promethazine 12.5 mg/10 ml Syrup PO PRN ×2 (05:18→22:59)
--- NOTE | 2018-07-21 08:49 | CP.PCM.PN ---
Subjective - Date & Time of Evaluation Date of Evaluation: 07/21/18 Time of Evaluation: 08:51 - Subjective Subjective: LEG PAINS IMPROVED WITH CURRENT THERAPY STRESS TEST COMPLETED--RESULTS PENDING Objective - Vital Signs/Intake and Output Vital Signs (last 24 hours): Temp Pulse Resp BP Pulse Ox 98.1 F 79 18 115/76 97 07/21/18 08:05 07/21/18 08:05 07/21/18 08:05 07/21/18 08:05 07/21/18 08:05 - Medications Medications: Current Medications Apixaban (Eliquis) 2.5 mg PO BID [facility]; Protocol Last Admin: 07/20/18 16:59 Dose: 2.5 mg Atorvastatin Calcium (Lipitor) 20 mg PO DAILY [facility] Last Admin: 07/20/18 11:11 Dose: 20 mg Benzocaine/Menthol (Cepacol Sore Throat) 1 malika PO Q3 PRN PRN Reason: Sore Throat Last Admin: 07/18/18 22:35 Dose: 1 malika Insulin Detemir (Levemir) 5 units SC HS [facility] Last Admin: 07/20/18 21:25 Dose: 5 units Morphine Sulfate (Morphine) 2 mg IVP Q6 PRN PRN Reason: Pain, severe (8-10) Oxycodone/Acetaminophen (Percocet 5/325 Mg Tab) 1 tab PO Q4 PRN PRN Reason: Pain, moderate (4-7) Stop: 07/21/18 16:11 Last Admin: 07/18/18 16:46 Dose: 1 tab Promethazine HCl (Phenergan Syrup) 12.5 mg PO Q6 PRN PRN Reason: Cough Last Admin: 07/21/18 05:18 Dose: 12.5 mg Sitagliptin Phosphate (Januvia) 50 mg PO DAILY [facility] Last Admin: 07/20/18 11:10 Dose: 50 mg Zolpidem Tartrate (Ambien) 5 mg PO HS PRN PRN Reason: Insomnia Last Admin: 07/20/18 22:49 Dose: 5 mg - Labs Labs: 07/16/18 23:40 07/19/18 06:30 PT 14.2 Seconds (9.8-13.1) H 07/16/18 23:40 INR 1.3 07/16/18 23:40 APTT 32.1 Seconds (25.6-37.1) 07/16/18 23:40 - Constitutional Appears: No Acute Distress - Head Exam Head Exam: ATRAUMATIC, NORMAL INSPECTION, NORMOCEPHALIC - Eye Exam Eye Exam: EOMI, Normal appearance, PERRL Pupil Exam: NORMAL ACCOMODATION, PERRL - ENT Exam ENT Exam: Mucous Membranes Moist, Normal Exam - Neck Exam Neck Exam: Full ROM, Normal Inspection. absent: Lymphadenopathy - Respiratory Exam Respiratory Exam: Clear to Ausculation Bilateral, NORMAL BREATHING PATTERN - Cardiovascular Exam Cardiovascular Exam: REGULAR RHYTHM, +S1, +S2. absent: Murmur - GI/Abdominal Exam GI & Abdominal Exam: Soft, Normal Bowel Sounds. absent: Tenderness - Rectal Exam Rectal Exam: NORMAL INSPECTION - Extremities Exam Extremities Exam: Full ROM. 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
[2018-07-21] MEDS: Benzocaine/Menthol (Cepacol) Lozenge PO PRN ×2 (09:02→23:00)
[2018-07-21 09:55] LABS: CALCIUM 8.9 mg/dL (8.4-10.2)
--- NOTE | 2018-07-21 10:50 | CP.PCM.PN ---
Subjective - Date & Time of Evaluation Date of Evaluation: 07/21/18 Time of Evaluation: 10:49 - Subjective Subjective: Podiatry Progress Note for Dr. Jones 77 yo male patient, seen and evaluated, for B/L lower extremity ulcerations; stable. Patient is resting comfortably and in NAD. B/L lower extremity dressings clean, dry intact. Denies N/V/F/CP. Objective - Vital Signs/Intake and Output Vital Signs (last 24 hours): Temp Pulse Resp BP Pulse Ox 98.1 F 79 18 115/76 97 07/21/18 08:05 07/21/18 08:05 07/21/18 08:05 07/21/18 08:05 07/21/18 08:05 - Medications Medications: Current Medications Apixaban (Eliquis) 2.5 mg PO BID [facility]; Protocol Last Admin: 07/21/18 09:02 Dose: 2.5 mg Atorvastatin Calcium (Lipitor) 20 mg PO DAILY [facility] Last Admin: 07/21/18 09:03 Dose: 20 mg Benzocaine/Menthol (Cepacol Sore Throat) 1 malika PO Q3 PRN PRN Reason: Sore Throat Last Admin: 07/21/18 09:02 Dose: 1 malika Insulin Detemir (Levemir) 5 units SC HS [facility] Last Admin: 07/20/18 21:25 Dose: 5 units Morphine Sulfate (Morphine) 2 mg IVP Q6 PRN PRN Reason: Pain, severe (8-10) Oxycodone/Acetaminophen (Percocet 5/325 Mg Tab) 1 tab PO Q4 PRN PRN Reason: Pain, moderate (4-7) Stop: 07/21/18 16:11 Last Admin: 07/18/18 16:46 Dose: 1 tab Promethazine HCl (Phenergan Syrup) 12.5 mg PO Q6 PRN PRN Reason: Cough Last Admin: 07/21/18 05:18 Dose: 12.5 mg Sitagliptin Phosphate (Januvia) 50 mg PO DAILY [facility] Last Admin: 07/21/18 09:02 Dose: 50 mg Zolpidem Tartrate (Ambien) 5 mg PO HS PRN PRN Reason: Insomnia Last Admin: 07/20/18 22:49 Dose: 5 mg - Labs Labs: 07/16/18 23:40 07/21/18 09:38 PT 14.2 Seconds (9.8-13.1) H 07/16/18 23:40 INR 1.3 07/16/18 23:40 APTT 32.1 Seconds (25.6-37.1) 07/16/18 23:40 - Constitutional Appears: Well, Non-toxic, No Acute Distress - Head Exam Head Exam: ATRAUMATIC, NORMOCEPHALIC - Extremities Exam Additional comments: Vasc: DP and PT pulses nonpalpable b/l. CFT <3 seconds to digits x10. TG cool to cool, no increase in warmth to areas of erythema. +1 pitting edema noted to foot and ankle b/l. Varicosities present. Ortho: Moderate pain on palpation to the wounds, no gross deformities noted. Neuro: Gross sensation intact bilaterally. Derm:LLE=ulceration, measuring approximately 2 x 2 x 0.2 cm , noted to left anterior lower leg, no drainage, no purulence, no tunneling, no tracking, no probing. Ulceration noted to posterior leg; no drainage; no purulence; no undermining; no tunneling. Red/purple discoloration of leg extending from distal half of tibia extending into digits, not diminished with elevation of limb. RLE=Two abrasions noted to anterior tibia midleg with 100% granular base; no drainage, no purulence, no fluctuance, no undermining, no tunneling. Third abrasion noted to knee with no drainage, purulence, flucutance noted. Erythema noted midleg extending into digits which is diminished with elevation of limb. - Neurological Exam Neurological Exam: Alert, Awake, Oriented x3 - Psychiatric Exam Psychiatric exam: Normal Affect, Normal Mood Assessment and Plan - Assessment and Plan (Free Text) Assessment: 77 yo male patient, seen and evaluated, for B/L lower extremity ulcerations; stable. Plan: Patient seen and evaluated, discussed with attending, Dr. Jones Afebrile, NNL Arterial duplex ordered (07/16); No evidence of critical stenosis or occlusive disease Venous duplex (07/16); No evidence of DVT Dressings left clean, dry, intact to b/l lower extremities Local wound care per Fito's nursing notes: ABIODUN Locke Per Dr. Savage: surgical services coordinator for transfer to subacute care Pending d/c patient to follow up with Dr. Jones in the wound care center Will continue to follow while in house
--- NOTE | 2018-07-21 12:08 | CP.PCM.PN ---
Subjective - Date & Time of Evaluation Date of Evaluation: 07/21/18 Time of Evaluation: 12:08 - Subjective Subjective: 77 years old male with history of hypertension, diabetes, DVT, chronic lower extremity ulcer and CHF presents to ER for evaluation of bilateral lower extremity ulcers , pain and oozing. no complaints, sleepy Objective - Vital Signs/Intake and Output Vital Signs (last 24 hours): Temp Pulse Resp BP Pulse Ox 98.1 F 79 18 115/76 97 07/21/18 08:05 07/21/18 09:00 07/21/18 08:05 07/21/18 08:05 07/21/18 08:05 - Medications Medications: Current Medications Apixaban (Eliquis) 2.5 mg PO BID [facility]; Protocol Last Admin: 07/21/18 09:02 Dose: 2.5 mg Atorvastatin Calcium (Lipitor) 20 mg PO DAILY [facility] Last Admin: 07/21/18 09:03 Dose: 20 mg Benzocaine/Menthol (Cepacol Sore Throat) 1 malika PO Q3 PRN PRN Reason: Sore Throat Last Admin: 07/21/18 09:02 Dose: 1 malika Insulin Detemir (Levemir) 5 units SC HS [facility] Last Admin: 07/20/18 21:25 Dose: 5 units Morphine Sulfate (Morphine) 2 mg IVP Q6 PRN PRN Reason: Pain, severe (8-10) Oxycodone/Acetaminophen (Percocet 5/325 Mg Tab) 1 tab PO Q4 PRN PRN Reason: Pain, moderate (4-7) Stop: 07/21/18 16:11 Last Admin: 07/18/18 16:46 Dose: 1 tab Promethazine HCl (Phenergan Syrup) 12.5 mg PO Q6 PRN PRN Reason: Cough Last Admin: 07/21/18 05:18 Dose: 12.5 mg Sitagliptin Phosphate (Januvia) 50 mg PO DAILY [facility] Last Admin: 07/21/18 09:02 Dose: 50 mg Zolpidem Tartrate (Ambien) 5 mg PO HS PRN PRN Reason: Insomnia Last Admin: 07/20/18 22:49 Dose: 5 mg - Labs Labs: 07/16/18 23:40 07/21/18 09:38 PT 14.2 Seconds (9.8-13.1) H 07/16/18 23:40 INR 1.3 07/16/18 23:40 APTT 32.1 Seconds (25.6-37.1) 07/16/18 23:40 - Constitutional Appears: Well, Non-toxic, No Acute Distress - Head Exam Head Exam: ATRAUMATIC, NORMAL INSPECTION, NORMOCEPHALIC - Eye Exam Eye Exam: EOMI, Normal appearance, PERRL Pupil Exam: NORMAL ACCOMODATION - ENT Exam ENT Exam: Mucous Membranes Moist - Respiratory Exam Respiratory Exam: Clear to Ausculation Bilateral, NORMAL BREATHING PATTERN - Cardiovascular Exam Cardiovascular Exam: REGULAR RHYTHM, +S1, +S2 - GI/Abdominal Exam GI & Abdominal Exam: Soft, Normal Bowel Sounds - Rectal Exam Rectal Exam: Deferred - Extremities Exam Additional comments: dressing to both legs+ - Neurological Exam Additional comments: sleepy, following commands appropriately Assessment and Plan - Assessment and Plan (Free Text) Assessment: 77 yo Wm with pmh/o htn, dm, chf, cad , s/p stents, ckd dvt of left leg was admitted with b/l leg ulcers with oozing 1. anthony on ckd 2. hyperkalemia 3. b/l leg ulcers 4. htn renal function is slightly better since admission consider iv hydration low K +diet encourage po fluid intake c/w iv abx as per ID
[2018-07-21] MEDS: Insulin Detemir 100 Units/ml Inj SC SCH (23:00)
--- NOTE | 2018-07-22 06:46 | CP.PCM.PN ---
<Trang Saunders - Last Filed: 07/22/18 17:40> Subjective - Date & Time of Evaluation Date of Evaluation: 07/22/18 Time of Evaluation: 06:46 - Subjective Subjective: Podiatry Progress Note for Dr. Jones: 77 yo male patient, seen and evaluated, for B/L lower extremity ulcerations; stable. Patientis AAOx3 and in NAD. He states he is going for a heart procedure today. Denies N/V/F/CP. Objective - Vital Signs/Intake and Output Vital Signs (last 24 hours): Temp Pulse Resp BP Pulse Ox 98.2 F 87 17 126/77 98 07/22/18 05:00 07/22/18 05:00 07/22/18 05:00 07/22/18 05:00 07/22/18 05:00 - Medications Medications: Current Medications Apixaban (Eliquis) 2.5 mg PO BID [facility]; Protocol Last Admin: 07/21/18 17:59 Dose: 2.5 mg Atorvastatin Calcium (Lipitor) 20 mg PO DAILY [facility] Last Admin: 07/21/18 09:03 Dose: 20 mg Benzocaine/Menthol (Cepacol Sore Throat) 1 malika PO Q3 PRN PRN Reason: Sore Throat Last Admin: 07/21/18 23:00 Dose: 1 malika Insulin Detemir (Levemir) 5 units SC HS [facility] Last Admin: 07/21/18 23:00 Dose: 5 units Morphine Sulfate (Morphine) 2 mg IVP Q6 PRN PRN Reason: Pain, severe (8-10) Promethazine HCl (Phenergan Syrup) 12.5 mg PO Q6 PRN PRN Reason: Cough Last Admin: 07/21/18 22:59 Dose: 12.5 mg Sitagliptin Phosphate (Januvia) 50 mg PO DAILY [facility] Last Admin: 07/21/18 09:02 Dose: 50 mg Zolpidem Tartrate (Ambien) 5 mg PO HS PRN PRN Reason: Insomnia Last Admin: 07/21/18 22:59 Dose: 5 mg - Labs Labs: 07/16/18 23:40 07/21/18 09:38 PT 14.2 Seconds (9.8-13.1) H 07/16/18 23:40 INR 1.3 07/16/18 23:40 APTT 32.1 Seconds (25.6-37.1) 07/16/18 23:40 - Constitutional Appears: Well, Non-toxic, No Acute Distress - Head Exam Head Exam: ATRAUMATIC, NORMOCEPHALIC - Extremities Exam Additional comments: Vasc: DP and PT pulses nonpalpable b/l. CFT <3 seconds to digits x10. TG cool to cool, no increase in warmth to areas of erythema. +1 pitting edema noted to foot and ankle b/l. Varicosities present. Ortho: Moderate pain on palpation to the wounds, no gross deformities noted. Neuro: Gross sensation intact bilaterally. Derm:LLE=ulceration, measuring approximately 2 x 2 x 0.2 cm , noted to left anterior lower leg, no drainage, no purulence, no tunneling, no tracking, no probing. Ulceration noted to posterior leg; no drainage; no purulence; no undermining; no tunneling. RLE=Two abrasions noted to anterior tibia midleg with 100% granular base; no drainage, no purulence, no fluctuance, no undermining, no tunneling. Erythema noted midleg extending into digits which is diminished with elevation of limb. Xerosis noted to b/l lower extremities - Neurological Exam Neurological Exam: Alert, Awake, Oriented x3 - Psychiatric Exam Psychiatric exam: Normal Affect, Normal Mood Assessment and Plan - Assessment and Plan (Free Text) Assessment: 77 yo male patient, seen and evaluated, for B/L lower extremity ulcerations; stable. Plan: Patient seen and evaluated, discussed with attending, Dr. Jones Afebrile, NNL Arterial duplex ordered (07/16); No evidence of critical stenosis or occlusive disease Venous duplex (07/16); No evidence of DVT [place] [facility] [place] ABIODUN Locke Per Dr. Savage: social human services assistants for transfer to subacute care, Pending d/c patient to follow up with Dr. Jones in the wound care center Patient to go for cardiac cath today Will continue to follow while in house <Robbie Jones - Last Filed: 07/28/18 09:03> Objective - Vital Signs/Intake and Output Vital Signs (last 24 hours): Temp Pulse Resp BP Pulse Ox 98.7 F 85 20 121/70 96 07/23/18 15:57 07/23/18 15:57 10/25/18 15:57 07/23/18 15:57 07/23/18 15:57 - Labs Labs: 07/23/18 05:00 07/23/18 05:00 PT 14.2 Seconds (9.8-13.1) H 07/16/18 23:40 INR 1.3 07/16/18 23:40 APTT 32.1 Seconds (25.6-37.1) 07/16/18 23:40 Assessment and Plan - Assessment and Plan (Free Text) Plan: Pt is well known to me from my office. Patient has long standing history of ulcerations to the legs. Discussed with resident above to continue local wound care at this time. Local wound care to continue after patient has cardiac cath as well. Patient is unable to tolerate compressive bandages in past and took them off. Will follow while in house.
[2018-07-22] MEDS ORDERED: Dextrose 50% SYRINGE Inj (50 ml) IVP ONE (11:14)
--- NOTE | 2018-07-22 11:18 | CP.PCM.PN ---
Subjective - Date & Time of Evaluation Date of Evaluation: 07/22/18 Time of Evaluation: 11:18 - Subjective Subjective: LESS LEG PAIN VSS Objective - Vital Signs/Intake and Output Vital Signs (last 24 hours): Temp Pulse Resp BP Pulse Ox 98.1 F 85 18 116/79 98 07/22/18 07:59 07/22/18 07:59 07/22/18 07:59 07/22/18 07:59 07/22/18 07:59 - Medications Medications: Current Medications Apixaban (Eliquis) 2.5 mg PO BID [facility]; Protocol Last Admin: 07/22/18 08:53 Dose: Not Given Atorvastatin Calcium (Lipitor) 20 mg PO DAILY [facility] Last Admin: 07/22/18 08:54 Dose: Not Given Benzocaine/Menthol (Cepacol Sore Throat) 1 malika PO Q3 PRN PRN Reason: Sore Throat Last Admin: 07/21/18 23:00 Dose: 1 malika Dextrose (Dextrose 50% Inj) 50 ml IVP ONCE ONE Stop: 07/22/18 11:15 Dextrose/Sodium Chloride (Dextrose 5%-0.45% Ns 500 Ml) 1,000 mls @ 60 mls/hr IV .[id number] [facility] Stop: 07/23/18 10:48 Last Admin: 07/22/18 11:07 Dose: 60 mls/hr Insulin Detemir (Levemir) 5 units SC HS [facility] Last Admin: 07/21/18 23:00 Dose: 5 units Morphine Sulfate (Morphine) 2 mg IVP Q6 PRN PRN Reason: Pain, severe (8-10) Promethazine HCl (Phenergan Syrup) 12.5 mg PO Q6 PRN PRN Reason: Cough Last Admin: 07/21/18 22:59 Dose: 12.5 mg Sitagliptin Phosphate (Januvia) 50 mg PO DAILY [facility] Last Admin: 07/22/18 08:53 Dose: Not Given Zolpidem Tartrate (Ambien) 5 mg PO HS PRN PRN Reason: Insomnia Last Admin: 07/21/18 22:59 Dose: 5 mg - Labs Labs: 07/16/18 23:40 07/21/18 09:38 PT 14.2 Seconds (9.8-13.1) H 07/16/18 23:40 INR 1.3 07/16/18 23:40 APTT 32.1 Seconds (25.6-37.1) 07/16/18 23:40 - Constitutional Appears: Chronically Ill - Head Exam Head Exam: ATRAUMATIC, NORMAL INSPECTION, NORMOCEPHALIC - Eye Exam Eye Exam: EOMI, Normal appearance, PERRL Pupil Exam: NORMAL ACCOMODATION, PERRL - ENT Exam ENT Exam: Mucous Membranes Moist, Normal Exam - Neck Exam Neck Exam: Full ROM, Normal Inspection. absent: Lymphadenopathy - Respiratory Exam Respiratory Exam: Clear to Ausculation Bilateral, NORMAL BREATHING PATTERN - Cardiovascular Exam Cardiovascular Exam: REGULAR RHYTHM, +S1, +S2. absent: Murmur - GI/Abdominal Exam GI & Abdominal Exam: Soft, Normal Bowel Sounds. absent: Tenderness - Rectal Exam Rectal Exam: NORMAL INSPECTION - Extremities Exam Extremities Exam: Full ROM. absent: Joint Swelling, Pedal Edema Additional comments: CHRONIC LEG ULCERS - Back Exam Back Exam: NORMAL INSPECTION - Neurological Exam Neurological Exam: Abnormal Gait, Alert, Awake, CN II-XII Intact, Oriented x3 - Psychiatric Exam Psychiatric exam: Normal Affect, Normal Mood - Skin Skin Exam: Dry, Warm Additional comments: LEG ULCERS Assessment and Plan - Assessment and Plan (Free Text) Assessment: SEVERE PERIPHERAL VASCULAR DZ DM[SERUM GLU SLIGHTLY LOW] ASHD Plan: SCHEDULED FOR CARDIAC CATH TODAY TO EVALUATE CORONARY ARTERIES
--- NOTE | 2018-07-22 13:36 | CARD ---
APPROVED REPORT Date of service: 07/17/2018 Protocol: Lexiscan Test Type: Stress nuclear Medications: ELIQUIS 2.5MG LIPITOR 20MG LEVEMIR 5UNITS JANUVIA 50MG AMBIEN 5MG Medical History: HEARING AID, CHF, DIABETIC, CAD, HTN, PVD, KIDNEY DISEASE, HYPERKALEMIA, ANKLE AND LEFT KNEE SURGERY, SMOKER, SEIZURES Target HR: 143 bpm Resting ECG: normal Resting Heart Rate: 63 bpm Resting Blood Pressure: 145/65mmHg submaximum (85%): 122 bpm TEST SUMMARY [id number]. INJECTIONNS FLUSH00:[id number]. INJECTIONNUC MED00:[id number]. [id number]. PROCEDURE Pharmacologic stress testing was performed using 0.4mg per 5ml of regadenoson given intravenously over 7-10 seconds. POST EXERCISE Reason for Termination: Fatigue Target HR: No Max HR: 63 bpm 60% of Maximum Predicted HR: 143 bpm Exercise duration: 00:47 min:sec, 0 Stage Exercise capacity: 1.0METs Max Blood Pressure: 145/64mmHg Blood Pressure response to exercise: N/A Heart Rate response to exercise: N/A Chest Pain: No, none Angina index: 0 Arrhythmia: Yes, ventricular premature beats-pairs ST Change: No, none Deviation: 0 mm EXAM: Myocardial Perfusion REST/STRESS Image QualityGood Imaging Protocol The imaging protocol used to acquire images was Rest Tc-99m/stress Tc-99m 1 day Rest Spect myocardial perfusion imaging was performed in supine position 60 minutes following the injection of 10 mCi of Tc-99 Myoview. Time of rest injection: 7:31 Time of rest imagin:30 At peak stress, the patient was injected intravenously with 30mCi of Tc-99 tetrofosmin after an infusion time of minutes and seconds. Time of stress injection: 10;32 Time of stress imagin:40 Gated Stress Spect was performed 66 minutes after intravenous Tc-99 Myoview injection. The images were gated to evaluate regional wall motion and calculate ventricular ejection fraction. NUCLEAR IMAGE INTERPRETATION Study quality was excellent. Left Ventricular size was Normal at Rest and Stress. Lung uptake was Normal. Left Ventricular ejection fraction is 46%. LV Perfusion 1 Perfusion Defect Location: mid anteroseptal Perfusion Defect Size: Medium (3-4 segments) Perfusion Defect Severity: Moderate Type of Perfusion Defect: Partially Reversible CONCLUSION 1. - Medium sized moderate intensity partially reversible defect involvng the anteroseptal wall 2. - Mild LV systolic dysfunction Recommendation - Will need further evaluation with invasive cardiac work up - GDMT for CAD and CHF
[2018-07-22] MEDS: Insulin Detemir 100 Units/ml Inj SC SCH (21:31)
[2018-07-23 05:34] LABS: MEAN CELL VOLUME 95.6 fl (80.0-94.0); MEAN CORPUSCULAR HEMOGLOBIN 31.4 pg (27.0-31.0); MEAN CORPUSCULAR HGB CONC 32.9 g/dL (33.0-37.0); RBC 4.46 Mil/uL (4.40-5.90); RED CELL DISTRIBUTION WIDTH 18.1 % (11.5-14.5); WHITE BLOOD COUNT 7.1 K/uL (4.8-10.8)
[2018-07-23 06:18] LABS: CALCIUM 8.3 mg/dL (8.4-10.2)
[2018-07-23] MEDS: Dextrose 5%/0.45% NS 1,000 ML IV SCH (10:00)
--- NOTE | 2018-07-23 11:29 | CP.PCM.PN ---
Subjective - Date & Time of Evaluation Date of Evaluation: 07/23/18 Time of Evaluation: 11:30 - Subjective Subjective: FEELS BETTER NO APPARENT DISTRESS Objective - Vital Signs/Intake and Output Vital Signs (last 24 hours): Temp Pulse Resp BP Pulse Ox 97.8 F 66 18 109/72 96 07/23/18 08:09 07/23/18 08:09 07/23/18 08:09 07/23/18 08:09 07/23/18 08:09 - Medications Medications: Current Medications Apixaban (Eliquis) 2.5 mg PO BID [facility]; Protocol Last Admin: 07/22/18 08:53 Dose: Not Given Atorvastatin Calcium (Lipitor) 20 mg PO DAILY [facility] Last Admin: 07/23/18 10:03 Dose: 20 mg Benzocaine/Menthol (Cepacol Sore Throat) 1 malika PO Q3 PRN PRN Reason: Sore Throat Last Admin: 07/21/18 23:00 Dose: 1 malika Insulin Detemir (Levemir) 5 units SC HS [facility] Last Admin: 07/22/18 21:31 Dose: Not Given Morphine Sulfate (Morphine) 2 mg IVP Q6 PRN PRN Reason: Pain, severe (8-10) Promethazine HCl (Phenergan Syrup) 12.5 mg PO Q6 PRN PRN Reason: Cough Last Admin: 07/21/18 22:59 Dose: 12.5 mg Sitagliptin Phosphate (Januvia) 50 mg PO DAILY [facility] Last Admin: 07/23/18 10:03 Dose: 50 mg Zolpidem Tartrate (Ambien) 5 mg PO HS PRN PRN Reason: Insomnia Last Admin: 07/21/18 22:59 Dose: 5 mg - Labs Labs: 07/23/18 05:00 07/23/18 05:00 PT 14.2 Seconds (9.8-13.1) H 07/16/18 23:40 INR 1.3 07/16/18 23:40 APTT 32.1 Seconds (25.6-37.1) 07/16/18 23:40 - Constitutional Appears: No Acute Distress - Head Exam Head Exam: ATRAUMATIC, NORMAL INSPECTION, NORMOCEPHALIC - Eye Exam Eye Exam: EOMI, Normal appearance, PERRL Pupil Exam: NORMAL ACCOMODATION, PERRL - ENT Exam ENT Exam: Mucous Membranes Moist, Normal Exam - Neck Exam Neck Exam: Full ROM, Normal Inspection. absent: Lymphadenopathy - Respiratory Exam Respiratory Exam: Clear to Ausculation Bilateral, NORMAL BREATHING PATTERN - Cardiovascular Exam Cardiovascular Exam: REGULAR RHYTHM, +S1, +S2. absent: Murmur - GI/Abdominal Exam GI & Abdominal Exam: Soft, Normal Bowel Sounds. absent: Tenderness - Rectal Exam Rectal Exam: NORMAL INSPECTION - Extremities Exam Extremities Exam: Full ROM, Normal Capillary Refill, Normal Inspection. absent: Joint Swelling, Pedal Edema Additional comments: CHRONIC LEG ULCERS - Back Exam Back Exam: NORMAL INSPECTION - Neurological Exam Neurological Exam: Alert, Awake, CN II-XII Intact - Psychiatric Exam Psychiatric exam: Normal Affect, Normal Mood - Skin Skin Exam: Dry, Intact, Normal Color, Warm Assessment and Plan - Assessment and Plan (Free Text) Assessment: SEVERE PERIPHERAL; VASCULAR DZ CARDIAC CATH PROVEN CORONARY ARTERY DZ HYPERKALEMIA-IMPROVED CHRONIC KIDNEY DZ-STABLE Plan: CASE DISCUSSED WITH POMOLOGY TEACHER HE WILL DISCUS FURTHER MANAGEMENT WITH PT AND HIS DAUGHTER PT WILL BE TRANSFERRED TO TRANSITIONAL CARE TODAY
--- NOTE | 2018-07-23 11:33 | CP.PCM.DIS ---
Provider - Provider Date of Admission: 07/17/18 00:55 Attending physician: Mirza Savage MD Time Spent in preparation of Discharge (in minutes): 35 Diagnosis - Discharge Diagnosis (1) Chronic ulcer of lower extremity Status: Acute (2) Hyperkalemia Status: Acute (3) Lower extremity pain Status: Acute (4) Arthritis Status: Acute (5) Atrial flutter Status: Acute (6) Essential (primary) hypertension Status: Acute Hospital Course - Lab Results Lab Results: Micro Results 07/16/18 23:15 Blood-Venous Blood Culture - Final NO GROWTH AFTER 5 DAYS 07/16/18 23:15 Blood-Venous Gram Stain - Final TEST NOT PERFORMED 07/16/18 23:40 Blood-Venous Blood Culture - Final NO GROWTH AFTER 5 DAYS 07/16/18 23:40 Blood-Venous Gram Stain - Final TEST NOT PERFORMED Most Recent Lab Values WBC 7.1 K/uL (4.8-10.8) 07/23/18 05:00 RBC 4.46 Mil/uL (4.40-5.90) 07/23/18 05:00 Hgb 14.0 g/dL (12.0-18.0) 07/23/18 05:00 Hct 42.7 % (35.0-51.0) 07/23/18 05:00 MCV 95.6 fl (80.0-94.0) H 07/23/18 05:00 MCH 31.4 pg (27.0-31.0) H 07/23/18 05:00 MCHC 32.9 g/dL (33.0-37.0) L 07/23/18 05:00 RDW 18.1 % (11.5-14.5) H 07/23/18 05:00 Plt Count 153 K/uL (130-400) 07/23/18 05:00 MPV 10.1 fl (7.2-11.7) 07/16/18 23:40 Neut % (Auto) 81.0 % (50.0-75.0) H 07/16/18 23:40 Lymph % (Auto) 5.3 % (20.0-40.0) L 07/16/18 23:40 [place] % (Auto) 9.8 % (0.0-10.0) 07/16/18 23:40 Eos % (Auto) 3.0 % (0.0-4.0) 07/16/18 23:40 Baso % (Auto) 0.9 % (0.0-2.0) 07/16/18 23:40 Neut # (Auto) 7.1 K/uL (1.8-7.0) H 07/16/18 23:40 Lymph # (Auto) 0.5 K/uL (1.0-4.3) L 07/16/18 23:40 [place] # (Auto) 0.9 K/uL (0.0-0.8) H 07/16/18 23:40 Eos # (Auto) 0.3 K/uL (0.0-0.7) 07/16/18 23:40 Baso # (Auto) 0.1 K/uL (0.0-0.2) 07/16/18 23:40 Neutrophils % (Manual) 84 % (42-75) H 07/16/18 23:40 Band Neutrophils % 2 % (0-2) 07/16/18 23:40 Lymphocytes % (Manual) 9 % (20-50) L 07/16/18 23:40 Reactive Lymphs % 1 % (0-0) H 07/16/18 23:40 Monocytes % (Manual) 4 % (0-10) 07/16/18 23:40 Platelet Estimate Normal (NORMAL) 07/16/18 23:40 Anisocytosis (manual) Slight 07/16/18 23:40 Tear Drop Cells Slight 07/16/18 23:40 Ovalocytes Slight 07/16/18 23:40 PT 14.2 Seconds (9.8-13.1) H 07/16/18 23:40 INR 1.3 07/16/18 23:40 APTT 32.1 Seconds (25.6-37.1) 07/16/18 23:40 Sodium 130 mmol/l (132-148) L 07/23/18 05:00 Potassium 4.3 MMOL/L (3.6-5.0) 07/23/18 05:00 Chloride 97 mmol/L (98-107) L 07/23/18 05:00 Carbon Dioxide 22 mmol/L (22-30) 07/23/18 05:00 Anion Gap 15 (10-20) 07/23/18 05:00 BUN 74 mg/dl (9-20) H 07/23/18 05:00 Creatinine 1.4 mg/dl (0.8-1.5) 07/23/18 05:00 Est GFR ( Amer) 59 07/23/18 05:00 Est GFR (Non-Af Amer) 49 07/23/18 05:00 POC Glucose (mg/dL) 134 mg/dL (65-110) H 07/23/18 05:39 Random Glucose 143 mg/dL (75-110) H 07/23/18 05:00 Lactic Acid 0.6 MMOL/L (0.7-2.1) L 07/16/18 23:40 Calcium 8.3 mg/dL (8.4-10.2) L 07/23/18 05:00 Total Bilirubin 0.6 mg/dl (0.2-1.3) 07/19/18 06:30 AST 39 U/L (17-59) 07/19/18 06:30 ALT 36 U/L (21-72) 07/19/18 06:30 Alkaline Phosphatase 150 U/L (38-126) H 07/19/18 06:30 NT-Pro-B Natriuret Pep 26719 pg/ml (0-900) H 07/17/18 09:11 Total Protein 6.8 G/DL (6.3-8.2) 07/19/18 06:30 Albumin 3.2 g/dL (3.5-5.0) L 07/19/18 06:30 Globulin 3.5 gm/dL (2.2-3.9) 07/19/18 06:30 Albumin/Globulin Ratio 0.9 (1.0-2.1) L 07/19/18 06:30 - Hospital Course Hospital Course: LEG PAINS IMPROVED HYPERKALEMIA-IMPROVED CARDIAC CATH RESULTS REVIEWED WITH FITNESS AND WELLNESS COORDINATOR--HE WILL DISCUS FURTHER MANAGEMENT WITH PT AND DAUGHTER Discharge Exam - Head Exam Head Exam: ATRAUMATIC, NORMAL INSPECTION, NORMOCEPHALIC - Eye Exam Eye Exam: EOMI, Normal appearance, PERRL Pupil Exam: NORMAL ACCOMODATION, PERRL - GI/Abdominal Exam GI & Abdominal Exam: Normal Bowel Sounds - Rectal Exam Rectal Exam: NORMAL INSPECTION - Extremities Exam Additional comments: CHRONIC LEG ULCERS - Neurological Exam Neurological exam: Abnormal Gait, Alert, CN II-XII Intact, Oriented x3, Reflexes Normal - Psychiatric Exam Psychiatric exam: Flat Affect, Normal Mood - Skin Skin Exam: Dry, Intact, Normal Color, Warm Discharge Plan - Follow Up Plan Condition: FAIR Disposition: HOME/ ROUTINE Patient education suggested?: Yes Additional Instructions: TRANSFER TO TRANSITIONAL CARE
--- NOTE | 2018-07-23 12:32 | PQF ---
PROVIDER RESPONSE TEXT: Hyponatremia--etiology unknown REVIEWER QUERY TEXT: Clarification of Clinical Diagnostic Findings Please clarify if there is an associated diagnosis or not to go along with the following Na levels: Na 127-130. Please clarify documentation or clinical relevance for the clinical / diagnostic findings or whether those are insignificant or unable to be further specified. The patient's Clinical Indicators include: Na levels: 128, 129, 129, 128. 127, 130. Chemistry monitored. Query created by: Charlene Mares on 07/20/2018 12:46 PM Electronically signed by: Mirza Savage MD 07/23/2018 12:30 PM
[2018-07-23 15:57] VITALS: BP 121/70; PULSE 85; RESP 20; TEMP 98.7; O2SAT 96
--- NOTE | 2018-07-23 16:11 | RAD ---
Date of service: 07/23/2018 HISTORY: distention COMPARISON: None available. FINDINGS: BOWEL: There is a nonspecific bowel gas pattern appreciated. No free intra peritoneal gas is grossly evident. Further characterization can provided by abdomen obstructive series. No abnormal intra-abdominal calcifications. Vascular calcifications are identified in the pelvis as well as bilateral inguinal regions. BONES: Multilevel degenerative spondylosis inferior lumbar spine as well as sacroiliac and hip joint degenerative change bilaterally. OTHER FINDINGS: None. IMPRESSION: Nonspecific bowel gas pattern. No prominent free intra peritoneal gas collection. Clinical correlation is advised with radiographic or CT follow-up is available.
[2018-07-23] MEDS ORDERED: Simethicone 80 mg Chewtab PO ONE (17:30)
--- NOTE | 2018-07-23 18:01 | CP.PCM.PN ---
Subjective - Date & Time of Evaluation Date of Evaluation: 07/20/18 Time of Evaluation: 11:00 - Subjective Subjective: stress test today Objective - Vital Signs/Intake and Output Vital Signs (last 24 hours): Temp Pulse Resp BP Pulse Ox 98.7 F 85 20 121/70 96 07/23/18 15:57 07/23/18 15:57 07/23/18 15:57 07/23/18 15:57 07/23/18 15:57 Intake and Output: 07/23/18 07/23/18 06:59 18:59 Intake Total 860 Balance 860 - Labs Labs: 07/23/18 05:00 07/23/18 05:00 PT 14.2 Seconds (9.8-13.1) H 07/16/18 23:40 INR 1.3 07/16/18 23:40 APTT 32.1 Seconds (25.6-37.1) 07/16/18 23:40 - Constitutional Appears: Well - Head Exam Head Exam: ATRAUMATIC, NORMAL INSPECTION, NORMOCEPHALIC - Eye Exam Eye Exam: EOMI, Normal appearance, PERRL Pupil Exam: NORMAL ACCOMODATION, PERRL - ENT Exam ENT Exam: Mucous Membranes Moist, Normal Exam - Neck Exam Neck Exam: Full ROM, Normal Inspection. absent: Lymphadenopathy - Respiratory Exam Respiratory Exam: Rales, NORMAL BREATHING PATTERN - Cardiovascular Exam Cardiovascular Exam: REGULAR RHYTHM, +S1, +S2, Murmur - GI/Abdominal Exam GI & Abdominal Exam: Soft, Normal Bowel Sounds. absent: Tenderness - Exam Bimanual exam: NORMAL BIMANUAL EXAM - Extremities Exam Extremities Exam: Full ROM, Normal Capillary Refill, Normal Inspection. absent: Joint Swelling, Pedal Edema - Back Exam Back Exam: NORMAL INSPECTION - Neurological Exam Neurological Exam: Alert, Awake, CN II-XII Intact, Normal Gait, Oriented x3 - Psychiatric Exam Psychiatric exam: Normal Affect, Normal Mood - Skin Skin Exam: Dry, Intact, Normal Color, Warm Assessment and Plan (1) CHF exacerbation Assessment & Plan: stress test cont raas modulation bb lasix Status: Acute (2) Chronic ulcer of lower extremity Assessment & Plan: cta of le Status: Acute (3) Hyperkalemia Status: Acute (4) Lower extremity pain Status: Acute (5) Acute on chronic left systolic heart failure Status: Acute (6) Arthritis Status: Acute (7) Atrial flutter Status: Acute (8) Elevated troponin level Status: Acute (9) Essential (primary) hypertension Status: Acute
--- NOTE | 2018-07-23 18:20 | CP.PCM.PN ---
Subjective - Date & Time of Evaluation Date of Evaluation: 07/21/18 Time of Evaluation: 18:19 - Subjective Subjective: LE discomfort bb held 2' to low bp lasix held 2' to elevated creatinine stress test abnormal Objective - Vital Signs/Intake and Output Vital Signs (last 24 hours): Temp Pulse Resp BP Pulse Ox 98.7 F 85 20 121/70 96 07/23/18 15:57 07/23/18 15:57 07/23/18 15:57 07/23/18 15:57 07/23/18 15:57 Intake and Output: 07/23/18 07/23/18 06:59 18:59 Intake Total 860 Balance 860 - Labs Labs: 07/23/18 05:00 07/23/18 05:00 PT 14.2 Seconds (9.8-13.1) H 07/16/18 23:40 INR 1.3 07/16/18 23:40 APTT 32.1 Seconds (25.6-37.1) 07/16/18 23:40 - Constitutional Appears: Well - Head Exam Head Exam: ATRAUMATIC, NORMAL INSPECTION, NORMOCEPHALIC - Eye Exam Eye Exam: EOMI, Normal appearance, PERRL Pupil Exam: NORMAL ACCOMODATION, PERRL - ENT Exam ENT Exam: Mucous Membranes Moist, Normal Exam - Neck Exam Neck Exam: Full ROM, Normal Inspection. absent: Lymphadenopathy - Respiratory Exam Respiratory Exam: Clear to Ausculation Bilateral, NORMAL BREATHING PATTERN - Cardiovascular Exam Cardiovascular Exam: REGULAR RHYTHM, +S1, +S2. absent: Murmur - GI/Abdominal Exam GI & Abdominal Exam: Soft, Normal Bowel Sounds. absent: Tenderness - Extremities Exam Extremities Exam: Full ROM, Normal Capillary Refill, Normal Inspection. absent: Joint Swelling, Pedal Edema - Back Exam Back Exam: NORMAL INSPECTION - Neurological Exam Neurological Exam: Alert, Awake, CN II-XII Intact, Normal Gait, Oriented x3 - Psychiatric Exam Psychiatric exam: Normal Affect, Normal Mood - Skin Skin Exam: Dry, Intact, Normal Color, Warm Assessment and Plan (1) CHF exacerbation Assessment & Plan: stress test abnormal raas modulation bb on hold lasix on hold plan for cath in am Status: Acute (2) Chronic ulcer of lower extremity Status: Acute (3) Hyperkalemia Status: Acute (4) Lower extremity pain Status: Acute (5) Acute on chronic left systolic heart failure Status: Acute (6) Arthritis Status: Acute (7) Atrial flutter Status: Acute (8) Elevated troponin level Status: Acute (9) Essential (primary) hypertension Status: Acute
--- NOTE | 2018-07-23 18:22 | CP.PCM.PN ---
Subjective - Date & Time of Evaluation Date of Evaluation: 07/22/18 Time of Evaluation: 18:21 - Subjective Subjective: s/p chcx showing severe LAD disease and elevated filling pressures with mild LV systolic dysfunction Objective - Vital Signs/Intake and Output Vital Signs (last 24 hours): Temp Pulse Resp BP Pulse Ox 98.7 F 85 20 121/70 96 07/23/18 15:57 07/23/18 15:57 07/23/18 15:57 07/23/18 15:57 07/23/18 15:57 Intake and Output: 07/23/18 07/23/18 06:59 18:59 Intake Total 860 Balance 860 - Labs Labs: 07/23/18 05:00 07/23/18 05:00 PT 14.2 Seconds (9.8-13.1) H 07/16/18 23:40 INR 1.3 07/16/18 23:40 APTT 32.1 Seconds (25.6-37.1) 07/16/18 23:40 - Constitutional Appears: Well - Head Exam Head Exam: ATRAUMATIC, NORMAL INSPECTION, NORMOCEPHALIC - Eye Exam Eye Exam: EOMI, Normal appearance, PERRL Pupil Exam: NORMAL ACCOMODATION, PERRL - ENT Exam ENT Exam: Mucous Membranes Moist, Normal Exam - Neck Exam Neck Exam: Full ROM, Normal Inspection. absent: Lymphadenopathy - Respiratory Exam Respiratory Exam: Clear to Ausculation Bilateral, NORMAL BREATHING PATTERN - Cardiovascular Exam Cardiovascular Exam: REGULAR RHYTHM, +S1, +S2. absent: Murmur - GI/Abdominal Exam GI & Abdominal Exam: Soft, Normal Bowel Sounds. absent: Tenderness - Extremities Exam Extremities Exam: Full ROM, Normal Capillary Refill, Tenderness. absent: Joint Swelling, Pedal Edema - Back Exam Back Exam: NORMAL INSPECTION - Neurological Exam Neurological Exam: Alert, Awake, CN II-XII Intact, Normal Gait, Oriented x3 - Psychiatric Exam Psychiatric exam: Normal Affect, Normal Mood - Skin Skin Exam: Dry, Intact, Normal Color, Warm Assessment and Plan (1) CHF exacerbation Assessment & Plan: cath findings discussed with primary attending plan for revascularization gdmt for CAD and CHF Status: Acute (2) Chronic ulcer of lower extremity Status: Acute (3) Hyperkalemia Status: Acute (4) Lower extremity pain Status: Acute (5) Acute on chronic left systolic heart failure Status: Acute (6) Arthritis Status: Acute (7) Atrial flutter Status: Acute (8) Elevated troponin level Status: Acute (9) Essential (primary) hypertension Status: Acute
--- NOTE | 2018-07-23 18:25 | CP.PCM.PN ---
Subjective - Date & Time of Evaluation Date of Evaluation: 07/23/18 Time of Evaluation: 16:00 - Subjective Subjective: Cr 1.4 feeling fine cath findings discussed with pt and MD Objective - Vital Signs/Intake and Output Vital Signs (last 24 hours): Temp Pulse Resp BP Pulse Ox 98.7 F 85 20 121/70 96 07/23/18 15:57 07/23/18 15:57 07/23/18 15:57 07/23/18 15:57 07/23/18 15:57 Intake and Output: 07/23/18 07/23/18 06:59 18:59 Intake Total 860 Balance 860 - Labs Labs: 07/23/18 05:00 07/23/18 05:00 PT 14.2 Seconds (9.8-13.1) H 07/16/18 23:40 INR 1.3 07/16/18 23:40 APTT 32.1 Seconds (25.6-37.1) 07/16/18 23:40 - Constitutional Appears: Well - Head Exam Head Exam: ATRAUMATIC, NORMAL INSPECTION, NORMOCEPHALIC - Eye Exam Eye Exam: EOMI, Normal appearance, PERRL Pupil Exam: NORMAL ACCOMODATION, PERRL - ENT Exam ENT Exam: Mucous Membranes Moist, Normal Exam - Neck Exam Neck Exam: Full ROM, Normal Inspection. absent: Lymphadenopathy - Respiratory Exam Respiratory Exam: Clear to Ausculation Bilateral, NORMAL BREATHING PATTERN - Cardiovascular Exam Cardiovascular Exam: REGULAR RHYTHM, +S1, +S2. absent: Murmur - GI/Abdominal Exam GI & Abdominal Exam: Soft, Normal Bowel Sounds. absent: Tenderness - Extremities Exam Extremities Exam: Full ROM, Normal Capillary Refill, Normal Inspection. absent: Joint Swelling, Pedal Edema - Back Exam Back Exam: NORMAL INSPECTION - Neurological Exam Neurological Exam: Alert, Awake, CN II-XII Intact, Normal Gait, Oriented x3 - Psychiatric Exam Psychiatric exam: Normal Affect, Normal Mood - Skin Skin Exam: Dry, Intact, Normal Color, Warm Assessment and Plan (1) CHF exacerbation Assessment & Plan: severe CAD elevated filling pressures lasix on hold 2' to [place] bb on hold 2' to low bb resume meds plan for revascularization next week possibly friday Status: Acute (2) Chronic ulcer of lower extremity Status: Acute (3) Hyperkalemia Status: Acute (4) Lower extremity pain Status: Acute (5) Acute on chronic left systolic heart failure Status: Acute (6) Arthritis Status: Acute (7) Atrial flutter Status: Acute (8) Elevated troponin level Status: Acute (9) Essential (primary) hypertension Status: Acute
--- NOTE | 2018-07-27 10:28 | PQF ---
PROVIDER RESPONSE TEXT: [id number] REVIEWER QUERY TEXT: Kidney Disease, Chronic CKD Stage Chronic Kidney Disease (CKD) is documented in the Medical Record. Please specify the disease stage ( includes probable or suspected) after workup complete. + [place] also Such as: -- Chronic kidney disease Stage 1 -- Chronic kidney disease Stage 2 -- Chronic kidney disease Stage 3 -- Chronic kidney disease Stage 4 -- Chronic kidney disease Stage 5 -- Chronic kidney disease Stage 5, requiring dialysis -- End Stage Renal Disease -- Other, please specify Stages are defined by the [employer] as follows: CKD Stage I GFR >= 90 ml / min per 1.73 m2 and persistent albuminuria CKD Stage 2 GFR between 60 and 89 with persistent albuminuria CKD Stage 3 GFR between 30 and 59 CKD Stage 4 GFR between 15 and 29 CKD Stage 5 GFR between <15 or End Stage Renal Disease The patient's Clinical Indicators include: BUN 93, 96, 100, 106, 102, 99, 83 Creatinine 2.1/, 2.1, 2.2, 2.3, 2.0, 2.1, 1.5 GFR: 31, 31, 29, 28, 33, 31, 45 Query created by: Charlene Mares on 07/21/2018 12:57 PM Electronically signed by: Farooq Hanley MD 07/27/2018 10:26 AM
--- NOTE | 2018-07-28 09:44 | PQF ---
PROVIDER RESPONSE TEXT: Acute on chronic systolic CHF ( cath data shows elevated filling pressures with depressed EF ) REVIEWER QUERY TEXT: Clinical Validity Additional clinical indicators are required to support your documented diagnosis of Acute on Chronic left systolic heart failure. No current medication noted Please respond and also state in your next progress note whether: -- Condition exists and also please provide clinical indicators to support the diagnosis -- Condition does not exist and also please provide amended documentation in the medical record to cl padmini -- Unable to provide additional clarity regarding the diagnosis -- Other, please specify The patient's Clinical Indicators include: Documentation of acute on chronic L systolic heart failure. Pro BNP 23,200. Medications: None Transferred to [facility] ([facility] for cardiac catheterization Query created by: Charlene Mares on 07/22/2018 2:11 PM Electronically signed by: Yuan Mayo MD 07/28/2018 9:41 AM
== END 2018-07-23 16:55 | DRG 286 ==
LOC: H.ER 22:37 → H.ERHOLD 07-17 00:55 → H.TEL 07-17 04:05
PROVIDERS: ADMIT Internal Medicine Pulmonary Disease; ATTEND Internal Medicine Pulmonary Disease
PROC: 4A023N8 Measurement of Cardiac Sampling and Pressure, Bilateral, Percutaneous Approach (ICD-10-PCS; principal; 2018-07-22)
PROC: B206YZZ Plain Radiography of Right and Left Heart using Other Contrast (ICD-10-PCS; 2018-07-22)
DX: E11.51 Type 2 diabetes mellitus with diabetic peripheral angiopathy without gangrene (principal); I50.23 Acute on chronic systolic (congestive) heart failure; L97.928 Non-pressure chronic ulcer of unspecified part of left lower leg with other specified severity; I13.0 Hypertensive heart and chronic kidney disease with heart failure and stage 1 through stage 4 chronic kidney disease, or unspecified chronic kidney disease; N17.9 Acute kidney failure, unspecified; E87.1 Hypo-osmolality and hyponatremia; I48.92 Unspecified atrial flutter; E11.622 Type 2 diabetes mellitus with other skin ulcer; E87.5 Hyperkalemia; I11.0 Hypertensive heart disease with heart failure; I25.10 Atherosclerotic heart disease of native coronary artery without angina pectoris; F03.90 Unspecified dementia, unspecified severity, without behavioral disturbance, psychotic disturbance, mood disturbance, and anxiety; E78.5 Hyperlipidemia, unspecified; Z95.5 Presence of coronary angioplasty implant and graft; E11.22 Type 2 diabetes mellitus with diabetic chronic kidney disease; Z86.718 Personal history of other venous thrombosis and embolism; N18.3 Chronic kidney disease, stage 3 (moderate)

== ENCOUNTER 2018-07-23 14:18 | Inpatient (IN) | payer OTHER ==
[2018-07-23 17:21] VITALS: BMI 28.2
[2018-07-23] MEDS ORDERED: Simethicone 80 mg Chewtab PO ONE (19:03)
[2018-07-23] MEDS: Insulin Detemir 100 Units/ml Inj SC SCH (21:27)
[2018-07-23] MEDS: POLYETHYLENE GLYCOL 3350 17 GM/Dose PACKET PO SCH (21:28)
--- NOTE | 2018-07-24 07:03 | CP.PCM.PN ---
Subjective - Date & Time of Evaluation Date of Evaluation: 07/24/18 Time of Evaluation: 06:58 - Subjective Subjective: Podiatry Progress Note for Dr. Jones: 77 yo male patient, seen and evaluated for b/l lower extremity superficial ulcerations. Patient was transfered to TCU yesterday. Patient is currently resting comfortably in bed and in NAD. Denies N/V/F Objective - Vital Signs/Intake and Output Vital Signs (last 24 hours): Temp Pulse Resp BP Pulse Ox 97.9 F 73 20 117/67 100 07/23/18 19:24 07/23/18 19:24 07/23/18 19:24 07/23/18 19:24 07/23/18 19:24 - Medications Medications: Current Medications Acetaminophen (Tylenol 325mg Tab) 650 mg PO Q6 PRN PRN Reason: Pain, Mild (1-3) Apixaban (Eliquis) 2.5 mg PO BID [facility]; Protocol Atorvastatin Calcium (Lipitor) 20 mg PO DAILY [facility] Benzocaine/Menthol (Cepacol Sore Throat) 1 malika PO Q3 PRN PRN Reason: Sore Throat Bisacodyl (Dulcolax) 10 mg [place] DAILY PRN PRN Reason: Constipation Insulin Detemir (Levemir) 5 units SC HS [facility] Last Admin: 07/23/18 21:27 Dose: 5 units Polyethylene Glycol (Miralax) 17 gm PO DAILY [facility] Last Admin: 07/23/18 21:28 Dose: 17 gm Promethazine HCl (Phenergan) 12.5 mg PO Q6 PRN PRN Reason: Nausea/Vomiting Sitagliptin Phosphate (Januvia) 50 mg PO DAILY [facility] Spironolactone (Aldactone) 50 mg PO BID [facility] Tuberculin PPD (Tubersol) 5 tu ID ONCE ONE Stop: 07/24/18 09:01 Zolpidem Tartrate (Ambien) 5 mg PO HS PRN PRN Reason: Insomnia Last Admin: 07/23/18 21:26 Dose: 5 mg - Constitutional Appears: Well, Non-toxic, No Acute Distress - Head Exam Head Exam: ATRAUMATIC, NORMOCEPHALIC - Extremities Exam Additional comments: Vasc: DP and PT pulses nonpalpable b/l. CFT <3 seconds to digits x10. TG cool to cool, no increase in warmth to areas of erythema. +1 pitting edema noted to foot and ankle b/l. Varicosities present. Ortho: Moderate pain on palpation to the wounds, no gross deformities noted. Neuro: Gross sensation intact bilaterally. Derm:LLE=ulceration, measuring approximately 2 x 2 x 0.2 cm , noted to left anterior lower leg, no drainage, no purulence, no tunneling, no tracking, no probing. Ulceration noted to posterior leg; no drainage; no purulence; no undermining; no tunneling. RLE=Two abrasions noted to anterior tibia midleg with 100% granular base; no drainage, no purulence, no fluctuance, no undermining, no tunneling. Superficial abrasion to lateral aspect of leg almost fully epithelialized; almost fully resolved Xerosis noted to b/l lower extremities - Neurological Exam Neurological Exam: Alert, Awake, Oriented x3 - Psychiatric Exam Psychiatric exam: Normal Affect, Normal Mood Assessment and Plan - Assessment and Plan (Free Text) Assessment: 77 yo male patient, seen and evaluated for b/l lower extremity superficial ulcerations. Plan: Patient seen and evaluated in TCU Discussed with attending, Dr. Jones Arterial duplex ordered (07/16); No evidence of critical stenosis or occlusive disease Venous duplex (07/16); No evidence of DVT Local wound care per [facility]'s nursing notes: ABIODUN Locke applied to all ulcerations Stable from podiatry standpoint, no podiatric surgical intervention at this time Will continue to follow with you
[2018-07-24] MEDS: POLYETHYLENE GLYCOL 3350 17 GM/Dose PACKET PO SCH (08:28)
[2018-07-24] MEDS ORDERED: Tuberculin 5 Units/0.1 ml Inj ID ONE (09:00)
--- NOTE | 2018-07-24 09:56 | CP.PCM.HP ---
History of Present Illness - History of Present Illness History of Present Illness: CC: lower extremity ulcer HPI: 77 year old male past medical history of hx DVT bilateral lower extremities on , CAD with severe LAD disease (likely revasc on Friday), DM, chronic lower extremity ulcerations, CHF admitted to TCU for worsening chronic lower extremity ulcerations, further PT, and severe LAD disease on complete heart catheterization by Dr. Mayo. ROS: per HPI all other systems reviewed and negative Present on Admission - Present on Admission Any Indicators Present on Admission: No Past Patient History - Past Medical History & Family History Past Medical History?: Yes - Past Social History Smoking Status: Never Smoked - CARDIAC Hx Congestive Heart Failure: Yes Hx Hypertension: Yes Hx Peripheral Vascular Disease: Yes - PULMONARY Hx Respiratory Disorders: No - NEUROLOGICAL Hx Dementia: Yes - HEENT Hx HEENT Problems: No - RENAL Hx Chronic Kidney Disease: No - ENDOCRINE/METABOLIC Hx Endocrine Disorders: No - HEMATOLOGICAL/ONCOLOGICAL Hx Blood Disorders: No - INTEGUMENTARY Hx Dermatological Problems: No Hx Cellulitis: Yes - MUSCULOSKELETAL/RHEUMATOLOGICAL Hx Falls: No - GASTROINTESTINAL Hx Gastrointestinal Disorders: No - GENITOURINARY/GYNECOLOGICAL Hx Genitourinary Disorders: No - PSYCHIATRIC Hx Psychophysiologic Disorder: No Hx Substance Use: No - SURGICAL HISTORY Hx Surgeries: Yes Hx Cardiac Catheterization: Yes Hx Orthopedic Surgery: Yes (ankle and knee surgery) - ANESTHESIA Hx Anesthesia: Yes Hx Anesthesia Reactions: No Meds Allergies/Adverse Reactions: Allergies Allergy/AdvReac Type Severity Reaction Status Date / Time No Known Allergies Allergy Verified 07/23/18 17:21 Results - Vital Signs Recent Vital Signs: Last Vital Signs Temp 97.9 F 07/23/18 19:24 Pulse 73 07/23/18 19:24 Resp 20 07/23/18 19:24 BP 117/67 07/23/18 19:24 Pulse Ox 100 07/23/18 19:24 - Labs Labs: Laboratory Results - last 24 hr 07/23/18 07/24/18 20:53 05:24 POC Glucose (mg/dL) 175 H 122 H Assessment & Plan - Assessment and Plan (Free Text) Plan: 77 year old male past medical history of hx DVT bilateral lower extremities on Eliqu, CAD with severe LAD disease (likely revasc on Friday), DM, chronic lower extremity ulcerations, CHF admitted to TCU for worsening chronic lower extremity ulcerations, further PT, and severe LAD disease on complete heart catheterization by Dr. Mayo. CAD severe LAD disease Dr. Mayo on consult revascularization on friday likely Chronic lower extremity ulcerations PT for ambulation Podiatry on consult
[2018-07-24] MEDS: Insulin Detemir 100 Units/ml Inj SC SCH (21:42)
[2018-07-25 08:00] VITALS: RESP 20
[2018-07-25] MEDS: POLYETHYLENE GLYCOL 3350 17 GM/Dose PACKET PO SCH (08:10)
--- NOTE | 2018-07-25 10:45 | CP.PCM.PN ---
Subjective - Date & Time of Evaluation Date of Evaluation: 07/25/18 Time of Evaluation: 10:43 - Subjective Subjective: Podiatry Progress Note for Dr. Jones: 77 yo male patient, seen and evaluated for b/l lower extremity superficial ulcerations. Patient was transferred to TCU yesterday. Patient is currently resting comfortably in bed and in NAD. Denies N/V/F Objective - Vital Signs/Intake and Output Vital Signs (last 24 hours): Temp Pulse Resp BP Pulse Ox 97.3 F L 70 20 117/74 96 07/25/18 08:00 07/25/18 08:00 07/25/18 08:00 07/25/18 08:00 07/25/18 08:00 - Medications Medications: Current Medications Acetaminophen (Tylenol 325mg Tab) 650 mg PO Q6 PRN PRN Reason: Pain, Mild (1-3) Apixaban (Eliquis) 2.5 mg PO BID [facility]; Protocol Last Admin: 07/25/18 08:09 Dose: 2.5 mg Atorvastatin Calcium (Lipitor) 20 mg PO DAILY [facility] Last Admin: 07/25/18 08:10 Dose: 20 mg Benzocaine/Menthol (Cepacol Sore Throat) 1 malika PO Q3 PRN PRN Reason: Sore Throat Bisacodyl (Dulcolax) 10 mg [place] DAILY PRN PRN Reason: Constipation Ibuprofen (Motrin Tab) 600 mg PO Q8 PRN PRN Reason: Pain, moderate (4-7) Last Admin: 07/24/18 10:06 Dose: 600 mg Insulin Detemir (Levemir) 5 units SC HS [facility] Last Admin: 07/24/18 21:42 Dose: 5 units Polyethylene Glycol (Miralax) 17 gm PO DAILY [facility] Last Admin: 07/25/18 08:10 Dose: 17 gm Promethazine HCl (Phenergan) 12.5 mg PO Q6 PRN PRN Reason: Nausea/Vomiting Sitagliptin Phosphate (Januvia) 50 mg PO DAILY [facility] Last Admin: 07/25/18 08:10 Dose: 50 mg Spironolactone (Aldactone) 50 mg PO BID [facility] Last Admin: 07/25/18 08:09 Dose: 50 mg Zolpidem Tartrate (Ambien) 5 mg PO HS PRN PRN Reason: Insomnia Last Admin: 07/25/18 00:08 Dose: 5 mg - Constitutional Appears: Well, Non-toxic - Head Exam Head Exam: ATRAUMATIC - Extremities Exam Additional comments: Vasc: DP and PT pulses nonpalpable b/l. CFT <3 seconds to digits x10. TG cool to cool, no increase in warmth to areas of erythema. +1 pitting edema noted to foot and ankle b/l. Varicosities present. Ortho: Moderate pain on palpation to the wounds, no gross deformities noted. Neuro: Gross sensation intact bilaterally. Derm:LLE=ulceration, measuring approximately 2 x 2 x 0.2 cm , noted to left anterior lower leg, no drainage, no purulence, no tunneling, no tracking, no probing. Ulceration noted to posterior leg; no drainage; no purulence; no undermining; no tunneling. RLE=Two abrasions noted to anterior tibia midleg with 100% granular base; no drainage, no purulence, no fluctuance, no undermining, no tunneling. Superficial abrasion to lateral aspect of leg almost fully epithelialized; almost fully resolved Xerosis noted to b/l lower extremities - Neurological Exam Neurological Exam: Alert, Awake, Oriented x3 Assessment and Plan - Assessment and Plan (Free Text) Assessment: 77 yo male patient, seen and evaluated for b/l lower extremity superficial ulcerations. Plan: Patient seen and evaluated in TCU Discussed with attending, Dr. Jones Arterial duplex ordered (07/16); No evidence of critical stenosis or occlusive disease Venous duplex (07/16); No evidence of DVT Local wound care per [facility]'s nursing notes: ABIODUN Locke applied to all ulcerations Stable from podiatry standpoint, no podiatric surgical intervention at this time Will continue to follow with you
[2018-07-25] MEDS ORDERED: Simethicone 80 mg Chewtab PO STA (21:10)
[2018-07-25] MEDS: Insulin Detemir 100 Units/ml Inj SC SCH (21:38)
[2018-07-26] MEDS: guaiFENesin 100 mg/5 ml Syrup UD PO PRN ×4 (00:09→21:40)
[2018-07-26] MEDS: Bacitracin OINT 15GM TOP SCH ×2 (08:08→16:38)
[2018-07-26] MEDS: POLYETHYLENE GLYCOL 3350 17 GM/Dose PACKET PO SCH (08:09)
--- NOTE | 2018-07-26 15:33 | CP.PCM.PN ---
Subjective - Date & Time of Evaluation Date of Evaluation: 07/26/18 Time of Evaluation: 15:30 - Subjective Subjective: Podiatry Progress Note for Dr. Jones: 77 yo male patient, seen and evaluated for b/l lower extremity superficial ulcerations. Patient is AAox3. Patient is currently resting comfortably in bed and in NAD. Denies N/V/F Objective - Vital Signs/Intake and Output Vital Signs (last 24 hours): Temp Pulse Resp BP Pulse Ox 97.4 F L 60 20 112/67 99 07/26/18 08:39 07/26/18 08:39 07/26/18 08:39 07/26/18 08:39 07/26/18 08:39 - Medications Medications: Current Medications Acetaminophen (Tylenol 325mg Tab) 650 mg PO Q6 PRN PRN Reason: Pain, Mild (1-3) Last Admin: 07/25/18 21:40 Dose: 650 mg Apixaban (Eliquis) 2.5 mg PO BID [facility]; Protocol Last Admin: 07/26/18 08:09 Dose: 2.5 mg Atorvastatin Calcium (Lipitor) 20 mg PO DAILY [facility] Last Admin: 07/26/18 08:10 Dose: 20 mg Bacitracin (Bacitracin Oint) 1 applic TOP BID [facility] Last Admin: 07/26/18 08:08 Dose: 1 applic Benzocaine/Menthol (Cepacol Sore Throat) 1 malika PO Q3 PRN PRN Reason: Sore Throat Bisacodyl (Dulcolax) 10 mg [place] DAILY PRN PRN Reason: Constipation Guaifenesin (Robitussin) 100 mg PO Q4 PRN PRN Reason: Cough Last Admin: 07/26/18 13:34 Dose: 100 mg Ibuprofen (Motrin Tab) 600 mg PO Q8 PRN PRN Reason: Pain, moderate (4-7) Last Admin: 07/25/18 16:39 Dose: 600 mg Insulin Detemir (Levemir) 5 units SC HS [facility] Last Admin: 07/25/18 21:38 Dose: 5 units Polyethylene Glycol (Miralax) 17 gm PO DAILY [facility] Last Admin: 07/26/18 08:09 Dose: 17 gm Promethazine HCl (Phenergan) 12.5 mg PO Q6 PRN PRN Reason: Nausea/Vomiting Sitagliptin Phosphate (Januvia) 50 mg PO DAILY [facility] Last Admin: 07/26/18 08:10 Dose: 50 mg Spironolactone (Aldactone) 50 mg PO BID [facility] Last Admin: 07/26/18 08:09 Dose: 50 mg Zolpidem Tartrate (Ambien) 5 mg PO HS PRN PRN Reason: Insomnia Last Admin: 07/25/18 23:45 Dose: 5 mg - Constitutional Appears: Well, Non-toxic, No Acute Distress - Head Exam Head Exam: ATRAUMATIC - Extremities Exam Additional comments: Serous drainage strikethrough noted on the dressing b/l, however intact and clean Vasc: DP and PT pulses nonpalpable b/l. CFT <3 seconds to digits x10. TG cool to cool, no increase in warmth to areas of erythema. +1 pitting edema noted to foot and ankle b/l. Varicosities present. Ortho: Moderate pain on palpation to the wounds, no gross deformities noted. Neuro: Gross sensation intact bilaterally. Derm: LLE=ulceration, measuring approximately 2 x 2 x 0.2 cm , noted to left anterior lower leg, no active drainage, no purulence, no tunneling, no tracking, no pro juan. Ulceration noted to posterior midleg; no drainage; no purulence; no undermining; no tunneling. RLE=Two abrasions noted to anterior tibia midleg with 100% granular base; no drainage, no purulence, no fluctuance, no undermining, no tunneling. Superficial abrasion to lateral aspect of leg almost fully epithelialized; almost fully resolved Xerosis noted to b/l lower extremities - Neurological Exam Neurological Exam: Alert, Awake - Psychiatric Exam Psychiatric exam: Normal Affect - Skin Skin Exam: Normal Color Assessment and Plan - Assessment and Plan (Free Text) Assessment: 77 yo male patient, seen and evaluated for b/l lower extremity superficial ulcerations secondary to venous insufficiency Plan: Patient seen and evaluated in TCU Discussed with attending, Dr. Jones Arterial duplex ordered (07/16); No evidence of critical stenosis or occlusive disease Venous duplex (07/16); No evidence of DVT Local wound care per [facility]'s nursing notes: WILLIAN LokceD applied to all ulcerations Stable from podiatry standpoint, no podiatric surgical intervention at this time Will continue to follow with you
[2018-07-26] MEDS: Insulin Detemir 100 Units/ml Inj SC SCH (21:41)
[2018-07-27] MEDS ORDERED: Albuterol 0.083% Inhal Sol (2.5 mg/3 mL) UD INH STA (05:41)
[2018-07-27] MEDS: Bacitracin OINT 15GM TOP SCH ×2 (09:07→19:39)
[2018-07-27] MEDS: POLYETHYLENE GLYCOL 3350 17 GM/Dose PACKET PO SCH (09:08)
[2018-07-27 18:45] LABS: CALCIUM 8.7 mg/dL (8.4-10.2)
[2018-07-27] MEDS: Sodium Chloride 0.45% 1,000 ML IV SCH (19:40)
[2018-07-27] MEDS ORDERED: Sod Polystyrene Sulf 15 gm/60 ml Susp PO ONE (20:44)
[2018-07-27] MEDS ORDERED: Dextrose 50% SYRINGE Inj (50 ml) IVP ONE (20:45)
[2018-07-27] MEDS ORDERED: Insulin Lispro (humaLOG) 100 Units/ml Inj SC ONE (20:53)
[2018-07-27] MEDS: Insulin Detemir 100 Units/ml Inj SC SCH (21:16)
[2018-07-27] MEDS: Albuterol 0.083% Inhal Sol (2.5 mg/3 mL) UD INH PRN (22:32)
[2018-07-27 23:49] LABS: CALCIUM 8.7 mg/dL (8.4-10.2)
[2018-07-28] MEDS: guaiFENesin 100 mg/5 ml Syrup UD PO PRN ×3 (01:17→17:41)
--- NOTE | 2018-07-28 07:31 | CP.PCM.PN ---
Subjective - Date & Time of Evaluation Date of Evaluation: 07/28/18 Time of Evaluation: 07:30 - Subjective Subjective: Podiatry Progress Note for Dr. Jones: 77 yo male patient, seen and evaluated for b/l lower extremity superficial ulcerations. Patient is resting comfortably in bed and in NAD. Patient states that he will most likely be going for a procedure at the end of this week or beginning of next week. No new pedal complaints. Denies N/V/F Objective - Vital Signs/Intake and Output Vital Signs (last 24 hours): Temp Pulse Resp BP Pulse Ox 97.0 F L 67 20 114/63 97 07/27/18 21:19 07/27/18 21:19 07/27/18 21:19 07/27/18 21:19 07/27/18 21:19 - Medications Medications: Current Medications Acetaminophen (Tylenol 325mg Tab) 650 mg PO Q6 PRN PRN Reason: Pain, Mild (1-3) Last Admin: 07/25/18 21:40 Dose: 650 mg Albuterol Sulfate (Albuterol 0.083% Inhal Yady (2.5 Mg/3 Ml) Ud) 2.5 mg INH RQ6 PRN PRN Reason: Shortness of Breath Last Admin: 07/27/18 22:32 Dose: 2.5 mg Apixaban (Eliquis) 2.5 mg PO BID [facility]; Protocol Last Admin: 07/27/18 19:39 Dose: 2.5 mg Atorvastatin Calcium (Lipitor) 20 mg PO DAILY [facility] Last Admin: 07/27/18 09:08 Dose: Not Given Bacitracin (Bacitracin Oint) 1 applic TOP BID [facility] Last Admin: 07/27/18 19:39 Dose: Not Given Benzocaine/Menthol (Cepacol Sore Throat) 1 malika PO Q3 PRN PRN Reason: Sore Throat Bisacodyl (Dulcolax) 10 mg [place] DAILY PRN PRN Reason: Constipation Last Admin: 07/26/18 20:28 Dose: 10 mg Guaifenesin (Robitussin) 100 mg PO Q4 PRN PRN Reason: Cough Last Admin: 07/28/18 01:17 Dose: 100 mg Sodium Chloride (Sodium Chloride 0.45%) 1,000 mls @ 70 mls/hr IV .[id number] [facility] Stop: 07/28/18 10:39 Last Admin: 07/27/18 19:40 Dose: 70 mls/hr Ibuprofen (Motrin Tab) 600 mg PO Q8 PRN PRN Reason: Pain, moderate (4-7) Last Admin: 07/25/18 16:39 Dose: 600 mg Insulin Detemir (Levemir) 5 units SC HS [facility] Last Admin: 07/27/18 21:16 Dose: 5 units Polyethylene Glycol (Miralax) 17 gm PO DAILY [facility] Last Admin: 07/27/18 09:08 Dose: Not Given Promethazine HCl (Phenergan) 12.5 mg PO Q6 PRN PRN Reason: Nausea/Vomiting Sitagliptin Phosphate (Januvia) 50 mg PO DAILY [facility] Last Admin: 07/27/18 09:08 Dose: Not Given Spironolactone (Aldactone) 50 mg PO BID [facility] Last Admin: 07/27/18 19:39 Dose: 50 mg Zolpidem Tartrate (Ambien) 5 mg PO HS PRN PRN Reason: Insomnia Last Admin: 07/28/18 01:16 Dose: 5 mg - Labs Labs: 07/27/18 23:30 - Constitutional Appears: Well, Non-toxic, No Acute Distress - Head Exam Head Exam: ATRAUMATIC, NORMOCEPHALIC - Extremities Exam Additional comments: Vasc: DP and PT pulses nonpalpable b/l. CFT <3 seconds to digits x10. TG cool to cool, no increase in warmth to areas of erythema. +1 pitting edema noted to foot and ankle b/l. Varicosities present. Ortho: Moderate pain on palpation to left anterior leg wound, no gross deformities noted. Neuro: Gross sensation intact bilaterally. Derm: LLE=ulceration, measuring approximately 2 x 2 x 0.2 cm , noted to left anterior lower leg, no active drainage, no purulence, no tunneling, no tracking, no probing. Ulceration noted to posterior midleg; no drainage; no purulence; no undermining; no tunneling. RLE= Abrasion noted to anterior tibia midleg with 100% granular base; no drainage, no purulence, no fluctuance, no undermining, no tunneling. Xerosis noted to b/l lower extremities - Neurological Exam Neurological Exam: Alert, Awake - Psychiatric Exam Psychiatric exam: Normal Affect, Normal Mood Assessment and Plan - Assessment and Plan (Free Text) Assessment: 77 yo male patient, seen and evaluated for b/l lower extremity superficial ulcerations secondary to venous insufficiency Plan: Patient seen and evaluated in TCU; Discussed with attending, Dr. Jones Arterial duplex ordered (07/16); No evidence of critical stenosis or occlusive disease Venous duplex (07/16); No evidence of DVT Local wound care: ABIODUN Locke applied to all ulcerations Stable from podiatry standpoint, no podiatric surgical intervention at this time Will continue to follow with you
[2018-07-28 08:12] LABS: CALCIUM 8.5 mg/dL (8.4-10.2)
[2018-07-28] MEDS: Bacitracin OINT 15GM TOP SCH ×2 (08:39→17:39)
[2018-07-28] MEDS: POLYETHYLENE GLYCOL 3350 17 GM/Dose PACKET PO SCH (08:39)
[2018-07-28] MEDS: Benzocaine/Menthol (Cepacol) Lozenge PO PRN (08:41)
--- NOTE | 2018-07-28 08:49 | CP.PCM.PN ---
Subjective - Date & Time of Evaluation Date of Evaluation: 07/28/18 Time of Evaluation: 08:48 - Subjective Subjective: 77 years old male with history of hypertension, diabetes, DVT, chronic lower extremity ulcer and CHF presents to ER for evaluation of bilateral lower extremity ulcers , pain and oozing. s/p cardiac cath yesterday no complaints, Objective - Vital Signs/Intake and Output Vital Signs (last 24 hours): Temp Pulse Resp BP Pulse Ox 97.1 F L 70 20 126/75 97 07/28/18 08:17 07/28/18 08:17 07/28/18 08:17 07/28/18 08:17 07/28/18 08:17 - Medications Medications: Current Medications Acetaminophen (Tylenol 325mg Tab) 650 mg PO Q6 PRN PRN Reason: Pain, Mild (1-3) Last Admin: 07/25/18 21:40 Dose: 650 mg Albuterol Sulfate (Albuterol 0.083% Inhal Yady (2.5 Mg/3 Ml) Ud) 2.5 mg INH RQ6 PRN PRN Reason: Shortness of Breath Last Admin: 07/27/18 22:32 Dose: 2.5 mg Apixaban (Eliquis) 2.5 mg PO BID [facility]; Protocol Last Admin: 07/28/18 08:38 Dose: 2.5 mg Atorvastatin Calcium (Lipitor) 20 mg PO DAILY [facility] Last Admin: 07/28/18 08:39 Dose: 20 mg Bacitracin (Bacitracin Oint) 1 applic TOP BID [facility]S [facility] Last Admin: 07/28/18 08:39 Dose: 1 applic Benzocaine/Menthol (Cepacol Sore Throat) 1 malika PO Q3 PRN PRN Reason: Sore Throat Last Admin: 07/28/18 08:41 Dose: 1 malika Bisacodyl (Dulcolax) 10 mg [place] DAILY PRN PRN Reason: Constipation Last Admin: 07/26/18 20:28 Dose: 10 mg Guaifenesin (Robitussin) 100 mg PO Q4 PRN PRN Reason: Cough Last Admin: 07/28/18 08:43 Dose: 100 mg Sodium Chloride (Sodium Chloride 0.45%) 1,000 mls @ 70 mls/hr IV .[id number] COUNTS [facility]CLUDE 234 BEDS AT THE [facility] Stop: 07/28/18 10:39 Last Admin: 07/27/18 19:40 Dose: 70 mls/hr Ibuprofen (Motrin Tab) 600 mg PO Q8 PRN PRN Reason: Pain, moderate (4-7) Last Admin: 07/25/18 16:39 Dose: 600 mg Insulin Detemir (Levemir) 5 units SC HS [facility] 234 BEDS AT [facility] Last Admin: 07/27/18 21:16 Dose: 5 units Polyethylene Glycol (Miralax) 17 gm PO DAILY [facility]S [facility] Last Admin: 07/28/18 08:39 Dose: 17 gm Promethazine HCl (Phenergan) 12.5 mg PO Q6 PRN PRN Reason: Nausea/Vomiting Sitagliptin Phosphate (Januvia) 50 mg PO DAILY [facility]S AT [facility] Last Admin: 07/28/18 08:39 Dose: 50 mg Spironolactone (Aldactone) 50 mg PO BID [facility]S [facility] Last Admin: 07/28/18 08:38 Dose: 50 mg Zolpidem Tartrate (Ambien) 5 mg PO HS PRN PRN Reason: Insomnia Last Admin: 07/28/18 01:16 Dose: 5 mg - Labs Labs: 07/28/18 07:44 - Constitutional Appears: Well, Non-toxic, No Acute Distress - Head Exam Head Exam: ATRAUMATIC, NORMAL INSPECTION, NORMOCEPHALIC - Eye Exam Eye Exam: EOMI, Normal appearance, PERRL Pupil Exam: NORMAL ACCOMODATION - ENT Exam ENT Exam: Mucous Membranes Moist - Respiratory Exam Respiratory Exam: Clear to Ausculation Bilateral, NORMAL BREATHING PATTERN - Cardiovascular Exam Cardiovascular Exam: Irregular Rhythm, REGULAR RHYTHM, +S1, +S2 - GI/Abdominal Exam GI & Abdominal Exam: Soft, Normal Bowel Sounds - Rectal Exam Rectal Exam: Deferred - Neurological Exam Neurological Exam: Alert, Awake, CN II-XII Intact, Oriented x3 - Skin Skin Exam: Intact, Normal Color, Warm Assessment and Plan - Assessment and Plan (Free Text) Assessment: 77 yo Wm with pmh/o htn, dm, chf, cad , s/p stents, ckd dvt of left leg was admitted with b/l leg ulcers with oozing 1. anthony on ckd 2. hyperkalemia 3. b/l leg ulcers 4. htn 5. CAD, s/p cardiac cath yesterday renal function is slightly worse continue with iv hydration continue physical therapy c/w iv abx as per ID follow up bmp in am follow up with cardiology
[2018-07-28] MEDS: Sodium Chloride 0.45% 1,000 ML IV SCH ×2 (11:48→21:28)
--- NOTE | 2018-07-28 15:55 | CP.PCM.PN ---
Subjective - Date & Time of Evaluation Date of Evaluation: 07/28/18 Time of Evaluation: 17:30 - Subjective Subjective: Patient was seen and examined bedside. Appears sleepy stating that was not able to sleep well yesterday. Feeling bloated . Hemodynamically stable, afebrile. No acute issues overnight s/p cardiac cath with PTCA of LAD Objective - Vital Signs/Intake and Output Vital Signs (last 24 hours): Temp Pulse Resp BP Pulse Ox 97.8 F 73 20 130/73 97 07/28/18 15:45 07/28/18 15:45 07/28/18 15:45 07/28/18 15:45 07/28/18 15:45 - Medications Medications: Current Medications Acetaminophen (Tylenol 325mg Tab) 650 mg PO Q6 PRN PRN Reason: Pain, Mild (1-3) Last Admin: 07/28/18 09:45 Dose: 650 mg Albuterol Sulfate (Albuterol 0.083% Inhal Yady (2.5 Mg/3 Ml) Ud) 2.5 mg INH RQ6 PRN PRN Reason: Shortness of Breath Last Admin: 07/27/18 22:32 Dose: 2.5 mg Apixaban (Eliquis) 2.5 mg PO BID [facility]; Protocol Last Admin: 07/28/18 08:38 Dose: 2.5 mg Atorvastatin Calcium (Lipitor) 20 mg PO DAILY [facility] Last Admin: 07/28/18 08:39 Dose: 20 mg Bacitracin (Bacitracin Oint) 1 applic TOP BID [facility] Last Admin: 07/28/18 08:39 Dose: 1 applic Benzocaine/Menthol (Cepacol Sore Throat) 1 malika PO Q3 PRN PRN Reason: Sore Throat Last Admin: 07/28/18 08:41 Dose: 1 malika Bisacodyl (Dulcolax) 10 mg [place] DAILY PRN PRN Reason: Constipation Last Admin: 07/26/18 20:28 Dose: 10 mg Guaifenesin (Robitussin) 100 mg PO Q4 PRN PRN Reason: Cough Last Admin: 07/28/18 08:43 Dose: 100 mg Sodium Chloride (Sodium Chloride 0.45%) 1,000 mls @ 70 mls/hr IV .[id number] [facility] Stop: 07/29/18 09:37 Last Admin: 07/28/18 11:48 Dose: 70 mls/hr Ibuprofen (Motrin Tab) 600 mg PO Q8 PRN PRN Reason: Pain, moderate (4-7) Last Admin: 07/25/18 16:39 Dose: 600 mg Insulin Detemir (Levemir) 5 units SC HS [facility] Last Admin: 07/27/18 21:16 Dose: 5 units Polyethylene Glycol (Miralax) 17 gm PO DAILY [facility] Last Admin: 07/28/18 08:39 Dose: 17 gm Promethazine HCl (Phenergan) 12.5 mg PO Q6 PRN PRN Reason: Nausea/Vomiting Sitagliptin Phosphate (Januvia) 50 mg PO DAILY [facility] Last Admin: 07/28/18 08:39 Dose: 50 mg Spironolactone (Aldactone) 50 mg PO BID [facility] Last Admin: 07/28/18 08:38 Dose: 50 mg Zolpidem Tartrate (Ambien) 5 mg PO HS PRN PRN Reason: Insomnia Last Admin: 07/28/18 01:16 Dose: 5 mg - Labs Labs: 07/28/18 07:44 - Constitutional Appears: Non-toxic, No Acute Distress, Chronically Ill, Other (sleepy , weak ) - Head Exam Head Exam: ATRAUMATIC, NORMOCEPHALIC - Eye Exam Eye Exam: EOMI, PERRL Pupil Exam: NORMAL ACCOMODATION - ENT Exam ENT Exam: Normal Exam - Neck Exam Neck Exam: Full ROM, Normal Inspection - Respiratory Exam Respiratory Exam: Clear to Ausculation Bilateral, NORMAL BREATHING PATTERN. absent: Rhonchi, Wheezes, Respiratory Distress - Cardiovascular Exam Cardiovascular Exam: REGULAR RHYTHM, RRR, +S1, +S2. absent: JVD - GI/Abdominal Exam GI & Abdominal Exam: Distended, Soft, Hyperactive Bowel Sounds. absent: Tenderness, Rebound - Rectal Exam Rectal Exam: Deferred - Extremities Exam Additional comments: bilateral lower extremity ulcerations with dermatitis , dressing in place - Neurological Exam Neurological Exam: Alert, Awake, CN II-XII Intact, Oriented x3 - Psychiatric Exam Psychiatric exam: Flat Affect - Skin Skin Exam: Warm Assessment and Plan - Assessment and Plan (Free Text) Assessment: 77 year old male patient PMHx DM, CHF systolic dysfunction , CKD stage III, CAD, HTN, hx of DVT on Eliquist was admitted for lower extremity pain with ulcerations. He was seen by podiatry and cardiology . Underwent PTCA of LAD and presently in TCU for PT . Podiatry following 1. Deconditioning Continue Pt as recommended by cardiology 2. Chronic lower extremity ulcerations Podiatry on board following with dressing charges No surgical intervention Continue PT 3. CAD s/p PTCA of LAD on statin , eliquist heart healthy and diabetic diet cardiology on board , Dr Justice 4.CKD stage III stable Cr 1.6 GFR 51 5. Hyperkalemia Hold spironolactone 6. Hypertension Start low dose Coreg hold spironolactone due to hyperkalemia hold ACEi due to renal function 7. CHF systolic dysfunction , compensated Ef 45-50 % Start Coreg 8. History DVT on Eliquist 9. Abdominal distention ? ileus having bowel sounds and passing gas Monitor for now Started Simethicone order KUB
[2018-07-28] MEDS: Simethicone 80 mg Chewtab PO SCH ×2 (17:38→21:24)
--- NOTE | 2018-07-28 19:18 | CARD ---
APPROVED REPORT Date of service: 07/28/2018 EKG Measurement Heart [id number] <Conclusion> Sinus rhythm with second degree AV block ( Mobitz I) Low voltage QRS Anteroseptal infarct, age undetermined Lateral infarct, age undetermined Abnormal ECG
[2018-07-28] MEDS: Insulin Detemir 100 Units/ml Inj SC SCH (21:25)
[2018-07-29] MEDS: Sodium Chloride 0.45% 1,000 ML IV SCH (00:01)
[2018-07-29 07:06] LABS: HEMOGLOBIN 13.7 g/dL (12.0-18.0); MEAN CELL VOLUME 95.6 fl (80.0-94.0); MEAN CORPUSCULAR HEMOGLOBIN 31.6 pg (27.0-31.0); RBC 4.33 Mil/uL (4.40-5.90); RED CELL DISTRIBUTION WIDTH 18.1 % (11.5-14.5); WHITE BLOOD COUNT 8.4 K/uL (4.8-10.8)
[2018-07-29 07:26] LABS: ALB/GLOB RATIO 0.9 (1.0-2.1); ALBUMIN 3.1 g/dL (3.5-5.0); CALCIUM 8.7 mg/dL (8.4-10.2)
[2018-07-29] MEDS: Bacitracin OINT 15GM TOP SCH ×2 (08:16→17:11)
[2018-07-29] MEDS: POLYETHYLENE GLYCOL 3350 17 GM/Dose PACKET PO SCH (08:17)
[2018-07-29] MEDS: Simethicone 80 mg Chewtab PO SCH ×4 (08:18→21:49)
--- NOTE | 2018-07-29 08:51 | RAD ---
Date of service: 07/28/2018 HISTORY: distended abdomen COMPARISON: 07/23/2018 FINDINGS: BOWEL: Stomach is moderately distended with gas. Gas is seen throughout mostly colonic nondistended loops. No distended small bowel loops identified. Large body habitus noted. Some mild stool in right colon-no extensive stool appreciated. BONES: Thoraco lumbar spondylosis. Incomplete closure of the S1 posterior elements. Bilateral hemipelvic vascular calcifications. The visualized-bilateral hip arthrosis. OTHER FINDINGS: None. IMPRESSION: Nonspecific bowel gas pattern. No bowel obstruction suggested. No gross urolithiasis appreciated. Large body habitus noted.
[2018-07-29] MEDS ORDERED: Sod Polystyrene Sulf 15 gm/60 ml Susp PO ONE (10:40)
--- NOTE | 2018-07-29 10:54 | CP.PCM.PN ---
Subjective - Date & Time of Evaluation Date of Evaluation: 07/29/18 Time of Evaluation: 10:53 - Subjective Subjective: 77 yo Wm with pmh/o htn, dm, chf, cad , s/p stents, ckd dvt of left leg was admitted with b/l leg ulcers with oozing, s/p cardiac cath and angiogram of LE pt is oob to chair, no sob, no pain Objective - Vital Signs/Intake and Output Vital Signs (last 24 hours): Temp Pulse Resp BP Pulse Ox 97.1 F L 65 20 117/71 100 07/29/18 07:30 07/29/18 09:37 07/29/18 07:30 07/29/18 08:20 07/29/18 09:37 - Medications Medications: Current Medications Acetaminophen (Tylenol 325mg Tab) 650 mg PO Q6 PRN PRN Reason: Pain, Mild (1-3) Last Admin: 07/28/18 09:45 Dose: 650 mg Albuterol Sulfate (Albuterol 0.083% Inhal Yady (2.5 Mg/3 Ml) Ud) 2.5 mg INH RQ6 PRN PRN Reason: Shortness of Breath Last Admin: 07/27/18 22:32 Dose: 2.5 mg Apixaban (Eliquis) 2.5 mg PO BID [facility]; Protocol Last Admin: 07/29/18 08:17 Dose: 2.5 mg Atorvastatin Calcium (Lipitor) 20 mg PO DAILY [facility] Last Admin: 07/29/18 08:17 Dose: 20 mg Bacitracin (Bacitracin Oint) 1 applic TOP BID [facility] Last Admin: 07/29/18 08:16 Dose: 1 applic Benzocaine/Menthol (Cepacol Sore Throat) 1 malika PO Q3 PRN PRN Reason: Sore Throat Last Admin: 07/28/18 08:41 Dose: 1 malika Bisacodyl (Dulcolax) 10 mg [place] DAILY PRN PRN Reason: Constipation Last Admin: 07/26/18 20:28 Dose: 10 mg Carvedilol (Coreg) 6.25 mg PO Q12 [facility] Last Admin: 07/29/18 08:20 Dose: 6.25 mg Furosemide (Lasix) 20 mg PO DAILY [facility] Guaifenesin (Robitussin) 100 mg PO Q4 PRN PRN Reason: Cough Last Admin: 07/28/18 17:41 Dose: 100 mg Insulin Detemir (Levemir) 5 units SC HS [facility] Last Admin: 07/28/18 21:25 Dose: 5 units Polyethylene Glycol (Miralax) 17 gm PO DAILY [facility] Last Admin: 07/29/18 08:17 Dose: 17 gm Promethazine HCl (Phenergan) 12.5 mg PO Q6 PRN PRN Reason: Nausea/Vomiting Simethicone (Mylicon Chew Tab) 80 mg PO [facility] Last Admin: 07/29/18 08:18 Dose: 80 mg Sitagliptin Phosphate (Januvia) 50 mg PO DAILY [facility] Last Admin: 07/29/18 08:17 Dose: 50 mg Zolpidem Tartrate (Ambien) 5 mg PO HS PRN PRN Reason: Insomnia Last Admin: 07/29/18 00:03 Dose: 5 mg - Labs Labs: 07/29/18 06:25 07/29/18 06:25 - Constitutional Appears: Well, Non-toxic, No Acute Distress - Head Exam Head Exam: ATRAUMATIC, NORMAL INSPECTION - Eye Exam Eye Exam: EOMI, Normal appearance, PERRL Pupil Exam: NORMAL ACCOMODATION - ENT Exam ENT Exam: Mucous Membranes Moist - Respiratory Exam Respiratory Exam: Clear to Ausculation Bilateral, NORMAL BREATHING PATTERN - GI/Abdominal Exam GI & Abdominal Exam: Soft, Normal Bowel Sounds - Rectal Exam Rectal Exam: Deferred - Extremities Exam Additional comments: dressing to both LE - Neurological Exam Neurological Exam: Alert, CN II-XII Intact, Normal Gait, Oriented x3 - Psychiatric Exam Psychiatric exam: Normal Affect, Normal Mood - Skin Skin Exam: Normal Color, Warm Assessment and Plan - Assessment and Plan (Free Text) Assessment: 77 yo Wm with pmh/o htn, dm, chf, cad , s/p stents, ckd dvt of left leg was admitted with b/l leg ulcers with oozing 1. anthony on ckd-3 2. hyperkalemia 3. b/l leg ulcers/ cellulitis 4. htn 5. CAD, s/p cardiac cath and angiogram of LE d/c ivf start lasix 20 mg po qd kayexalate 30 gm po x1 follow up bmp in am follow up with cardiology
[2018-07-29 13:27] LABS: ABG ALLEN TEST YES; ARTERIAL BLOOD GAS HCO3 22.4 mmol/L (21-28); ARTERIAL BLOOD GAS HEMOGLOBIN 14.3 g/dL (11.7-17.4); ARTERIAL BLOOD GAS O2 CAPACITY 19.4 mL/dL (16-24); ARTERIAL BLOOD GAS O2 CONTENT 19.4 ML/dL (15-23); ARTERIAL BLOOD GAS O2 SAT 99.8 % (95-98); ARTERIAL BLOOD GAS PCO2 29 mm/Hg (35-45); ARTERIAL BLOOD GAS PH 7.44 (7.35-7.45); ARTERIAL BLOOD GAS PO2 128 mm/Hg (80-100); ARTERIAL BLOOD GAS TCO2 20.6 mmol/L (22-28)
[2018-07-29] MEDS: guaiFENesin 100 mg/5 ml Syrup UD PO PRN (13:48)
[2018-07-29] MEDS: Insulin Detemir 100 Units/ml Inj SC SCH (21:47)
[2018-07-30 06:24] LABS: CALCIUM 8.6 mg/dL (8.4-10.2)
--- NOTE | 2018-07-30 07:39 | CP.PCM.PN ---
Subjective - Date & Time of Evaluation Date of Evaluation: 07/30/18 Time of Evaluation: 07:39 Objective - Vital Signs/Intake and Output Vital Signs (last 24 hours): Temp Pulse Resp BP Pulse Ox 97.3 F L 63 20 115/71 100 07/30/18 07:39 07/30/18 07:39 07/30/18 07:39 07/30/18 07:39 07/30/18 07:39 - Medications Medications: Current Medications Acetaminophen (Tylenol 325mg Tab) 650 mg PO Q6 PRN PRN Reason: Pain, Mild (1-3) Last Admin: 07/28/18 09:45 Dose: 650 mg Albuterol Sulfate (Albuterol 0.083% Inhal Yady (2.5 Mg/3 Ml) Ud) 2.5 mg INH RQ6 PRN PRN Reason: Shortness of Breath Last Admin: 07/27/18 22:32 Dose: 2.5 mg Apixaban (Eliquis) 2.5 mg PO BID [facility]; Protocol Last Admin: 07/29/18 17:15 Dose: 2.5 mg Atorvastatin Calcium (Lipitor) 20 mg PO DAILY [facility] Last Admin: 07/29/18 08:17 Dose: 20 mg Bacitracin (Bacitracin Oint) 1 applic TOP BID [facility] Last Admin: 07/29/18 17:11 Dose: 1 applic Benzocaine/Menthol (Cepacol Sore Throat) 1 malika PO Q3 PRN PRN Reason: Sore Throat Last Admin: 07/28/18 08:41 Dose: 1 malika Bisacodyl (Dulcolax) 10 mg [place] DAILY PRN PRN Reason: Constipation Last Admin: 07/26/18 20:28 Dose: 10 mg Carvedilol (Coreg) 6.25 mg PO Q12 [facility] Last Admin: 07/29/18 21:51 Dose: 6.25 mg Furosemide (Lasix) 20 mg PO DAILY [facility] Guaifenesin (Robitussin) 100 mg PO Q4 PRN PRN Reason: Cough Last Admin: 07/29/18 13:48 Dose: 100 mg Insulin Detemir (Levemir) 5 units SC HS [facility] Last Admin: 07/29/18 21:47 Dose: 5 units Polyethylene Glycol (Miralax) 17 gm PO DAILY [facility] Last Admin: 07/29/18 08:17 Dose: 17 gm Promethazine HCl (Phenergan) 12.5 mg PO Q6 PRN PRN Reason: Nausea/Vomiting Simethicone (Mylicon Chew Tab) 80 mg PO [facility] Last Admin: 07/29/18 21:49 Dose: 80 mg Sitagliptin Phosphate (Januvia) 50 mg PO DAILY [facility] Last Admin: 07/29/18 08:17 Dose: 50 mg Zolpidem Tartrate (Ambien) 5 mg PO HS PRN PRN Reason: Insomnia Last Admin: 07/29/18 21:43 Dose: 5 mg - Labs Labs: 07/29/18 06:25 07/30/18 06:08
[2018-07-30] MEDS: Bacitracin OINT 15GM TOP SCH ×2 (08:59→17:42)
[2018-07-30] MEDS: guaiFENesin 100 mg/5 ml Syrup UD PO PRN ×2 (09:00→17:42)
[2018-07-30] MEDS: POLYETHYLENE GLYCOL 3350 17 GM/Dose PACKET PO SCH (09:00)
[2018-07-30] MEDS: Simethicone 80 mg Chewtab PO SCH ×4 (09:01→23:32)
--- NOTE | 2018-07-30 09:44 | CP.PCM.PN ---
Subjective - Date & Time of Evaluation Date of Evaluation: 07/30/18 Time of Evaluation: 09:44 - Subjective Subjective: 77 yo Wm with pmh/o htn, dm, chf, cad , s/p stents, ckd dvt of left leg was admitted with b/l leg ulcers with oozing, s/p cardiac cath and angiogram of LE, pt denies any sob, no pain, no cp + hyperkalemia, s/p kayexalate x1 yesterday Objective - Vital Signs/Intake and Output Vital Signs (last 24 hours): Temp Pulse Resp BP Pulse Ox 97.3 F L 63 20 115/71 100 07/30/18 07:39 07/30/18 09:04 07/30/18 07:39 07/30/18 09:07 07/30/18 07:39 - Medications Medications: Current Medications Acetaminophen (Tylenol 325mg Tab) 650 mg PO Q6 PRN PRN Reason: Pain, Mild (1-3) Last Admin: 07/28/18 09:45 Dose: 650 mg Albuterol Sulfate (Albuterol 0.083% Inhal Yday (2.5 Mg/3 Ml) Ud) 2.5 mg INH RQ6 PRN PRN Reason: Shortness of Breath Last Admin: 07/27/18 22:32 Dose: 2.5 mg Apixaban (Eliquis) 2.5 mg PO BID [facility]; Protocol Last Admin: 07/30/18 09:00 Dose: 2.5 mg Atorvastatin Calcium (Lipitor) 20 mg PO DAILY [facility] Last Admin: 07/30/18 09:01 Dose: 20 mg Bacitracin (Bacitracin Oint) 1 applic TOP BID [facility] Last Admin: 07/30/18 08:59 Dose: 1 applic Benzocaine/Menthol (Cepacol Sore Throat) 1 malika PO Q3 PRN PRN Reason: Sore Throat Last Admin: 07/28/18 08:41 Dose: 1 malika Bisacodyl (Dulcolax) 10 mg [place] DAILY PRN PRN Reason: Constipation Last Admin: 07/26/18 20:28 Dose: 10 mg Carvedilol (Coreg) 6.25 mg PO Q12 [facility] Last Admin: 07/30/18 09:04 Dose: 6.25 mg Furosemide (Lasix) 20 mg PO DAILY [facility] Last Admin: 07/30/18 09:07 Dose: 20 mg Guaifenesin (Robitussin) 100 mg PO Q4 PRN PRN Reason: Cough Last Admin: 07/30/18 09:00 Dose: 100 mg Insulin Detemir (Levemir) 5 units SC HS [facility] Last Admin: 07/29/18 21:47 Dose: 5 units Polyethylene Glycol (Miralax) 17 gm PO DAILY [facility] Last Admin: 07/30/18 09:00 Dose: 17 gm Promethazine HCl (Phenergan) 12.5 mg PO Q6 PRN PRN Reason: Nausea/Vomiting Simethicone (Mylicon Chew Tab) 80 mg PO [facility] Last Admin: 07/30/18 09:01 Dose: 80 mg Sitagliptin Phosphate (Januvia) 50 mg PO DAILY [facility] Last Admin: 07/30/18 09:00 Dose: 50 mg Zolpidem Tartrate (Ambien) 5 mg PO HS PRN PRN Reason: Insomnia Last Admin: 07/29/18 21:43 Dose: 5 mg - Labs Labs: 07/29/18 06:25 07/30/18 06:08 - Constitutional Appears: Well, No Acute Distress - Head Exam Head Exam: ATRAUMATIC, NORMOCEPHALIC - Eye Exam Eye Exam: EOMI, Normal appearance, PERRL Pupil Exam: NORMAL ACCOMODATION - ENT Exam ENT Exam: Mucous Membranes Moist - Neck Exam Neck Exam: Full ROM, Normal Inspection - Respiratory Exam Respiratory Exam: Clear to Ausculation Bilateral, NORMAL BREATHING PATTERN - Cardiovascular Exam Cardiovascular Exam: REGULAR RHYTHM, +S1, +S2 - GI/Abdominal Exam GI & Abdominal Exam: Soft, Normal Bowel Sounds - Rectal Exam Rectal Exam: Deferred - Extremities Exam Additional comments: b/ le ulcers+, dressing+ - Neurological Exam Neurological Exam: Alert, Awake, CN II-XII Intact Additional comments: oriented x 2 - Psychiatric Exam Psychiatric exam: Normal Affect - Skin Skin Exam: Erythema Assessment and Plan - Assessment and Plan (Free Text) Assessment: 77 yo Wm with pmh/o htn, dm, chf, cad , s/p stents, ckd dvt of left leg was admitted with b/l leg ulcers with oozing 1. anthony on ckd-3 2. hyperkalemia 3. b/l leg ulcers/ cellulitis 4. htn 5. CAD, s/p cardiac cath and angiogram of LE d/c ivf start lasix 20 mg po qd kayexalate 15 gm po x1 dose today follow up bmp in am follow up with cardiology renal function is stable
[2018-07-30] MEDS ORDERED: Sod Polystyrene Sulf 15 gm/60 ml Susp PO ONE (10:00)
[2018-07-30] MEDS: Albuterol 0.083% Inhal Sol (2.5 mg/3 mL) UD INH PRN (16:19)
--- NOTE | 2018-07-30 18:26 | CP.PCM.PN ---
Subjective - Date & Time of Evaluation Date of Evaluation: 07/30/18 Time of Evaluation: 14:00 - Subjective Subjective: Patient seen and examined. Denied chest pain. Breathing okay with O2 via NC. Objective - Vital Signs/Intake and Output Vital Signs (last 24 hours): Temp Pulse Resp BP Pulse Ox 97.0 F L 66 20 116/64 98 07/30/18 16:31 07/30/18 16:31 07/30/18 16:31 07/30/18 16:31 07/30/18 16:31 - Medications Medications: Current Medications Acetaminophen (Tylenol 325mg Tab) 650 mg PO Q6 PRN PRN Reason: Pain, Mild (1-3) Last Admin: 07/28/18 09:45 Dose: 650 mg Albuterol Sulfate (Albuterol 0.083% Inhal Yady (2.5 Mg/3 Ml) Ud) 2.5 mg INH RQ6 PRN PRN Reason: Shortness of Breath Last Admin: 07/30/18 16:19 Dose: 2.5 mg Apixaban (Eliquis) 2.5 mg PO BID [facility]; Protocol Last Admin: 07/30/18 17:43 Dose: 2.5 mg Atorvastatin Calcium (Lipitor) 20 mg PO DAILY [facility] Last Admin: 07/30/18 09:01 Dose: 20 mg Bacitracin (Bacitracin Oint) 1 applic TOP BID [facility] Last Admin: 07/30/18 17:42 Dose: 1 applic Benzocaine/Menthol (Cepacol Sore Throat) 1 malika PO Q3 PRN PRN Reason: Sore Throat Last Admin: 07/28/18 08:41 Dose: 1 malika Bisacodyl (Dulcolax) 10 mg [place] DAILY PRN PRN Reason: Constipation Last Admin: 07/26/18 20:28 Dose: 10 mg Carvedilol (Coreg) 6.25 mg PO Q12 [facility] Last Admin: 07/30/18 09:04 Dose: 6.25 mg Furosemide (Lasix) 40 mg IVP DAILY [facility] Guaifenesin (Robitussin) 100 mg PO Q4 PRN PRN Reason: Cough Last Admin: 07/30/18 17:42 Dose: 100 mg Insulin Detemir (Levemir) 5 units SC HS [facility] Last Admin: 07/29/18 21:47 Dose: 5 units Polyethylene Glycol (Miralax) 17 gm PO DAILY [facility] Last Admin: 07/30/18 09:00 Dose: 17 gm Promethazine HCl (Phenergan) 12.5 mg PO Q6 PRN PRN Reason: Nausea/Vomiting Simethicone (Mylicon Chew Tab) 80 mg PO PCHS [facility] Last Admin: 07/30/18 17:42 Dose: 80 mg Sitagliptin Phosphate (Januvia) 50 mg PO DAILY [facility] Last Admin: 07/30/18 09:00 Dose: 50 mg Zolpidem Tartrate (Ambien) 5 mg PO HS PRN PRN Reason: Insomnia Last Admin: 07/29/18 21:43 Dose: 5 mg - Labs Labs: 07/29/18 06:25 07/30/18 06:08 - Constitutional Appears: No Acute Distress - Head Exam Head Exam: ATRAUMATIC - Eye Exam Eye Exam: absent: Scleral icterus - ENT Exam ENT Exam: Mucous Membranes Moist - Neck Exam Neck Exam: absent: Meningismus - Respiratory Exam Respiratory Exam: absent: Rales, Rhonchi, Wheezes, Respiratory Distress - Cardiovascular Exam Cardiovascular Exam: REGULAR RHYTHM, +S1, +S2 - GI/Abdominal Exam GI & Abdominal Exam: Soft. absent: Tenderness - Rectal Exam Rectal Exam: Deferred - Extremities Exam Extremities Exam: absent: Normal Inspection (chronic ulcer on left leg with clean and dry dressing) - Neurological Exam Neurological Exam: Alert - Psychiatric Exam Psychiatric exam: Normal Affect - Skin Skin Exam: Dry, Intact Assessment and Plan - Assessment and Plan (Free Text) Assessment: 77 yo male with history of DM, CHF systolic dysfunction, CKD stage III, CAD, HTN and previous DVT on Eliquist was admitted for lower extremity pain with ulcerations. He was seen by podiatry and cardiology. Had cardiac cath at [facility] on 07/27/18 and was supposed to have PTCA but quarter trimmer opted CABG would be better because of severe LAD disease. 1. LAD CAD as per Dr Mayo he did not stent the patient since he would be better of with CABG for possible transfer to [facility] as soon as bed is available heart healthy and diabetic diet continue Lipitor, Eliquis and Coreg 2. CHF systolic dysfunction, compensated EF 45-50 % continue Lasix and Coreg Spironolactone held because of hyperkalemia 3. CKD stage III stable Cr 1.[address] Ballard on consult 4. Hyperkalemia continue hold on Spironolactone serum K remained high in spite of receiving 15 gm of Kayexalate yesterday Kayexalate 30gm PO today repeat BMP in am 5. Chronic ulcers on lower extremities Podiatry on board following with dressing charges No surgical intervention Continue PT 6. Hypertension BP stable continue Coreg 7. History DVT on Eliquis
[2018-07-30 19:58] VITALS: TEMP 96.8
--- NOTE | 2018-07-30 20:14 | CP.PCM.CON ---
History of Present Illness - History of Present Illness History of Present Illness: consultation for CAD HPI: 77 year old male who has been followed by me over the course of last several months for CHF and right sided failure underwent cardiac catheterization at [facility] [place] [facility] with IVUS interrogation showing severe left main and LAD disease being worked up for possible MiDcab at [facility] by . Review of Systems - Review of Systems Systems not reviewed;Unavailable: Acuity of Condition - Constitutional Constitutional: As Per HPI - EENT Eyes: As Per HPI Ears: As Per HPI Nose/Mouth/Throat: As Per HPI - Cardiovascular Cardiovascular: As Per HPI - Respiratory Respiratory: As Per HPI - Gastrointestinal Gastrointestinal: As Per HPI - Genitourinary Genitourinary: As Per HPI - Reproductive: Male Reproductive:Male: As Per HPI - Musculoskeletal Musculoskeletal: As Per HPI - Integumentary Integumentary: As Per HPI - Neurological Neurological: As Per HPI - Psychiatric Psychiatric: As Per HPI - Endocrine Endocrine: As Per HPI - Hematologic/Lymphatic Hematologic: As Per HPI Past Patient History - Past Medical History & Family History Past Medical History?: Yes - Past Social History Smoking Status: Never Smoked - CARDIAC Hx Congestive Heart Failure: Yes Hx Hypertension: Yes Hx Peripheral Vascular Disease: Yes - PULMONARY Hx Respiratory Disorders: No - NEUROLOGICAL Hx Dementia: Yes - HEENT Hx HEENT Problems: No - RENAL Hx Chronic Kidney Disease: No - ENDOCRINE/METABOLIC Hx Endocrine Disorders: No - HEMATOLOGICAL/ONCOLOGICAL Hx Blood Disorders: No - INTEGUMENTARY Hx Dermatological Problems: No Hx Cellulitis: Yes - MUSCULOSKELETAL/RHEUMATOLOGICAL Hx Falls: No - GASTROINTESTINAL Hx Gastrointestinal Disorders: No - GENITOURINARY/GYNECOLOGICAL Hx Genitourinary Disorders: No - PSYCHIATRIC Hx Psychophysiologic Disorder: No Hx Substance Use: No - SURGICAL HISTORY Hx Surgeries: Yes Hx Cardiac Catheterization: Yes Hx Orthopedic Surgery: Yes (ankle and knee surgery) - ANESTHESIA Hx Anesthesia: Yes Hx Anesthesia Reactions: No Meds Allergies/Adverse Reactions: Allergies Allergy/AdvReac Type Severity Reaction Status Date / Time No Known Allergies Allergy Verified 07/23/18 17:21 - Medications Medications: Current Medications Acetaminophen (Tylenol 325mg Tab) 650 mg PO Q6 PRN PRN Reason: Pain, Mild (1-3) Last Admin: 07/28/18 09:45 Dose: 650 mg Albuterol Sulfate (Albuterol 0.083% Inhal Yady (2.5 Mg/3 Ml) Ud) 2.5 mg INH RQ6 PRN PRN Reason: Shortness of Breath Last Admin: 07/30/18 16:19 Dose: 2.5 mg Apixaban (Eliquis) 2.5 mg PO BID [facility]; Protocol Last Admin: 07/30/18 17:43 Dose: 2.5 mg Atorvastatin Calcium (Lipitor) 20 mg PO DAILY [facility] Last Admin: 07/30/18 09:01 Dose: 20 mg Bacitracin (Bacitracin Oint) 1 applic TOP BID [facility] Last Admin: 07/30/18 17:42 Dose: 1 applic Benzocaine/Menthol (Cepacol Sore Throat) 1 malkia PO Q3 PRN PRN Reason: Sore Throat Last Admin: 07/28/18 08:41 Dose: 1 malika Bisacodyl (Dulcolax) 10 mg [place] DAILY PRN PRN Reason: Constipation Last Admin: 07/26/18 20:28 Dose: 10 mg Carvedilol (Coreg) 6.25 mg PO Q12 [facility] Last Admin: 07/30/18 09:04 Dose: 6.25 mg Furosemide (Lasix) 40 mg IVP DAILY [facility] Guaifenesin (Robitussin) 100 mg PO Q4 PRN PRN Reason: Cough Last Admin: 07/30/18 17:42 Dose: 100 mg Insulin Detemir (Levemir) 5 units SC [facility] Last Admin: 07/29/18 21:47 Dose: 5 units Polyethylene Glycol (Miralax) 17 gm PO DAILY [facility] Last Admin: 07/30/18 09:00 Dose: 17 gm Promethazine HCl (Phenergan) 12.5 mg PO Q6 PRN PRN Reason: Nausea/Vomiting Simethicone (Mylicon Chew Tab) 80 mg PO [facility] Last Admin: 07/30/18 17:42 Dose: 80 mg Sitagliptin Phosphate (Januvia) 50 mg PO DAILY [facility] Last Admin: 07/30/18 09:00 Dose: 50 mg Physical Exam - Constitutional Appears: Well - Head Exam Head Exam: ATRAUMATIC, NORMAL INSPECTION, NORMOCEPHALIC - Eye Exam Eye Exam: EOMI, Normal appearance, PERRL Pupil Exam: NORMAL ACCOMODATION, PERRL - ENT Exam ENT Exam: Mucous Membranes Moist, Normal Exam - Neck Exam Neck exam: Positive for: Normal Inspection - Respiratory Exam Respiratory Exam: Clear to Auscultation Bilateral, NORMAL BREATHING PATTERN - Cardiovascular Exam Cardiovascular Exam: REGULAR RHYTHM - GI/Abdominal Exam GI & Abdominal Exam: Normal Bowel Sounds, Soft. absent: Tenderness - Extremities Exam Extremities exam: Positive for: normal inspection - Back Exam Back exam: NORMAL INSPECTION - Neurological Exam Neurological exam: Alert, CN II-XII Intact, Normal Gait, Oriented x3, Reflexes Normal - Psychiatric Exam Psychiatric exam: Normal Affect, Normal Mood - Skin Skin Exam: Dry, Intact, Normal Color, Warm Results - Vital Signs Recent Vital Signs: Last Vital Signs Temp 96.8 F L 07/30/18 19:58 Pulse 67 07/30/18 19:58 Resp 20 07/30/18 19:58 BP 132/65 07/30/18 19:58 Pulse Ox 95 07/30/18 19:58 - Labs Result Diagrams: 07/29/18 06:25 07/30/18 06:08 Labs: Laboratory Results - last 24 hr 07/29/18 07/30/18 07/30/18 21:27 06:07 06:08 Sodium 134 Potassium 5.3 H Chloride 103 Carbon Dioxide 23 Anion Gap 13 BUN 80 H Creatinine 1.9 H Est GFR ( Amer) 42 Est GFR (Non-Af Amer) 35 POC Glucose (mg/dL) 162 H 97 Random Glucose 86 Calcium 8.6 07/30/18 07/30/18 11:26 16:15 Sodium Potassium Chloride Carbon Dioxide Anion Gap BUN Creatinine Est GFR ( Amer) Est GFR (Non-Af Amer) POC Glucose (mg/dL) 124 H 163 H Random Glucose Calcium Assessment & Plan (1) CAD (coronary artery disease) Assessment and Plan: plan for [facility]AB at [facility] next week by GDMT for CAD Status: Acute (2) Essential (primary) hypertension Status: Acute (3) Hyperglycemia Status: Acute (4) Hyperkalemia Status: Acute (5) Hypertension Status: Acute (6) Lower extremity pain Status: Acute (7) Right-sided heart failure Status: Acute
[2018-07-31] MEDS: Albuterol 0.083% Inhal Sol (2.5 mg/3 mL) UD INH PRN (00:21)
[2018-07-31] MEDS: Insulin Detemir 100 Units/ml Inj SC SCH (00:46)
[2018-07-31] MEDS: guaiFENesin 100 mg/5 ml Syrup UD PO PRN (02:18)
[2018-07-31 07:18] LABS: CALCIUM 8.5 mg/dL (8.4-10.2)
[2018-07-31] MEDS: Bacitracin OINT 15GM TOP SCH (08:32)
[2018-07-31] MEDS: Simethicone 80 mg Chewtab PO SCH ×2 (08:33→12:09)
--- NOTE | 2018-07-31 11:32 | CP.PCM.DIS ---
Provider - Provider Date of Admission: 07/23/18 17:22 Attending physician: Mirza Savage MD Primary care physician: Dr. Savage Consults: Podiatry Nephro cardiology Time Spent in preparation of Discharge (in minutes): 15 Hospital Course - Lab Results Lab Results: Most Recent Lab Values WBC 8.4 K/uL (4.8-10.8) 07/29/18 06:25 RBC 4.33 Mil/uL (4.40-5.90) L 07/29/18 06:25 Hgb 13.7 g/dL (12.0-18.0) 07/29/18 06:25 Hct 41.4 % (35.0-51.0) 07/29/18 06:25 MCV 95.6 fl (80.0-94.0) H 07/29/18 06:25 MCH 31.6 pg (27.0-31.0) H 07/29/18 06:25 MCHC 33.0 g/dL (33.0-37.0) 07/29/18 06:25 RDW 18.1 % (11.5-14.5) H 07/29/18 06:25 Plt Count 212 K/uL (130-400) 07/29/18 06:25 pCO2 29 mm/Hg (35-45) L 07/29/18 12:41 pO2 128 mm/Hg (80-100) H 07/29/18 12:41 HCO3 22.4 mmol/L (21-28) 07/29/18 12:41 ABG pH 7.44 (7.35-7.45) 07/29/18 12:41 ABG Total CO2 20.6 mmol/L (22-28) L 07/29/18 12:41 ABG O2 Saturation 99.8 % (95-98) H 07/29/18 12:41 ABG O2 Content 19.4 ML/dL (15-23) 07/29/18 12:41 ABG Base Excess -3.2 mmol/L (-2.0-3.0) L 07/29/18 12:41 ABG Hemoglobin 14.3 g/dL (11.7-17.4) 07/29/18 12:41 ABG Carboxyhemoglobin 2.3 % (0.5-1.5) H 07/29/18 12:41 POC ABG HHb (Measured) 0.2 % (0.0-5.0) 07/29/18 12:41 ABG Methemoglobin 1.8 % (0.0-3.0) 07/29/18 12:41 ABG O2 Capacity 19.4 mL/dL (16-24) 07/29/18 12:41 Robb Test Yes 07/29/18 12:41 A-a O2 Difference 57.0 mm/Hg 07/29/18 12:41 Hgb O2 Saturation 95.7 % (95.0-98.0) 07/29/18 12:41 FiO2 31.0 % 07/29/18 12:41 Blood Gas Comments 3l/m nc,rb 07/29/18 12:41 Sodium 133 mmol/l (132-148) 07/31/18 06:00 Potassium 4.7 MMOL/L (3.6-5.0) 07/31/18 06:00 Chloride 102 mmol/L (98-107) 07/31/18 06:00 Carbon Dioxide 19 mmol/L (22-30) L 07/31/18 06:00 Anion Gap 17 (10-20) 07/31/18 06:00 BUN 85 mg/dl (9-20) H 07/31/18 06:00 Creatinine 2.0 mg/dl (0.8-1.5) H 07/31/18 06:00 Est GFR ( Amer) 39 07/31/18 06:00 Est GFR (Non-Af Amer) 33 07/31/18 06:00 POC Glucose (mg/dL) 142 mg/dL (65-110) H 07/31/18 10:59 Random Glucose 151 mg/dL (75-110) H 07/31/18 06:00 Calcium 8.5 mg/dL (8.4-10.2) 07/31/18 06:00 Phosphorus 4.8 mg/dl (2.5-4.5) H 07/29/18 06:25 Magnesium 2.5 MG/DL (1.6-2.3) H 07/29/18 06:25 Total Bilirubin 1.0 mg/dl (0.2-1.3) 07/29/18 06:25 AST 63 U/L (17-59) H D 07/29/18 06:25 ALT 42 U/L (21-72) 07/29/18 06:25 Alkaline Phosphatase 357 U/L (38-126) H D 07/29/18 06:25 Total Protein 6.7 G/DL (6.3-8.2) 07/29/18 06:25 Albumin 3.1 g/dL (3.5-5.0) L 07/29/18 06:25 Globulin 3.6 gm/dL (2.2-3.9) 07/29/18 06:25 Albumin/Globulin Ratio 0.9 (1.0-2.1) L 07/29/18 06:25 - Hospital Course Hospital Course: 77 yo male with history of DM, CHF systolic dysfunction, CKD stage III, CAD, HTN and previous DVT on Eliquist was admitted for lower extremity pain with ulcerations. He was seen by podiatry and cardiology. Had cardiac cath at [facility] on 07/27/18 and was supposed to have PTCA but certified teacher assistant opted CABG would be better because of severe LAD disease. Patient marta transferred to [facility] for continuation of his therapy . Plan is for patient to follow up with Dr. Lara at [facility] for CABG next week Patient is hemodynamically stable, doing well. Will be transferred today to [facility] for more PT 1. LAD CAD as per Dr Mayo he did not stent the patient since he would be better of with CABG for possible transfer to [facility] as soon as bed is available heart healthy and diabetic diet continue Lipitor, Eliquis and Coreg 2. CHF systolic dysfunction, compensated EF 45-50 % continue Lasix and Coreg Spironolactone held because of hyperkalemia 3. CKD stage III stable Cr 2 Dr Ballard on consult 4. Hyperkalemia continue hold on Spironolactone Continue Kayexalate 30gm PO today 5. Chronic ulcers on lower extremities Podiatry on board following with dressing charges No surgical intervention Continue PT 6. Hypertension BP stable continue Coreg 7. History DVT on Eliquis Discharge Exam - Head Exam Head Exam: ATRAUMATIC, NORMOCEPHALIC - Eye Exam Eye Exam: EOMI, Normal appearance, PERRL Pupil Exam: NORMAL ACCOMODATION - ENT Exam ENT Exam: Mucous Membranes Moist, Normal Exam - Neck Exam Neck exam: Full Rom, Normal Inspection - Respiratory Exam Respiratory Exam: Clear to PA & Lateral, NORMAL BREATHING PATTERN. absent: Rales, Rhonchi, Wheezes - Cardiovascular Exam Cardiovascular Exam: REGULAR RHYTHM, RRR, +S1, +S2. absent: JVD - GI/Abdominal Exam GI & Abdominal Exam: Normal Bowel Sounds, Soft. absent: Distended, Guarding, Rebound, Tenderness - Rectal Exam Rectal Exam: Deferred - Extremities Exam Additional comments: dressing to lower extremities - Back Exam Back exam: NORMAL INSPECTION - Neurological Exam Neurological exam: Alert, CN II-XII Intact, Oriented x3, Reflexes Normal - Psychiatric Exam Psychiatric exam: Normal Affect - Skin Skin Exam: Dry, Intact, Normal Color, Warm Discharge Plan - Discharge Medications Prescriptions: Furosemide [Lasix] 40 mg PO DAILY #30 tablet - Follow Up Plan Condition: GOOD Disposition: TRANSF TO SNF Additional Instructions: Follow up with Dr Lara at [facility] for CABG Referrals: Mirza Savage MD [Staff Provider] - Yuan Mayo MD [Staff Provider] -
[2018-07-31] MEDS: Benzocaine/Menthol (Cepacol) Lozenge PO PRN (12:09)
[2018-07-31] MEDS: POLYETHYLENE GLYCOL 3350 17 GM/Dose PACKET PO SCH (12:09)
[2018-07-31 14:58] VITALS: BP 103/57; PULSE 60; O2SAT 100
== END 2018-07-31 15:55 | DRG 300 ==
LOC: H.TCU 17:22
PROVIDERS: ADMIT Internal Medicine Pulmonary Disease; ATTEND Internal Medicine Pulmonary Disease
PROC: F07M6FZ Therapeutic Exercise Treatment of Musculoskeletal System - Whole Body using Assistive, Adaptive, Supportive or Protective Equipment (ICD-10-PCS; principal; 2018-07-24)
PROC: F08Z4FZ Home Management Treatment using Assistive, Adaptive, Supportive or Protective Equipment (ICD-10-PCS; 2018-07-24)
DX: E11.51 Type 2 diabetes mellitus with diabetic peripheral angiopathy without gangrene (principal); L97.929 Non-pressure chronic ulcer of unspecified part of left lower leg with unspecified severity; N17.9 Acute kidney failure, unspecified; I13.0 Hypertensive heart and chronic kidney disease with heart failure and stage 1 through stage 4 chronic kidney disease, or unspecified chronic kidney disease; I50.20 Unspecified systolic (congestive) heart failure; L03.90 Cellulitis, unspecified; L97.919 Non-pressure chronic ulcer of unspecified part of right lower leg with unspecified severity; N18.3 Chronic kidney disease, stage 3 (moderate); Z86.718 Personal history of other venous thrombosis and embolism; Z95.1 Presence of aortocoronary bypass graft; Z98.61 Coronary angioplasty status; E11.22 Type 2 diabetes mellitus with diabetic chronic kidney disease; E11.622 Type 2 diabetes mellitus with other skin ulcer; E11.65 Type 2 diabetes mellitus with hyperglycemia; E87.5 Hyperkalemia; F03.90 Unspecified dementia, unspecified severity, without behavioral disturbance, psychotic disturbance, mood disturbance, and anxiety; I25.10 Atherosclerotic heart disease of native coronary artery without angina pectoris